=== PATIENT | male | born 1955 | race Caucasian/White ===

== ENCOUNTER → 2023-11-11 07:40 | Outpatient (REF) | payer MEDICARE, OTHER, SELFPAY ==
[2023-11-11 08:19] VITALS: BP 148/101; BP_SYST 79
[2023-11-11] MEDS: ANCEF 10 IV (08:57)
[2023-11-11 10:05] VITALS: BP 147/100; BP_SYST 67
[2023-11-11 10:20] VITALS: BP 138/96; BP_SYST 61
== END ==
LOC: RADI 07:40
PROVIDERS: ATTENDING PHYSICIAN Internal Medicine Hematology & Oncology
DX: C82.95 Follicular lymphoma, unspecified, lymph nodes of inguinal region and lower limb (principal); Z79.899 Other long term (current) drug therapy
CPT/HCPCS: 36561; 76937; 77001; 99152; 99153; C1788

== ENCOUNTER → 2023-11-14 15:37 | Outpatient (REF) | payer MEDICARE, OTHER, SELFPAY ==
[2023-11-14 16:28] LABS: % Basophils 0.4 % (0-2); % Eosinophils 2.8 % (0-6); % Immature Granulocytes 0.4 % (0-0.5); % Lymphocytes 7.6 % (20.5-51.1); % Monocytes 8.3 % (1.7-9.3); % Neutrophils 80.5 % (42.2-75.2); Absolute Eosinophils 0.2 10^3/uL (0-0.7); Absolute Lymphocytes 0.4 10^3/uL (1.2-3.4); Absolute Monocytes 0.5 10^3/uL (0.1-0.6); Absolute Neutrophils 4.6 10^3/uL (1.4-6.5); Hematocrit 31.2 % (39.0-52.0); Hemoglobin 11.3 g/dL (13.0-18.0); Mean Corp Hgb Conc. 36.2 g/dL (33.0-37.0); Mean Platelet Volume 9.3 fL (7.4-10.4); Nucleated Red Blood Cells % 0 % (-); Platelet Count 141 10^3/uL (130-400); Red Blood Cell Count 3.32 10^6/uL (4.70-6.10); Red Cell Dist. Width 14.1 % (11.5-14.5); White Blood Cell Count 5.7 10^3/uL (4.8-10.8)
[2023-11-14 16:38] LABS: INR 1.24; PT 15.6 Sec (11.4-14.6)
[2023-11-14 16:39] LABS: APTT 30.8 Sec (23.4-35.0)
[2023-11-14 16:53] LABS: ALT (SGPT) 10 U/L (0-50); AST (SGOT) 20 U/L (17-59); Albumin 4.5 g/dl (3.5-5.0); Alkaline Phosphatase 61 U/L (38-126); Blood Urea Nitrogen 16 mg/dl (9-20); Calcium 9.8 mg/dl (8.4-10.2); Carbon Dioxide 24 mmol/L (22-30); Chloride 104 mmol/L (98-107); Glucose 90 mg/dl (70-99); Potassium 4.3 mmol/L (3.5-5.1); Sodium 138 mmol/L (135-145); Total Bilirubin 1.3 mg/dl (0.2-1.3); Total Protein 6.6 g/dl (6.3-8.2); eGFR > 60.00
[2023-11-14 16:55] LABS: Uric Acid 3.6 mg/dl (3.5-8.5)
== END ==
LOC: REG 15:37
PROVIDERS: ATTENDING PHYSICIAN Surgery; FAMILY PHYSICIAN Internal Medicine Hematology & Oncology
DX: C82.95 Follicular lymphoma, unspecified, lymph nodes of inguinal region and lower limb (principal); Z01.812 Encounter for preprocedural laboratory examination; R60.9 Edema, unspecified
CPT/HCPCS: 36415; 80053; 84550; 85025; 85610; 85730

== ENCOUNTER 2023-11-19 06:13 | Day surgery (SDC) | payer MEDICARE, OTHER, SELFPAY ==
--- NOTE | 2023-11-15 14:53 | PTCARENOTE ---
Abnormal EKG ok per Dr Mary.
[2023-11-19] VITALS (8 sets, daily range): BP systolic 12–148; BP diastolic 61–96; BMI 31.8
[2023-11-19] MEDS: NORMOSOL-R 1000 IV (12:14)
[2023-11-19] MEDS: HEPARIN 5000 UNITS SC (12:15)
[2023-11-19] MEDS: TYLENOL 1000 MG PO (12:15)
[2023-11-19] MEDS: NEURONTIN 300 MG PO (12:15)
--- NOTE | 2023-11-19 13:38 | OR.RPT ---
Operative Report
Operative Report
Preoperative Diagnosis: Left inguinal lymphadenopathy - R591
Postoperative Diagnosis: Same
Surgeon: Giles Ramirez M.D.
Operation: Left inguinal lymph node biopsy - [id number]
Anesthesia:� Local with IV sedation
Estimated Blood Loss: Minimal
Drains: None
Specimen: Left Inguinal Lymph Node
Complications: �None
Procedure:
The patient was taken to the operating room and placed in the usual supine position. After adequate IV sedation was obtained, the patient's left inguinal region was prepped and draped in the usual sterile fashion. This area was injected with 1%
lidocaine. An incision was made over the area with a #15 blade. The subcutaneous tissue was divided with electrocautery. An enlarged lymph was identified. The lymph node was carefully dissected, resected of the vein, and sent for pathology
evaluation. After obtaining adequate hemostasis, the incision was closed in multiple layers. The fascia was reapproximated with # 3-0 Vicryl, and the skin was reapproximated with #4-0 Monocryl in a running subcuticular fashion. The patient tolerated
the procedure well. The final instrument, needle, and sponge counts were correct. The patient was transferred to the recovery room.
--- NOTE | 2023-11-19 13:38 | W.IMMPOSTOP ---
Surgical Immed Post Op Note
-
Preoperative Diagnosis: Left inguinal lymphadenopathy - R591
Postoperative Diagnosis: Same
Surgeon: Giles Ramirez M.D.
Operation: Left inguinal lymph node biopsy - [id number]
Anesthesia:� Local with IV sedation
Estimated Blood Loss: Minimal
Drains: None
Specimen: Left Inguinal Lymph Node
Complications: �None
--- NOTE | 2023-11-19 14:29 | PTCARENOTE ---
Report given to Linnette CASTILLO, assumed car eof pt,
== END 2023-11-19 15:10 | disposition home or self-care (01) ==
LOC: SDS 06:13
PROVIDERS: ATTENDING PHYSICIAN Surgery; FAMILY PHYSICIAN Internal Medicine Hematology & Oncology
DX: C82.18 Follicular lymphoma grade II, lymph nodes of multiple sites (principal); R59.0 Localized enlarged lymph nodes; R59.1 Generalized enlarged lymph nodes
CPT/HCPCS: 38531; 88305; 88341; 88342

== ENCOUNTER → 2023-12-06 15:19 | Outpatient (REF) | payer MEDICARE, OTHER, SELFPAY ==
[2023-12-06 16:22] LABS: % Basophils 0.4 % (0-2); % Eosinophils 3.2 % (0-6); % Immature Granulocytes 0.4 % (0-0.5); % Lymphocytes 7.6 % (20.5-51.1); % Monocytes 8.7 % (1.7-9.3); % Neutrophils 79.7 % (42.2-75.2); Absolute Eosinophils 0.2 10^3/uL (0-0.7); Absolute Lymphocytes 0.4 10^3/uL (1.2-3.4); Absolute Monocytes 0.5 10^3/uL (0.1-0.6); Absolute Neutrophils 4.5 10^3/uL (1.4-6.5); Hematocrit 29.7 % (39.0-52.0); Hemoglobin 10.9 g/dL (13.0-18.0); Mean Corp Hgb Conc. 36.7 g/dL (33.0-37.0); Mean Corpuscular Hgb 34.3 pg (27.0-31.0); Mean Corpuscular Volume 93.4 fL (80.0-94.0); Mean Platelet Volume 9.5 fL (7.4-10.4); Nucleated Red Blood Cells % 0 % (-); Platelet Count 166 10^3/uL (130-400); Red Blood Cell Count 3.18 10^6/uL (4.70-6.10); Red Cell Dist. Width 13.6 % (11.5-14.5); White Blood Cell Count 5.7 10^3/uL (4.8-10.8)
[2023-12-06 16:34] LABS: ALT (SGPT) < 10 U/L (0-50); AST (SGOT) 19 U/L (17-59); Albumin 4.2 g/dl (3.5-5.0); Alkaline Phosphatase 66 U/L (38-126); Blood Urea Nitrogen 17 mg/dl (9-20); Calcium 9.9 mg/dl (8.4-10.2); Carbon Dioxide 23 mmol/L (22-30); Chloride 107 mmol/L (98-107); Glucose 85 mg/dl (70-99); Potassium 4.2 mmol/L (3.5-5.1); Sodium 139 mmol/L (135-145); Total Bilirubin 1.1 mg/dl (0.2-1.3); Total Protein 6.3 g/dl (6.3-8.2); eGFR > 60.00
== END ==
LOC: OIDL 15:19
PROVIDERS: ATTENDING PHYSICIAN Internal Medicine Hematology & Oncology
DX: C82.95 Follicular lymphoma, unspecified, lymph nodes of inguinal region and lower limb (principal)
CPT/HCPCS: 80053; 85025

== ENCOUNTER → 2023-12-16 11:51 | Outpatient (REF) | payer MEDICARE, OTHER, SELFPAY ==
[2023-12-16 09:41] LABS: % Basophils 0.4 % (0-2); % Eosinophils 2.2 % (0-6); % Immature Granulocytes 0.4 % (0-0.5); % Monocytes 14.2 % (1.7-9.3); % Neutrophils 66.8 % (42.2-75.2); Absolute Eosinophils 0.1 10^3/uL (0-0.7); Absolute Lymphocytes 0.4 10^3/uL (1.2-3.4); Absolute Monocytes 0.3 10^3/uL (0.1-0.6); Absolute Neutrophils 1.5 10^3/uL (1.4-6.5); Hematocrit 27.9 % (39.0-52.0); Hemoglobin 10.1 g/dL (13.0-18.0); Mean Corp Hgb Conc. 36.2 g/dL (33.0-37.0); Mean Corpuscular Volume 93.9 fL (80.0-94.0); Mean Platelet Volume 9.4 fL (7.4-10.4); Nucleated Red Blood Cells % 0 % (-); Platelet Count 104 10^3/uL (130-400); Red Blood Cell Count 2.97 10^6/uL (4.70-6.10)
[2023-12-16 10:03] LABS: White Blood Cell Count 2.3 10^3/uL (4.8-10.8)
[2023-12-16 10:24] LABS: ALT (SGPT) 14 U/L (0-50); AST (SGOT) 30 U/L (17-59); Albumin 3.9 g/dl (3.5-5.0); Blood Urea Nitrogen 15 mg/dl (9-20); Carbon Dioxide 22 mmol/L (22-30); Glucose 115 mg/dl (70-99); Potassium 3.9 mmol/L (3.5-5.1); Total Bilirubin 1.8 mg/dl (0.2-1.3); Total Protein 6.1 g/dl (6.3-8.2); eGFR > 60.00
[2023-12-16 10:29] LABS: Uric Acid 4.2 mg/dl (3.5-8.5)
[2023-12-16 10:36] LABS: Alkaline Phosphatase 60 U/L (38-126); Calcium 8.9 mg/dl (8.4-10.2); Chloride 106 mmol/L (98-107); Sodium 139 mmol/L (135-145)
== END ==
LOC: OIDL 11:51
PROVIDERS: ATTENDING PHYSICIAN Internal Medicine Hematology & Oncology
DX: C82.95 Follicular lymphoma, unspecified, lymph nodes of inguinal region and lower limb (principal)
CPT/HCPCS: 80053; 84550; 85025

== ENCOUNTER → 2024-02-11 13:11 | Outpatient (REF) | payer MEDICARE, OTHER, SELFPAY | LOC: RCS 13:11 | PROVIDERS: ATTENDING PHYSICIAN Nurse Practitioner Adult Health; REFERRING PHYSICIAN Internal Medicine Hematology & Oncology | DX: C82.95 Follicular lymphoma, unspecified, lymph nodes of inguinal region and lower limb (principal); G89.3 Neoplasm related pain (acute) (chronic) | CPT/HCPCS: 93005 ==

== ENCOUNTER 2024-02-16 16:25 | Inpatient (IN) | payer MEDICARE, OTHER, SELFPAY ==
[2024-02-16] VITALS (11 sets, daily range): BP systolic 90–121; BP diastolic 50–93; BMI 32.9
[2024-02-16 08:48] LABS: % Basophils 2.5 % (0-2); % Eosinophils 1.7 % (0-6); % Immature Granulocytes 0.4 % (0-0.5); % Monocytes 11.3 % (1.7-9.3); % Neutrophils 71.1 % (42.2-75.2); Absolute Basophils 0.1 10^3/uL (0-0.2); Absolute Eosinophils 0.1 10^3/uL (0-0.7); Absolute Lymphocytes 0.7 10^3/uL (1.2-3.4); Absolute Monocytes 0.6 10^3/uL (0.1-0.6); Absolute Neutrophils 3.7 10^3/uL (1.4-6.5); Hematocrit 26.2 % (39.0-52.0); Mean Corp Hgb Conc. 34.4 g/dL (33.0-37.0); Mean Corpuscular Hgb 33.5 pg (27.0-31.0); Mean Corpuscular Volume 97.4 fL (80.0-94.0); Mean Platelet Volume 8.9 fL (7.4-10.4); Nucleated Red Blood Cells % 0 % (-); Platelet Count 163 10^3/uL (130-400); Red Blood Cell Count 2.69 10^6/uL (4.70-6.10); Red Cell Dist. Width 14.9 % (11.5-14.5); White Blood Cell Count 5.2 10^3/uL (4.8-10.8)
[2024-02-16 09:07] LABS: ALT (SGPT) 25 U/L (0-50); AST (SGOT) 132 U/L (17-59); Albumin 3.7 g/dl (3.5-5.0); Alkaline Phosphatase 67 U/L (38-126); Blood Urea Nitrogen 13 mg/dl (9-20); Calcium 9.3 mg/dl (8.4-10.2); Carbon Dioxide 20 mmol/L (22-30); Chloride 107 mmol/L (98-107); Estimated Creatinine Clearance 63 ml/min; Glucose 113 mg/dl (70-99); Potassium 3.9 mmol/L (3.5-5.1); Sodium 137 mmol/L (135-145); Total Bilirubin 1.5 mg/dl (0.2-1.3); Total Protein 5.7 g/dl (6.3-8.2); eGFR > 60.00
--- NOTE | 2024-02-16 09:09 | ED.GENMED ---
History of Present Illness
General
Chief Complaint: Musculo-Skeletal Complaint
Source: patient
Time Seen by Provider: 02/16/24 08:49
History of Present Illness
History of Present Illness:
68yoM with a history of follicular lymphoma undergoing chemotherapy and hypertension presenting with his for evaluation of bone pain. Patient reports pain in his bilateral shoulders, knees, and elbows. The pain is worst in the left
shoulder/elbow region. The symptoms started a few weeks ago when he started a new chemotherapy regimen. His pain has become increased over the past 1.5 weeks. He was told by his oncologist that his symptoms were a side effect of his chemotherapy. He
denies any injuries. He has oxycodone 10mg at home which he has been taking every 6-8 hours with temporary relief. He also reports swelling in his scrotal region and ankles over the past few weeks which he was also told was a side effect of his
chemotherapy. He denies any shortness of breath. He recently finished a 21 day course of PO Revlimid last week which is being discontinued by his oncologist due to side effects.
Phy Exam
Physical Exam
Physical Exam:
Chronically ill appearing male, appears fatigued, non toxic
General Physical Exam
General Presentation: no apparent distress
General Skin: warm and dry
General Habitus: elderly
General Mental: alert
Cardiovascular Exam
Cardiovascular Exam: regular rate/rhythm and systolic murmur
Pulmonary Exam
Pulmonary Exam: lungs clear, no respiratory distress, no crackles and no wheezing
Gastrointestinal Exam
Gastrointestinal Exam: non tender, soft and non distended
Genitourinary Exam Male
Exam Male: other (Scrotal and penile edema noted. )
Musculoskeletal Exam
Musculoskeletal Exam: edema (Edema to bilateral lower extremities, R>L)
Skin Exam
Skin Exam: normal color and warm/dry
Course
Orders/Labs/Results
Orders:
Orders
02/16/24 08:35
BNP [NT-proBNP] Urgent
Complete Blood Count/With Diff Urgent
Comprehensive Metabolic Panel Urgent
Troponin I Urgent
Comment: ADD ON
02/16/24 09:05
Electrocardiogram (*1) Urgent
Reason for Study: Other
Other Reason for Exam: leg swelling
EKG- Treatment ONCE
HYDROmorphone [Dilaudid] 1 mg IV NOW STA
Ondansetron Injectable [Zofran] 4 mg IV NOW STA
CR Chest - 2 Views Urgent
Comment:
Reason For Exam: Leg swelling
CR Shoulder - Left Min 2 View* Urgent
Comment:
Reason For Exam: Pain
02/16/24 09:30
Add On- LAB Urgent
Tests Added?: troponin
02/16/24 09:54
Furosemide [Lasix] 40 mg IV NOW STA
02/16/24 10:01
HYDROmorphone [Dilaudid] 1 mg IV NOW STA
02/16/24 11:07
Electrocardiogram (*1) Urgent
Reason for Study: Other
Other Reason for Exam: Shoulder pain
EKG- Treatment ONCE
02/16/24 12:14
Ondansetron Injectable [Zofran] 4 mg .ROUTE .STK-MED ONE
02/16/24 12:15
Ondansetron Injectable [Zofran] 4 mg IV NOW STA
02/16/24 13:17
HYDROmorphone [Dilaudid] 1 mg .ROUTE .STK-MED ONE
HYDROmorphone [Dilaudid] 1 mg IV NOW STA
02/16/24 13:58
Add On- LAB Urgent
Tests Added?: Direct and indirect bilirubin
02/16/24 14:13
Urinalysis Reflex To Culture Routine
Date Specimen was Collected: 02/16/24
Time Specimen was Collected: 14:44
MRSA Screen Routine
KAVON Source: Nose
Specimen Description:
02/16/24 14:17
Bilirubin Direct [Direct Bilirubin] Routine
Ferritin Routine
Iron Routine
TIBC [Total Iron Binding] Routine
Transferrin [S] Routine
Troponin I Q6H
Comment: cancel next Troponin if previous troponin level is normal
02/16/24 14:21
Babesia Smear [Blood Parasites] Routine
KAVON Source: Blood/Venous
Specimen Description:
Comment: Peripheral blood smear
02/16/24 15:00
Aspirin Low Dose EC [Aspir Low (Enteric Coated)] 81 mg PO DAILY
Metoprolol Xl [Toprol Xl] 25 mg PO DAILY
02/16/24 20:00
Troponin I Q6H
Comment: cancel next Troponin if previous troponin level is normal
02/17/24 02:00
Troponin I Q6H
Comment: cancel next Troponin if previous troponin level is normal
02/17/24 06:00
Echo 2D MMode Color/Doppler [Echo 2D MMode Color/Doppler] IN AM
Reason for Study: KS, chf
Lipid Profile [Cardiovascular Evaluation] IN AM
02/17/24 08:00
Troponin I Q6H
Comment: cancel next Troponin if previous troponin level is normal
Abnormal Lab Results
02/16/24 02/16/24
08:35 14:17
RBC 2.69 L 10^6/uL
(4.70-6.10)
Hgb 9.0 L g/dL
(13.0-18.0)
Hct 26.2 L %
(39.0-52.0)
MCV 97.4 H fL
(80.0-94.0)
MCH 33.5 H pg
(27.0-31.0)
RDW 14.9 H %
(11.5-14.5)
Absolute Lymphs (auto) 0.7 L 10^3/uL
(1.2-3.4)
Lymphocytes % 13.0 L %
(20.5-51.1)
Monocytes % 11.3 H %
(1.7-9.3)
Basophils % 2.5 H %
(0-2)
Carbon Dioxide 20 L mmol/L
(22-30)
Glucose 113 H mg/dl
(70-99)
Iron 41 L ug/dl
(49-181)
% Saturation 15 L %
(20-50)
Total Bilirubin 1.5 H mg/dl
(0.2-1.3)
AST 132 H U/L
(17-59)
Troponin I 15.800 H* ng/ml 17.300 H* ng/ml
Total Protein 5.7 L g/dl
(6.3-8.2)
02/16/24 08:35
02/16/24 08:35
Vital Signs
Initial and Last Documented VS:
Initial Vital Signs
Temp Pulse Resp BP Pulse Ox
98.5 F 105 18 120/86 98
02/16/24 08:11 02/16/24 08:11 02/16/24 08:11 02/16/24 08:11 02/16/24 08:11
Last Documented Vital Signs
Temp Pulse Resp BP Pulse Ox
98.5 F 99 22 110/50 99
02/16/24 08:11 02/16/24 15:01 02/16/24 15:01 02/16/24 14:00 02/16/24 15:01
MDM/Problems Addressed
Differential Diagnosis Includes:
68yoM here with bone pain. Recently finished a new round of chemotherapy. Also having scrotal/ankle edema. No CP/SOB. He is afebrile and hemodynamically stable. He appears fatigued but is non-toxic. Differential diagnosis includes but is not limited
to: chemotherapy side effect, cancer related pain, pathologic fracture, CHF
Initial ED plan: Check cardiac labs, EKG, left shoulder x-rays, and CXR. IV Dilaudid and Zofran for symptoms.
*EKG
Interpreted by ED Provider?: Yes
EKG Intrepretation Date: 02/16/24
EKG Intrepretation Time: 09:20
Interpretation: abnormal
Heart Rate: 100
Rate: normal
Rhythm: sinus
Modena: normal axis
Interval: normal interval
Ischemia: ST depression (ST depressions in I, aVL, V3-V6)
*Critical Care Note
Total Time (30-74mins, 75-104mins- exclusive of procedures): Not Applicable
Update Note
Update Note:
BNP elevated around 5200. EKG shows NSR with ST and T wave changes. Troponin came back elevated at 15. CXR shows evidence of pulmonary edema. IV Lasix given and EKG sent to cardiology for review. He was admitted for further management.
ED Attending Note
-
Portions of this chart may have been created with voice recognition software.� Occasional wrong word or��sound alike� substitutions may have occurred due to the inherent limitations of voice recognition software.
Discharge Plan
Departure
Patient Disposition: Admit
Date of Disposition: 02/16/24
Time of Disposition: 11:56
Presentation/result/management discussed w/ accepting MD/DO: Hospitalist
Discharge Problem:
Elevated troponin, Pulmonary edema, Arthralgia
Prescriptions:
No Action
atorvastatin 10 mg tablet
10 mg PO QPM
terazosin 2 mg capsule
4 mg PO QPM
benazepril 40 mg tablet
40 mg PO QPM
acyclovir 400 mg Tablet
400 mg PO BID
allopurinol 300 mg Tablet
300 mg PO QPM
Medical Marijuana
2 gummy PO DAILYPRN PRN (Reason: mild pains/anxiety)
ondansetron HCl [Zofran] 8 mg Tablet
8 mg PO [id number] PRN (Reason: nausea)
acetaminophen [Tylenol 8 Hour] 650 mg Tablet Extended Release
1,300 mg PO [id number] PRN (Reason: mildpain)
docusate sodium [Colace] 100 mg Capsule
100 mg PO BID
loratadine [Claritin] 10 mg Tablet
10 mg PO DAILY
oxycodone 10 mg Tablet
10 mg PO Q6HPRN PRN (Reason: severe pains)
Referrals:
UNKNOWN - PT DOES,NOT KNOW [Family Provider] -
Interventions
Interventions:
*Risk Screen - Suicide Last Done: 02/16/24 08:32
*General Assessment Last Done: 02/16/24 08:32
*Neglect/Abuse Screening Last Done: 02/16/24 08:33
ED- Fall Risk Assessment Last Done: 02/16/24 10:00
*ED COVID-19 Vaccine History Last Done: 02/16/24 08:32
ED-Musculoskeletal Assessment Last Done: 02/16/24 10:00
Discharge Date and Time
Print Language: [place] CITIZEN
[2024-02-16 09:10] LABS: NT-proBNP 5250 pg/ml
[2024-02-16] MEDS: ZOFRAN 4 MG IV ×2 (09:12→12:15)
[2024-02-16] MEDS: DILAUDID 1 MG IV ×3 (09:12→13:18)
[2024-02-16] MEDS: LASIX 40 MG IV (10:10)
--- NOTE | 2024-02-16 13:39 | HPS.HSE ---
Addendum entered and electronically signed by Maricruz cMrae MD 02/16/24 16:56:
68-year-old male presented with bilateral shoulder pain, elbow pain, ankle pain. Patient denies any chest pain or shortness of breath. He does not have any abdominal pain. He has follicular lymphoma and was treated with Revlimid only had 1 cycle.
Finished 1 and half weeks ago. This was stopped by his oncologist because of his pain and side effects. Patient is to start Rituxan tomorrow. He was also noted some mild increased edema the lower extremities.
I personally performed a history and physical exam of the patient and discussed management with the resident. I reviewed the resident's note and agree with the documented findings and plan of care HPI/CC except change in documentation.
On examination patient is awake and alert not in any distress
Cardiovascular system S1-S2 appreciated
Chest few rales at bases
Abdomen soft
Bilateral lower extremity edema right more than left
No redness or edema of the joints
No skin rashes
# Arthralgias-unclear cause. No evidence of redness or edema
Check sed rate and CRP
# Shoulder pain
If D-dimer is positive consider CT PE study
# Elevated troponin
Unclear of side effects of Revlimid or secondary to myocarditis or any other reasons
EKG with no acute ischemic changes
Check routine echo
Trend troponin
Patient with no chest pain or shortness of breath
Hold off on heparin
Discussed with Dr. Garvey-
# Follicular lymphoma
Consult hematology oncology
Continue allopurinol and acyclovir
# Hypertension by history-hold benazepril, terazosin
# Hyperlipidemia-continue atorvastatin
# History of nephrolithiasis
# DVT flexes-Lovenox
# Full code
Discussed with ER attending
Discussed with patient's at bedside
Original Note:
Family Physician
-
Family Physician: NOT KNOW UNKNOWN - PT DOES
Chief Complaint
-
Pain in multiple joints especially shoulders and knees bilaterally
History of Present Illness
68-year-old male with history of follicular lymphoma undergoing chemotherapy presented with his for evaluation of pain in multiple joints. Patient reports intensity and location of the pain is variable and changes every day. Pain is worse in
the left shoulder. Patient reports that he started a new chemotherapy regimen few weeks ago and upon consultation with his oncology he was informed that his joint pain is a potential side effect of chemotherapy. He denies any other recent changes
in medication. He has been using oxycodone 10 mg 3 to 4 tablets every day for pain. Patient also reports swelling in the scrotum and lower extremities, which again he was informed to be a potential side effect of chemotherapy. Patient admits that
the swelling in the right leg though is more than the left leg but has been present for many years even before he was diagnosed with lymphoma. He denies any chest pain, shortness of breath, dizziness or change in vision. He recently finished
3-week course of Revlimid and discontinued due to side effects. He is scheduled to see the oncologist 02/17/24 to discuss alternative treatment options.
Medical History
Past Medical History
Past Medical History: Reports HTN
Additional Past Medical History:
Follicular lymphoma, hyperlipidemia
Past Surgical History: Reports Other (Lymph node biopsy x2)
Social History
Tobacco: Non-smoker
Alcohol: None
Drug: Marijuana (Medical marijuana)
Personal:
Family History
Family History: Not pertinent
Allergies / Home Medications
Allergy/Medication List:
Allergies
Allergy/AdvReac Type Severity Reaction Status Date / Time
yellow fever vaccine live Allergy Anaphylaxis Verified 02/16/24 08:14
Home Medications
atorvastatin 10 mg tablet 10 mg PO QPM Hypercholesterolemia 11/08/22
benazepril 40 mg tablet 40 mg PO QPM Blood pressure 11/08/22
terazosin 2 mg capsule 4 mg PO QPM Blood pressure 11/08/22
Medical Marijuana 2 gummy PO DAILYPRN PRN mild pains/anxiety 11/18/23
acyclovir 400 mg tablet 400 mg PO BID 11/18/23
allopurinol 300 mg tablet 300 mg PO QPM 11/18/23
acetaminophen 650 mg tablet,extended release (Tylenol 8 Hour) 1,300 mg PO [id number] PRN mildpain 02/16/24
docusate sodium 100 mg capsule (Colace) 100 mg PO BID 02/16/24
loratadine 10 mg tablet (Claritin) 10 mg PO DAILY chemo treatment side efec 02/16/24
ondansetron HCl 8 mg tablet 8 mg PO [id number] PRN nausea 02/16/24
oxycodone 10 mg tablet 10 mg PO Q6HPRN PRN severe pains 02/16/24
Review of Systems
-
History Source: Patient and Other ()
Constitutional: Denies Fever
EENT: Denies Sore Throat
Respiratory: Denies Cough
Cardiac: Denies Chest Pain
Abdomen/GI: Denies Abdominal Pain
: Denies Dysuria or Frequency
Musculoskeletal: Reports Joint Pain
Skin: Denies Itching
Neurological: Denies Dizzy or Headache
Endocrine: Denies Polyuria
Hematologic/Lymphatic: Denies Bleeding
Psych: Reports Calm
Physical Exam
Vital Signs
Vital Signs
Temp Pulse Resp BP Pulse Ox
98.5 F 99 16 103/67 99
02/16/24 08:11 02/16/24 12:00 02/16/24 12:00 02/16/24 12:00 02/16/24 12:00
Physical Exam
General: Well Developed, Well Nourished and No Apparent Distress
HEENT: NormoCephalic and Anicteric
Respiratory: Clear
Cardiac: Regular Rhythm
GI: Soft, Non Tender and Other (Enlargement of scrotum)
Musculoskeletal: Edema, Left Lower Extremity and Edema, Right Lower Extremity
Skin: Warm and Dry
Neuro: Awake, Alert, Oriented and Nonfocal/grossly intact
Psych: Calm
Laboratory Results
-
02/16/24 08:35
02/16/24 08:35
Laboratory Results
Total Bilirubin 1.5 mg/dl (0.2-1.3) H 02/16/24 08:35
AST 132 U/L (17-59) H 02/16/24 08:35
ALT 25 U/L (0-50) 02/16/24 08:35
Alkaline Phosphatase 67 U/L (38-126) 02/16/24 08:35
Troponin I Cancelled 02/16/24 09:36
Data Reviewed
-
Diagnostic Radiology: Report Reviewed by me, Discussed with Physician and Discussed with Patient
Lab Data: Labs Reviewed by me, Discussed with Physician and Discussed with Patient
Impression/Plan
-
# Acute CHF with ST and T wave changes
- myocarditis from chemotherapeutic agent vs acute OK
- trops 15, 17
- B/l LE edema 4+
- Chest x-ray with CHF with elevated proBNP of 5250
- Ekg: lateral ST-T wave changes
- echo ordered- might need cath
- cardio rec addition of toprol and asa
- check esr, crp
- check D dimer and B/L LE doppler
#Arthralgia
- IV dilaudid prn for sever pain
- continue oxy 10mg Q4 prn
- shoulder XR unremarkable
# Hypertension- hold benzapril and terazosin for now given low bp
# Hyperlipidemia- continue statin
# Follicular lymphoma- onco consult pending
# Anemia- recheck in the am
Code status: Full code
DVT prophylaxis: Lovenox
--- NOTE | 2024-02-16 14:15 | CON.CAR ---
Consultation
Consultation Request
Date/Time Consultation Requested: 02/16/2024 11: 30
Date/Time Consultation Performed: 02/16/2024 13: 30
Requesting Provider: Virgie
Performing Provider: Guru
Reason for Consultation: CHF, non-STEMI
Medical History
-
Chief Complaint: Bone pain
History of Present Illness:
Jaime has a history of follicular lymphoma undergoing chemotherapy, hypertension. He presents for evaluation of bone pain which is felt to be due to chemotherapy. He has had pain in his shoulders knees and elbows. He has had chronic edema for the
last year. He also has had a 6 to 8 pound weight gain over the past several weeks. He has had swelling in his scrotal region as well. Workup revealed acute CHF and a troponin of 15 and cardiology is consulted. He denies any chest pain at the
present time. He has bipolar symptoms are due to Revlimid which he has been discontinued.
Past Medical History
Past Medical History: Other (See HPI)
Past Surgical History: None
Social History
Tobacco: Non-Smoker
Alcohol: None
Drug: None
Personal:
Living: With Family
Employment: Retired
Family History
Family History: Other (No family history of premature coronary artery disease)
Allergies / Home Medications
Allergy/AdvReac Type Severity Reaction Status Date / Time
yellow fever vaccine live Allergy Anaphylaxis Verified 02/16/24 08:14
�Medication �Instructions �Recorded �Confirmed �Type
atorvastatin 10 mg tablet 10 mg PO QPM Hypercholesterolemia 11/08/22 02/16/24 History
benazepril 40 mg tablet 40 mg PO QPM Blood pressure 11/08/22 02/16/24 History
terazosin 2 mg capsule 4 mg PO QPM Blood pressure 11/08/22 02/16/24 History
Medical Marijuana 2 gummy PO DAILYPRN PRN mild 11/18/23 02/16/24 History
pains/anxiety
acyclovir 400 mg tablet 400 mg PO BID 11/18/23 02/16/24 History
allopurinol 300 mg tablet 300 mg PO QPM 11/18/23 02/16/24 History
acetaminophen 650 mg 1,300 mg PO [id number] PRN mildpain 02/16/24 02/16/24 History
tablet,extended release (Tylenol 8
Hour)
docusate sodium 100 mg capsule 100 mg PO BID 02/16/24 02/16/24 History
(Colace)
loratadine 10 mg tablet (Claritin) 10 mg PO DAILY chemo treatment 02/16/24 02/16/24 History
side efec
ondansetron HCl 8 mg tablet 8 mg PO [id number] PRN nausea 02/16/24 02/16/24 History
oxycodone 10 mg tablet 10 mg PO Q6HPRN PRN severe pains 02/16/24 02/16/24 History
Review of Systems
-
History Source: Patient
All other systems: Negative unless noted
Constitutional: No Symptoms
EENT: No Symptoms
Respiratory: Trouble Breathing
Cardiac: No Symptoms
Abdomen/GI: No Symptoms
: No Symptoms
Musculoskeletal: Edema and Other (Bone pain and pain in shoulder, knees, elbows)
Skin: No Symptoms
Neurological: No Symptoms
Endocrine: No Symptoms
Hematologic/Lymphatic: No Symptoms
Physical Exam
Vital Signs
Temp Pulse Resp BP Pulse Ox
98.5 F 101 21 110/50 98
02/16/24 08:11 02/16/24 14:00 02/16/24 14:00 02/16/24 14:00 02/16/24 14:00
General: Well developed, well nourished in NAD.
Neck: Supple, no JVD, HJR, carotids +2 B/L, no bruits bilaterally.
Heart: Non displaced PMI, RRR, no murmurs, No S3, S4, no rubs.
Lungs: Scattered rhonchi
Abdomen: Normal bowel sounds, soft, non-tender, non-distended.
Extremities: moderate edema bilaterally.
Neuro: Grossly nonfocal, awake, alert and oriented x3.
Lab Results
02/16/24 08:35
02/16/24 08:35
Troponin I Cancelled 02/16/24 09:36
Iig-U-Lslyxpykcug Pept 5250 pg/ml 02/16/24 08:35
Impression / Plan
-
Impression
Acute CHF
Non-STEMI with troponin of [address] and T wave changes on ECG
History of follicular lymphoma followed by Dr. Ackerman
History of hypertension
Anemia
Plan:
He presents with complaints of bone pain which she felt was due to chemotherapy
He is found to have significant edema in lower extremities and in scrotum
Chest x-ray with CHF with elevated proBNP of 5250
Also evidence of a non-ST ovation ID with troponin of [address]-T wave changes
He will be admitted and will get IV Lasix. Will check echocardiogram
Will add Toprol and aspirin
May need to consider cardiac catheterization but will await results of echocardiogram of note patient denies chest pain
He was being referred as an outpatient to cardio oncology. Perhaps there may be an element of myocarditis from chemotherapeutic agent?
Discussed with ER staff and at bedside
Data Reviewed
-
EKG: Tracing Personally Visualized and interpreted
Radiology: Report Reviewed by me
Medical Tests (Nuc Med, Echo etc): Report Reviewed by me
Labs: Labs Reviewed by me
Old Records: Reviewed
[2024-02-16 14:45] LABS: Direct Bilirubin 0.1 mg/dl (0.0-0.4); Iron 41 ug/dl (49-181)
[2024-02-16 14:54] LABS: Percent Saturation 15 % (20-50); Total Iron Binding Capacity 262 ug/dl (261-462)
[2024-02-16 15:21] LABS: Ferritin 49.8 ng/ml (17.9-464.0)
[2024-02-16] MEDS: TOPROL XL 25 MG PO (15:26)
[2024-02-16] MEDS: ASPIR LOW (ENTERIC COATED) 81 MG PO (15:26)
[2024-02-16 15:41] LABS: Urine Albumin Negative (Neg - Trace); Urine Bilirubin Negative (Negative); Urine Character Clear (Clear); Urine Color Straw; Urine Glucose Negative (Negative); Urine Ketone 1+ (Negative); Urine Leukocyte Negative (Negative); Urine Nitrite Negative (Negative); Urine Occult Blood Negative (Negative); Urine Urobilinogen Negative (Neg - 1+)
[2024-02-16 16:45] LABS: Vitamin B12 918 pg/ml (239-931)
--- NOTE | 2024-02-16 18:21 | W.PN.UPDATE ---
Addendum entered and electronically signed by Maricruz Mcrae MD 02/17/24 09:20:
patient left ama Understood all ramifications including .
Blood pressure soft in ER, no new meds were ordered at discharge
Original Note:
Update Note
Progress Note Update
Patient insisted on leaving AMA without further workup. He states ' I thought I would just come get Dilaudid and go'. Despite long discussion of potential risk factors including acute [place], pulmonary embolism, myocarditis, DVT, heart failure, he
remained adamant on leaving AMA. He understands all ramifications of leaving AMA including . ER nurse and patient's was also present during discussion.
--- NOTE | 2024-02-16 18:28 | W.DCSUMMARY ---
Documented by User: Avtar Bass MD, Resident 02/16/24 18:36
Discharge Summary
Discharge Data
Date of Admission: 02/16/24
Date of Discharge: 02/16/24
-
Pending Results: Yes
Hospital Course
Discharging Physician : Avtar Bass MD ; Maricruz Mcrae MD
Disposition : Home
Primary care physician : Unknown
Principal Discharge diagnosis : Arthralgia with elevated troponin
Chronic Discharge diagnosis : Follicular lymphoma, hypertension, hyperlipidemia, history of nephrolithiasis
Hospital Course : 68-year-old male presented with bilateral shoulder pain elbow pain and ankle pain left-sided after starting a new chemotherapy regimen for follicular lymphoma he completed 1 cycle of Revlimid was discontinued due to side effects.
He presented to the ED for further evaluation and upon blood work it was found that his troponin was high and trending upwards. EKG was also found to be abnormal cardiology was consulted and he would close decided to get an echo for more
information. Given the swelling on both legs D-dimer and ultrasound of bilateral lower extremity was ordered. Patient was given IV Dilaudid for pain control in the ER. While patient was awaiting transfer from ED to the floor patient decided to
leave AMA, even upon prolonged discussion including risks of leaving without getting evaluation he remained adamant of leaving AMA and verified understanding of all the ramifications including of leaving AMA. He he states he thought he will
just come to the ED and get Dilaudid and go.
Important imaging findings : Shoulder x-ray was unremarkable
Procedure findings : EKG: NORMAL SINUS RHYTHM
SEPTAL INFARCT (CITED ON OR BEFORE 16-FEB-2024)
ST and T WAVE ABNORMALITY, CONSIDER LATERAL ISCHEMIA
ABNORMAL ECG
Discharge Plan
-
Patient Disposition: Against Medical Advice
Discharge Diagnosis/Procedures: Arthralgia with elevated troponin, Follicular lymphoma, hypertension, hyperlipidemia, history of nephrolithiasis
Condition: Fair
Diet: Low Sodium
Activity: As tolerated
Driving Restrictions: As prior to admission
Bathing Restrictions: None
Referrals:
UNKNOWN - PT DOES,NOT KNOW [Family Provider] -
Prescriptions:
No Action
atorvastatin 10 mg tablet
10 mg PO QPM
terazosin 2 mg capsule
4 mg PO QPM
benazepril 40 mg tablet
40 mg PO QPM
acyclovir 400 mg Tablet
400 mg PO BID
allopurinol 300 mg Tablet
300 mg PO QPM
Medical Marijuana
2 gummy PO DAILYPRN PRN (Reason: mild pains/anxiety)
ondansetron HCl [Zofran] 8 mg Tablet
8 mg PO [id number] PRN (Reason: nausea)
acetaminophen [Tylenol 8 Hour] 650 mg Tablet Extended Release
1,300 mg PO [id number] PRN (Reason: mildpain)
docusate sodium [Colace] 100 mg Capsule
100 mg PO BID
loratadine [Claritin] 10 mg Tablet
10 mg PO DAILY
oxycodone 10 mg Tablet
10 mg PO Q6HPRN PRN (Reason: severe pains)
Discharge Orders:
Discharge Patient (As Directed); Ordered 02/16/24
Ordered By: Avtar Bass
Discharge Date and Time
Discharge Date/Time: 02/16/24 18:41
Print Language: HONG KONGER

Documented by User: Maricruz Mcrae MD 02/17/24 09:21
Discharge Summary
Discharge Data
Date of Admission: 02/16/24
Date of Discharge: 02/17/24
Discharge Plan
-
Patient Disposition: Against Medical Advice
Discharge Diagnosis/Procedures: Arthralgia with elevated troponin, Follicular lymphoma, hypertension, hyperlipidemia, history of nephrolithiasis
Condition: Fair
Diet: Low Sodium
Activity: As tolerated
Driving Restrictions: As prior to admission
Bathing Restrictions: None
Referrals:
UNKNOWN - PT DOES,NOT KNOW [Family Provider] -
Prescriptions:
No Action
atorvastatin 10 mg tablet
10 mg PO QPM
terazosin 2 mg capsule
4 mg PO QPM
benazepril 40 mg tablet
40 mg PO QPM
acyclovir 400 mg Tablet
400 mg PO BID
allopurinol 300 mg Tablet
300 mg PO QPM
Medical Marijuana
2 gummy PO DAILYPRN PRN (Reason: mild pains/anxiety)
ondansetron HCl [Zofran] 8 mg Tablet
8 mg PO [id number] PRN (Reason: nausea)
acetaminophen [Tylenol 8 Hour] 650 mg Tablet Extended Release
1,300 mg PO [id number] PRN (Reason: mildpain)
docusate sodium [Colace] 100 mg Capsule
100 mg PO BID
loratadine [Claritin] 10 mg Tablet
10 mg PO DAILY
oxycodone 10 mg Tablet
10 mg PO Q6HPRN PRN (Reason: severe pains)
Discharge Orders:
Discharge Patient (As Directed); Ordered 02/16/24
Ordered By: Avtar Bass
Discharge Date and Time
Discharge Date/Time: 02/16/24 18:41
Print Language: HONG KONGER
[2024-02-18 20:06] LABS: Transferrin 195 mg/dL (200-360)
== END 2024-02-16 18:41 | disposition left against medical advice (07) | DRG 281 ==
LOC: ED 16:25
PROVIDERS: Emergency Medicine; Student in an Organized Health Care Education/Training Program; ADMITTING PHYSICIAN Hospitalist; ATTENDING PHYSICIAN Internal Medicine; CONSULT PHYSICIAN Internal Medicine Cardiovascular Disease; EMERGENCY PHYSICIAN Emergency Medicine
DX: I11.0 Hypertensive heart disease with heart failure (principal); C82.90 Follicular lymphoma, unspecified, unspecified site; I21.4 Non-ST elevation (NSTEMI) myocardial infarction; Z53.29 Procedure and treatment not carried out because of patient's decision for other reasons; I50.9 Heart failure, unspecified; D63.0 Anemia in neoplastic disease; E78.00 Pure hypercholesterolemia, unspecified; F41.9 Anxiety disorder, unspecified; M25.512 Pain in left shoulder; M25.511 Pain in right shoulder; M25.572 Pain in left ankle and joints of left foot; M25.522 Pain in left elbow; M25.562 Pain in left knee; M25.561 Pain in right knee; M25.521 Pain in right elbow; T45.1X5A Adverse effect of antineoplastic and immunosuppressive drugs, initial encounter; Z79.899 Other long term (current) drug therapy; Z79.891 Long term (current) use of opiate analgesic
CPT/HCPCS: 71046; 73030; 80053; 81003; 82248; 82607; 82728; 83540; 83550; 83880; 84466; 84484; 85025; 93005; 96374; 96375; 96376; 99285

== ENCOUNTER 2024-02-17 12:29 | Inpatient (IN) | payer MEDICARE, OTHER, SELFPAY ==
[2024-02-17] VITALS (12 sets, daily range): BP systolic 101–123; BP diastolic 56–88; BMI 31.2
--- NOTE | 2024-02-17 10:19 | ED.GENMED ---
History of Present Illness
General
Chief Complaint: Chest Pain
Source: patient, records and spouse
Time Seen by Provider: 02/17/24 09:55
History of Present Illness
History of Present Illness:
This patient is a 68-year-old male with a history of follicular lymphoma who presented to the emergency department yesterday with worsening bone pain. The pain first really started the day after his new chemotherapeutic agent on January 14 and has
gotten progressively worse and not managed with oral meds at home. When he came to the emergency department he was noted to have an elevated troponin and BNP, ST changes laterally on his ECG, and thought to be in heart failure. He was admitted,
seen by cardiology, but then left AGAINST MEDICAL ADVICE. He returns today because he is 'scared'. He denies chest pain, dyspnea, fever, chills. He has persistent lower extremity edema, right greater than left, and states that it looks a little
better today after getting Lasix. He denies orthopnea or PND. He has persistent nausea and dry heaves. He feels that his bone pain is now a 2 out of 10 and manageable, took his most recent dose of oxycodone this morning.
Past History
Past History
ED Past Medical History: Other (Follicular lymphoma, hypertension, hyperlipidemia, kidney stone)
Social History
Tobacco: Non-smoker
Drug: None
Personal:
Living: with family
Phy Exam
Physical Exam
Physical Exam:
GENERAL: Alert , in no apparent distress
EYE: pupils equal and reactive
NECK: Supple, no significant adenopathy.
ENT: o/p clr, mmm.
CARDIAC: Regular rate and rhythm .
LUNGS: Clear breath sounds bilaterally, no acute respiratory distress, no wheezes/rales/rhonchi
ABDOMEN: Soft, without focal tenderness, no r/g, no cvat
NEUROLOGICAL: Alert and oriented, no focal neuro deficits
SKIN: Warm and dry, skin intact.
MUSCULOSKELETAL: 2-3 + R LE edema, 2+ L le edema, well perfused. Edema extends to groin area.
PSYCH: Normal and appropriate interaction.
Scores
Heart Score for Chest Pain Patients
STEMI patient?: Not applicable
Course
Orders/Labs/Results
Orders:
Orders
02/17/24 09:52
ECG [Electrocardiogram (*1)] Urgent
Reason for Study: Chest Pain
EKG- Treatment ONCE
02/17/24 10:18
Aspirin 325 mg PO NOW STA
Furosemide [Lasix] 40 mg IV ONCE ONE
Pulse Ox/cont/shift [RESP] Stat
Quantity: 1
02/17/24 10:19
Cardiac Monitoring- Treatment ONCE
02/17/24 10:21
US Periph Venous LOWER Ext RT Urgent
Comment:
Reason For Exam: swelling, hx lymphoma
02/17/24 10:33
Echo 2D MMode Color/Doppler Urgent
Reason for Study: trop abnl, hf
02/17/24 10:37
Complete Blood Count/No Diff Urgent
Comprehensive Metabolic Panel Urgent
NT-proBNP Urgent
Troponin I Urgent
02/17/24 11:39
PTT Urgent
Comment: Obtain baseline before beginning heparin infusion if not already collected
02/17/24 11:45
Heparin 80549 Units/250 ml 25,000 units in 250 ml IV PER PROTOCOL
Weight to be used for heparin protocol in kilograms (kg):: 92.8
Protocol:: Cardiac Tx/Acute Coronary
PTT Goal Range to be used:: PTT 73 to 111 seconds
Order type:: Initial
INITIAL Infusion Dose (UNITS/KG/hr) & then follow protocol:: 12 units/kg/hr
Infusion Dose in UNITS/hr & then follow protocol (UNITS/hr):: 1,000
INFUSION RATE in mL/hr & then follow protocol (mL/hr):: 10
PTT less than or equal to 64 seconds:: Increase rate by 200 units/hr (+ 2 mL/hr)
PTT 64.1 to 72.9 seconds:: Increase rate by 100 units/hr (+ 1 mL/hr)
PTT 73 to 111 seconds:: Target Range. No change in rate.
PTT 111.1 to 130.9 seconds:: Decrease rate by 100 units/hr (- 1 mL/hr)
PTT 131 to 199.9 seconds:: HOLD for 1 hr. Then decrease rate by 200 units/hr (- 2 mL/hr)
PTT greater than or equal to 200 seconds:: HOLD for 2 hrs & Notify Provider. Then decrease by 200 units/hr (-
2 mL/hr)
Lab follow-up:: Each change, PTT q6h until 2 consecutive are therapeutic. Then PTT
daily.
02/17/24 12:09
Admit/Transfer Patient As Directed
Co-Sign Provider:
Level of Care: Inpatient admission
Assign to:: IVU
Physician / Group: Pancho Bryan
Diagnosis: NSTEMI/ACS
Reason for Hospitalization: NSTEMI/ACS
Expected length of stay greater than two midnights?: Yes
ELOS- Estimated Length of Stay in days: 3
I certify the patient meets the requirements for IP care: Yes
02/17/24 12:11
Code Status As Directed
Resuscitation Status: Full Code
02/17/24 13:48
Oxycodone [Roxicodone] 10 mg PO Q6HPRN PRN
02/17/24 13:48
CARDIOLOGY CONSULT Routine
Consulting Provider: Terry Garvey
Was physician already notified: Yes
Reason for consult: ACS/NSTEMI
Activity As Directed
Activity Level: As Tolerated
INT (Intravenous Needle Therapy) As Directed
Comment: maintain peripheral IV access
Weight As Directed
Frequency: Daily
02/17/24 13:55
Acetaminophen [Tylenol] 650 mg PO Q4HPRN PRN
02/17/24 15:00
Loratadine [Claritin] 10 mg PO DAILY@1500
02/17/24 18:00
Allopurinol [Zyloprim] 300 mg PO QPM
Atorvastatin [Lipitor] 10 mg PO QPM
02/17/24 20:00
Acyclovir [Zovirax] 400 mg PO BID
Docusate Sodium [Colace] 100 mg PO BID
02/18/24 03:14
Complete Blood Count/No Diff IN AM
Comprehensive Metabolic Panel IN AM
Glycohemoglobin (HgbA1c) IN AM
02/18/24 08:00
Furosemide [Lasix] 40 mg IV DAILY
02/19/24 05:46
Complete Blood Count/No Diff IN AM
Comprehensive Metabolic Panel IN AM
02/20/24 04:13
Complete Blood Count/No Diff IN AM
Comprehensive Metabolic Panel IN AM
Abnormal Lab Results
02/17/24 02/17/24
10:37 11:39
WBC 4.7 L 10^3/uL
(4.8-10.8)
RBC 2.58 L 10^6/uL
(4.70-6.10)
Hgb 8.9 L g/dL
(13.0-18.0)
Hct 25.6 L %
(39.0-52.0)
MCV 99.2 H fL
(80.0-94.0)
MCH 34.5 H pg
(27.0-31.0)
RDW 15.0 H %
(11.5-14.5)
APTT 71.1 H Sec
(23.4-35.0)
Glucose 128 H mg/dl
(70-99)
Total Bilirubin 1.6 H mg/dl
(0.2-1.3)
AST 91 H U/L
(17-59)
Troponin I 19.000 H* ng/ml
Total Protein 5.5 L g/dl
(6.3-8.2)
Albumin 3.4 L g/dl
(3.5-5.0)
02/17/24 11:36
02/17/24 10:37
Vital Signs
Initial and Last Documented VS:
Initial Vital Signs
Temp Pulse Resp BP Pulse Ox
98.2 F 102 22 111/79 99
02/17/24 09:48 02/17/24 09:48 02/17/24 09:48 02/17/24 09:48 02/17/24 09:48
Last Documented Vital Signs
Temp Pulse Resp BP Pulse Ox
98.8 F 85 16 106/69 94
02/22/24 17:00 02/22/24 18:00 02/22/24 17:00 02/22/24 18:00 02/22/24 17:00
*Critical Care Note
Total Time (30-74mins, 75-104mins- exclusive of procedures): Not Applicable
Update Note
Update Note:
Patient presents to the Emergency Department with __bone pain in the context of chemotherapy treatment for follicular lymphoma
Number and Complexity of Problems Addressed at the Encounter
� Chronic conditions affecting care:
� Acute Exacerbation and/or Progression of Chronic Illness:
� Differential Diagnosis includes: But not limited to chemotherapy effect creating myocarditis, non-STEMI, PE, etc. etc.
Amount and/or Complexity of Data to be Reviewed and Analyzed
� I performed an independent evaluation of and my interpretation is:
EKG: Read by me, normal sinus rhythm, normal rate, slight ST depressions noted laterally
CT:
Xrays:
Laboratory Studies:
Other:
� Review of other/old records reveals: Admission from yesterday reviewed by me including his labs and cardiology
� Clinical information was obtained by an independent historian:
� Prescriptions/Medications Considered but not given:
� Further testing considered but not performed:
Risk of Complications and/or Morbidity or Mortality of Patient Management
� Social determinants of health affecting care:
� Discussion with other providers (PCP, Hospitalists, Consultants, etc):
� Escalation of care including admission/observation vs risk of discharge considered:case d/w dr Garvey, aware pt here, agrees with order echo in ED. Case d/w dr Griffiths for admission. Pt stable, pain free, ecg unchanged from
yesterday. Labs/echo pending.
ED Attending Note
-
Portions of this chart may have been created with voice recognition software.� Occasional wrong word or��sound alike� substitutions may have occurred due to the inherent limitations of voice recognition software.
Discharge Plan
Departure
Patient Disposition: Admit
Date of Disposition: 02/17/24
Time of Disposition: 10:39
Presentation/result/management discussed w/ accepting MD/DO: Hospitalist
Condition: Fair
Discharge Problem:
Heart failure
Interventions
Interventions:
*Risk Screen - Suicide Last Done: 02/17/24 09:48
*General Assessment Last Done: 02/17/24 09:48
*Neglect/Abuse Screening Last Done: 02/17/24 09:48
*ED COVID-19 Vaccine History Last Done: 02/17/24 13:00
*Nursing Disposition Last Done: 02/17/24 13:19
ED- Cardiac Assessment Last Done: 02/17/24 10:25
Discharge Date and Time
Discharge Date/Time: 02/17/24 13:20
[2024-02-17] MEDS: ASPIRIN 325 MG PO (10:40)
--- NOTE | 2024-02-17 10:44 | W.PN.CARDCBS ---
Addendum entered and electronically signed by Terry Garvey MD 02/17/24 15:41:
I saw and examined the patient.
The SENIOR BENEFITS SPECIALIST or PA's note was reviewed and I agree with the note.
Comment: General: Well developed, well nourished in NAD.
Neck: Supple, no JVD, HJR, carotids +2 B/L, no bruits bilaterally.
Heart: Non displaced PMI, RRR, no murmurs, No S3, S4, no rubs.
Lungs: scattered rhonchi
Extremities: b/l lower extremity edema - right > left
Neuro: Grossly nonfocal, awake, alert and oriented x3.
Presented with chf and nstemi on 02/15 and signed out AMA. Called Oncology who encouraged pt to back to ED. Will diurese with iv lasix. Start Iv Heparin. Plan on cath possibly 02/17 am. d/w pt and
Original Note:
Today's Communication / Plan
-
Urgent echocardiogram
Start IV heparin drip
Continue IV diuresis with Lasix
Keep n.p.o. for now pending results of echocardiogram
Impression / Plan
-
PCP:
Occupational Medicine Officer: none prior to admission, Initial consult Dr. Garvey
Impression
Presented 02/16/2024 with all over bone pain
Acute CHF, proBNP 8800
Non-STEMI with initial troponin of 15->17.3->19
Abnormal ECG w/ lateral ST and T wave changes on ECG 02/16/2024
acute on chronic anemia
History of follicular lymphoma of right groin, followed by Dr. Ackerman previously on Revlimid 01/15/24 through 02/04/24
History of hypertension
Anemia
Chronic lymphedema of RLE
Echo 02/17/2024: ordered
Plan:
-He presented 02/16/24 with complaints of bone pain which he felt was due to chemotherapy, previously on Revlimid 01/15/24 through 02/04/24 and opted not to continue next round. However he was noted to have significant lower extremity edema, scrotal
edema and was found to have evidence of acute heart failure on chest x-ray with elevated proBNP of 5250. He was also noted to have abnormal EKG with lateral ST-T wave changes, elevated troponin of 15.8 and repeat 17.3 concerning for non-ST elevation
AR. He was provided 1 dose of IV Lasix in emergency department. Patient was admitted however later decided to sign out AMA from emergency department. He now presents back 02/17/2024 for further evaluation and work-up. Patient provided additional
dose of 40 mg IV Lasix and ASA 325 mg in ED on 02/17/2024. EKG shows sinus rhythm with nonspecific ST-T wave abnormality. ProBNP now 8800 and troponin 19.
-Acute heart failure with proBNP 8800. Agree with IV diuresis with Lasix
-Will check echocardiogram
-Abnormal troponin, initial 15->17.3->19. Trend to peak. Denies chest pain. ECG with non-specific ST-T wave abnormality
-Add Toprol and aspirin
-Start Heparin gtt
-Check lipids in am. Patient on atorvastatin 10 mg daily as outpatient
-Likely will need to consider cardiac catheterization but will await results of echocardiogram. Would keep NPO for now
-Venous Doppler ordered to rule out LE DVT
-He was being referred as an outpatient to cardio oncology. Perhaps there may be an element of myocarditis from chemotherapeutic agent?
Progress Note - Occupational Medicine Officer
Subjective
Date of Service: February 17, 2024
Patient seen and examined. Patient lying comfortably in bed. He denies shortness of breath or chest pain at this time.
Objective
Vital Signs and I&O:
Vital Signs
Temp Pulse Resp BP Pulse Ox
98.2 F 80 18 111/77 98
02/17/24 09:48 02/17/24 10:30 02/17/24 10:30 02/17/24 10:16 02/17/24 10:30
Vital Signs
Temp Pulse Resp BP Pulse Ox
98.2 F 80 18 111/77 98
02/17/24 09:48 02/17/24 10:30 02/17/24 10:30 02/17/24 10:16 02/17/24 10:30
Physical Exam
Physical Exam
GEN: No distress, awake, Ox3
HEENT: supple, anicteric, mmm; poor dentition
LUNGS:decreased BS at right base otherwise CTA, no wheezes/rales
CV: Reg, S1/S2, no murmur, rubs or gallop
ABD: soft, BS+, NT/ND
EXT: +3 edema of entire RLe, +2 edema on left
NEURO: Gross non-focal
SKIN: No rash, warm, dry, pink
[2024-02-17 10:52] LABS: Hematocrit 25.6 % (39.0-52.0); Hemoglobin 8.9 g/dL (13.0-18.0); Mean Corp Hgb Conc. 34.8 g/dL (33.0-37.0); Mean Corpuscular Hgb 34.5 pg (27.0-31.0); Mean Corpuscular Volume 99.2 fL (80.0-94.0); Mean Platelet Volume 9.3 fL (7.4-10.4); Platelet Count 169 10^3/uL (130-400); Red Blood Cell Count 2.58 10^6/uL (4.70-6.10); White Blood Cell Count 4.7 10^3/uL (4.8-10.8)
[2024-02-17 11:08] LABS: ALT (SGPT) 27 U/L (0-50); AST (SGOT) 91 U/L (17-59); Albumin 3.4 g/dl (3.5-5.0); Alkaline Phosphatase 57 U/L (38-126); Blood Urea Nitrogen 16 mg/dl (9-20); Calcium 9.1 mg/dl (8.4-10.2); Carbon Dioxide 24 mmol/L (22-30); Chloride 105 mmol/L (98-107); Estimated Creatinine Clearance 62 ml/min; Glucose 128 mg/dl (70-99); Sodium 137 mmol/L (135-145); Total Bilirubin 1.6 mg/dl (0.2-1.3); Total Protein 5.5 g/dl (6.3-8.2); eGFR > 60.00
[2024-02-17 11:12] LABS: NT-proBNP 8800 pg/ml
[2024-02-17] MEDS: LASIX 40 MG IV (11:14)
[2024-02-17 12:11] LABS: APTT 71.1 Sec (23.4-35.0)
[2024-02-17] MEDS: HEPARIN 25000 UNITS/250 ML IV (12:26)
--- NOTE | 2024-02-17 14:02 | HPS.HSE ---
Family Physician
-
Family Physician: * NONE
Chief Complaint
-
body ache, troponin elevation
History of Present Illness
Patient is a 68-year-old male with past medical history of follicular lymphoma s/p bendamustine/Rituxan followed by lenalidomide recently, essential hypertension, hyperlipidemia, gout came to ER for abnormality and cardiac enzymes. Patient
initially presented to ER yesterday for having diffuse body ache was incidentally was found to having high troponin level 15. EKG was showing anterolateral lead ST segment nonspecific depression. Cardiology evaluated patient and patient was
planned to have further cardiac workup although patient left AMA in the evening. Patient came back to ER again today to finish evaluation. In ER patient denies of having any episode of sternal/left-sided chest pain with any radiation. No reported
nausea/shortness of breath/diaphoresis. Denies of having any previous cardiac history.
Patient have right lower extremity swelling which has happened in the past secondary to inguinal lymphadenopathy/lymphoma involvement. Patient denies of having any blood clot. PET scan on october this year have shown a new extensive lymphoma
in right retroperitoneal and anteromedial aspect of right thigh. Patient have new malignant left inguinal mediastinal and left supraclavicular lymph node visualized on PET scan as well. Patient was started on lenalidomide therapy and had finished
on 02/04/2024. Due to diffuse bone ache patient is not planning to continue this moving forward. Patient f/us with Dr Ackerman from [facility].
Medical History
Past Medical History
Past Medical History: Reports Other
Additional Past Medical History:
follicular lymphoma s/p bendamustine/Rituxan followed by lenalidomide recently, essential hypertension, hyperlipidemia, gout
Past Surgical History: Reports Other
Social History
Tobacco: Non-smoker
Alcohol: None
Drug: None
Family History
Family History: Not pertinent
Allergies / Home Medications
Allergies reflects when Allergies were last updated in [employer].
Home Medications with original date entered in [employer]
Allergy/Medication List:
Allergies
Allergy/AdvReac Type Severity Reaction Status Date / Time
yellow fever vaccine live Allergy Anaphylaxis Verified 02/17/24 09:48
Home Medications
atorvastatin 10 mg tablet 10 mg PO QPM Hypercholesterolemia 11/08/22
benazepril 40 mg tablet 40 mg PO QPM Blood pressure 11/08/22
terazosin 2 mg capsule 4 mg PO QPM Blood pressure 11/08/22
Medical Marijuana 2 gummy PO DAILYPRN PRN mild pains/anxiety 11/18/23
acyclovir 400 mg tablet 400 mg PO BID Infection 11/18/23
allopurinol 300 mg tablet 300 mg PO QPM Gout 11/18/23
acetaminophen 650 mg tablet,extended release (Tylenol 8 Hour) 1,300 mg PO [id number] PRN mild pain 02/16/24
docusate sodium 100 mg capsule (Colace) 100 mg PO BID Constipation 02/16/24
loratadine 10 mg tablet (Claritin) 10 mg PO DAILY@1500 chemo treatment side efec 02/16/24
ondansetron HCl 8 mg tablet 8 mg PO [id number] PRN nausea 02/16/24
oxycodone 10 mg tablet 10 mg PO Q6HPRN PRN severe pain 02/16/24
Review of Systems
-
A 12 point ROS was completed and negative except as noted: Yes
Physical Exam
Vital Signs
Vital Signs
Temp Pulse Resp BP Pulse Ox
98.1 F 79 16 101/70 99
02/17/24 13:31 02/17/24 13:15 02/17/24 13:31 02/17/24 13:00 02/17/24 13:31
Physical Exam
General: No Apparent Distress
HEENT: Moist mucous membranes and Atraumatic
Respiratory: Clear
Cardiac: S1/S2 and Regular Rhythm; No Murmur or Rub
GI: Soft, Non Tender, Non Distended and Normal Bowel Sounds; No Organomegaly
Rectal: Deferred by Provider
Musculoskeletal: No Clubbing, No Cyanosis and Edema, Right Lower Extremity (hard, indurated soft tissue mas on right anterior thigh)
Skin: No Rash
Neuro: Nonfocal/grossly intact
Laboratory Results
-
02/17/24 11:36
02/17/24 10:37
Laboratory Results
APTT 71.1 Sec (23.4-35.0) H 02/17/24 11:39
Total Bilirubin 1.6 mg/dl (0.2-1.3) H 02/17/24 10:37
AST 91 U/L (17-59) H 02/17/24 10:37
ALT 27 U/L (0-50) 02/17/24 10:37
Alkaline Phosphatase 57 U/L (38-126) 02/17/24 10:37
Troponin I 19.000 ng/ml H* 02/17/24 10:37
Data Reviewed
-
Lab Data: Labs Reviewed by me, Discussed with Patient and Discussed with Family
Impression/Plan
-
1. ACS/NSTEMI
-Patient denies of having any typical chest pain/nausea/diaphoresis episode
-No previous h/o of CAD
-EKG reviewed from 02/[address] seg depression in V3-4-5 leads
-Trop 15.8>17.3>left hospital>19 in ER today
-cardiology evaluated and started on heparin drip
-got asa 325mg in ER, continue 81mg/d moving forward
-getting TTE in ER
-cardio planning LHC today vs tomorrow
2. Grade II follicular lymphoma
-have undergone bendamustine/Rituxan therapy in past with remission achieved
-In apr this year PET scan showing recurrence with main involvement for right thigh/retroperitoneal organ
-patient finished course of lenalidomide on 02/03
3. bilateral Lower ext swelling
-right leg swelling possibly explained by lymphoma of inguinal lymph node
-LE venous Doppler ordered
-Left inguinal LN lymphoma also noted on PET scan - not palpable on exam
-Started on IV lasix 40mg/d
4. Elevated AST
-minimal, trending down
-will need statin therapy and will need to be held if LFT uptrends
-monitor
5. Chronic normocytic anemia
-close to baseline, continue monitoring
Essential HTN
HLD
Medical marijuana use
Gout
DVTPPX - Heparin drip
Full code
--- NOTE | 2024-02-17 15:26 | PTCARENOTE ---
second troponin 20.5, Maday PRODUCTION ENGINEER aware. No CP. patient remains NPO, Echo still needs to be read.
[2024-02-17] MEDS: CLARITIN 10 MG PO (15:38)
--- NOTE | 2024-02-17 16:48 | PTCARENOTE ---
Rec'd pt this afternoon from ED. Pt explained hx of chemo medications and 'bone pain' complications that resulted. Pt had significant swelling to the lower extremities and pedal pulses were found with doppler
--- NOTE | 2024-02-17 16:51 | PTCARENOTE ---
Rec'd pt this afternoon from ED. Pt explained hx of chemo meds and complications of 'bone pain' that resulted from meds. Most of the pain originated in pt knee and lower extremities. Pt also had significant swelling to the lower extremities and
pedal pulses were found with doppler, and pt denied any calf pain or tenderness. Pt was oriented to unit and call villafuerte. Pt denies chest pain, palpitations, and SOB. Call villafuerte in reach and pt on cardiac surgeon in normal sinus rhythm with stable
vital signs (see flowchart).
[2024-02-17] MEDS: LIPITOR 10 MG PO (17:50)
[2024-02-17] MEDS: ZYLOPRIM 300 MG PO (17:50)
[2024-02-17] MEDS: ROXICODONE 10 MG PO (18:00)
--- NOTE | 2024-02-17 18:05 | PTCARENOTE ---
Pt reported 'bone pain' in lower back and right knee, reporting pain at a 7 on a scale of ten. 10 mg po Roxicodone given as ordered. Call villafuerte within reach and pt sitting in bed eating dinner.
[2024-02-17 19:37] LABS: APTT 61.3 Sec (23.4-35.0)
[2024-02-17] MEDS: COLACE 100 MG PO (19:50)
[2024-02-17] MEDS: ZOVIRAX 400 MG PO (19:50)
[2024-02-18] VITALS (7 sets, daily range): BP systolic 106–123; BP diastolic 66–88; BMI 31.2
[2024-02-18] MEDS: ROXICODONE 10 MG PO ×3 (00:15→17:52)
[2024-02-18 03:40] LABS: Hematocrit 24.4 % (39.0-52.0); Hemoglobin 8.4 g/dL (13.0-18.0); Mean Corp Hgb Conc. 34.4 g/dL (33.0-37.0); Mean Corpuscular Hgb 34.1 pg (27.0-31.0); Mean Corpuscular Volume 99.2 fL (80.0-94.0); Mean Platelet Volume 9.6 fL (7.4-10.4); Platelet Count 158 10^3/uL (130-400); Red Blood Cell Count 2.46 10^6/uL (4.70-6.10); Red Cell Dist. Width 14.6 % (11.5-14.5); White Blood Cell Count 3.6 10^3/uL (4.8-10.8)
[2024-02-18 03:58] LABS: APTT 78.1 Sec (23.4-35.0)
[2024-02-18 04:03] LABS: ALT (SGPT) 21 U/L (0-50); AST (SGOT) 61 U/L (17-59); Albumin 3.1 g/dl (3.5-5.0); Alkaline Phosphatase 55 U/L (38-126); Blood Urea Nitrogen 18 mg/dl (9-20); Calcium 8.8 mg/dl (8.4-10.2); Carbon Dioxide 26 mmol/L (22-30); Chloride 104 mmol/L (98-107); Estimated Creatinine Clearance 57 ml/min; Glucose 94 mg/dl (70-99); HDL Cholesterol 31 mg/dl; LDL Cholesterol, Calculated 59 mg/dl; Potassium 3.8 mmol/L (3.5-5.1); Sodium 137 mmol/L (135-145); Total Bilirubin 1.1 mg/dl (0.2-1.3); Total Cholesterol 106 mg/dl (50-199); Total Protein 5.1 g/dl (6.3-8.2); Triglyceride 82 mg/dl (10-149); Very Low Density Lipoprotein 16 mg/dl (0-30)
[2024-02-18] MEDS: ZOVIRAX 400 MG PO ×2 (08:01→19:53)
[2024-02-18] MEDS: COLACE PO ×2 (08:01→19:53)
[2024-02-18] MEDS: LASIX 40 MG IV (08:01)
[2024-02-18] MEDS: FLUSH (NSS) 2 FLUSH IV (08:02)
--- NOTE | 2024-02-18 08:28 | PTCARENOTE ---
received patient this am lying in bed, remains NPO for cath today. Dr. Garvey at bedside aware of am labs, cardiac cath is canceled today and hematology is consulted. IV heparin @ 1200units/hr via right sq port. will obtain PTT at 0930. monitor
remains NSR, VSS, +3 on right leg, +2 on left left, distal pulses by doppler.
[2024-02-18 08:57] LABS: Glycohemoglobin (HgbA1c) 4.6 % (4.0-5.6)
[2024-02-18 10:09] LABS: APTT 50.4 Sec (23.4-35.0)
--- NOTE | 2024-02-18 10:20 | W.PN.HOSP.TC ---
Today's Communication/Plan
-
hematology evaluation
maintain on heparin drip
Assessment / Plan
Assessment / Plan
1. ACS/NSTEMI
-Patient denies of having any typical chest pain/nausea/diaphoresis episode
-No previous h/o of CAD
-EKG reviewed from 02/[address] depression in V3-4-5 leads
-Trop 15.8>17.3>left hospital>19> 20.4 peaked
-cardiology evaluated and started on heparin drip
-got asa 325mg in ER, continue 81mg/d moving forward
-TTE showing EF 47%, stage II diastolic dysfunction, mod MR.
-LHC postponed for today with new anemia.
2. Grade II follicular lymphoma
-have undergone bendamustine/Rituxan therapy in past with remission achieved in
-In apr this year PET scan showing recurrence with main involvement for right thigh/retroperitoneal LN
-patient finished course of lenalidomide on 02/03 , does not want repeat course due to diffuse body pain.
3. bilateral Lower ext swelling
-right leg swelling possibly explained by lymphoma of inguinal lymph node
-RLE venous Doppler for clot.
-Left inguinal LN lymphoma also noted on PET scan - not palpable on exam
-Started on IV lasix 40mg/d
4. Elevated AST
-minimal, trending down
-will need statin therapy and will need to be held if LFT up-trends
-monitor
5. Chronic normocytic anemia
-trended down today
-check stool for occult blood
-Hematology evaluation requested with patient will require DAPT therapy.
Essential HTN
HLD
Medical marijuana use
Gout
DVTPPX - Heparin drip
Full code
Anticipated Discharge: 24 - 48 hours
Subjective/Interval History
-
Date of Service: February 18, 2024
no chest pain
no other reported issues
Objective Data
-
Labs:
Laboratory Results
02/18/24 02/18/24 02/18/24
03:14 09:42 16:15
WBC 3.6 L
Hgb 8.4 L
Hct 24.4 L
Plt Count 158
APTT 78.1 H 50.4 H Pending
Sodium 137
Potassium 3.8
Chloride 104
Carbon Dioxide 26
BUN 18
Creatinine 1.3
Glucose 94
Calcium 8.8
Total Bilirubin 1.1
AST 61 H
ALT 21
Alkaline Phosphatase 55
Vital Signs:
Vital Signs
Temp Pulse Resp BP Pulse Ox
98.4 F 81 18 115/77 95
02/18/24 07:00 02/18/24 09:45 02/18/24 07:00 02/18/24 08:01 02/18/24 08:30
I&O
02/17/24 02/18/24 02/19/24
06:59 06:59 06:59
Intake Total 360 / 360
Output Total 275 / 275
Balance 85 / 85
Review of Systems
-
Respiratory: Reports No Symptoms
Cardiac: Reports No Symptoms
Abdomen/GI: Reports No Symptoms
Physical Exam
-
General: No Apparent Distress and Comfortable
HEENT: Negative Oxygen
Respiratory: Clear to Auscultation
Cardiac: Regular Rhythm and S1/S2; Negative Murmur or Rub
GI: Soft, Nontender and Nondistended
Musculoskeletal: No Edema
Neuro: Awake, Alert, Oriented, No Motor Deficits and Nonfocal/Grossly Intact
Psych: Calm
--- NOTE | 2024-02-18 12:22 | CON.ONC ---
Impression
Impression
Elevated troponins, concern for acute coronary syndrome
Rapidly recurrent grade 2 follicular lymphoma
Progressive anemia
Ill-defined joint and bone pains
Plan
Plan
His anemia most likely is due to the Revlimid that he was taking. His iron stores are a little borderline, however. I do note that his MCV is increasing as well, hemolysis workup ordered.
Regarding anticipated cardiac catheterization, I have no objections. I do not see an absolute contraindication to dual antiplatelet therapy if necessary.
Patient History
History of Present Illness
Consult from Dr. Rivas regarding lymphoma
This 68-year-old man was admitted with elevated troponins. He has been experiencing ill-defined pains in his joints, predominantly knees, ankles, and shoulders, which he has described to Revlimid. He stopped taking the Revlimid about a week ago
and felt better. However, he had another more severe episode and came to the emergency room. Troponins were drawn, and they have been persistently in the 15-20 range. He specifically denies any chest symptoms. Chest x-ray suggested possible mild
heart failure. Echocardiogram revealed no dramatic abnormalities. As mentioned, he is no longer taking the Revlimid. He did recently start on a repeat set of infusions of Rituxan. In late 2022 he was treated with Bendamustine and Rituxan, with a
complete response, but recurred shortly thereafter. Repeat biopsy confirmed that he was still stage II follicular lymphoma.
Past-Medical/Surgical History
He has a history of hypertension and gout, but has been in relatively good health.
Social history: He does not smoke.
Family history is noncontributory.
Patient Medication
�Medication �Instructions �Recorded �Confirmed �Last Taken �Type
atorvastatin 10 mg tablet 10 mg PO QPM Hypercholesterolemia 11/08/22 02/17/24 02/16/24 History
benazepril 40 mg tablet 40 mg PO QPM Blood pressure 11/08/22 02/17/24 02/16/24 History
terazosin 2 mg capsule 4 mg PO QPM Blood pressure 11/08/22 02/17/24 02/16/24 History
Medical Marijuana 2 gummy PO DAILYPRN PRN mild 11/18/23 02/17/24 11/18/23 16:30 History
pains/anxiety 2 gummies per
patien
acyclovir 400 mg tablet 400 mg PO BID Infection 11/18/23 02/17/24 02/16/24 History
allopurinol 300 mg tablet 300 mg PO QPM Gout 11/18/23 02/17/24 02/16/24 History
acetaminophen 650 mg 1,300 mg PO [id number] PRN mild pain 02/16/24 02/17/24 Unknown History
tablet,extended release (Tylenol 8
Hour)
docusate sodium 100 mg capsule 100 mg PO BID Constipation 02/16/24 02/17/24 02/16/24 History
(Colace)
loratadine 10 mg tablet (Claritin) 10 mg PO DAILY@1500 chemo 02/16/24 02/17/24 02/16/24 History
treatment side efec
ondansetron HCl 8 mg tablet 8 mg PO [id number] PRN nausea 02/16/24 02/17/24 Unknown History
oxycodone 10 mg tablet 10 mg PO Q6HPRN PRN severe pain 02/16/24 02/17/24 02/17/24 History
Active Medications
Generic Name Dose Route Start Last Admin
Trade Name Freq PRN Reason Stop Dose Admin
Acetaminophen 650 mg 02/17/24 13:55
Acetaminophen 325 Mg Tablet PO 03/16/24 13:54
Q4HPRN PRN
mild pain
Acyclovir Sodium 400 mg 02/17/24 20:00 02/18/24 08:01
Acyclovir Sodium 200 Mg Capsule PO 02/27/24 19:59 400 mg
BID PILY Administration
Allopurinol 300 mg 02/17/24 18:00 02/17/24 17:50
Allopurinol 300 Mg Tablet PO 03/16/24 17:59 300 mg
QPM PILY Administration
Aspirin 81 mg 02/18/24 12:00
Aspirin 81 Mg Chewable Tablet PO 03/17/24 11:59
DAILY PILY
Atorvastatin Calcium 10 mg 02/17/24 18:00 02/17/24 17:50
Atorvastatin (Lipitor) 10 Mg Tablet PO 03/16/24 17:59 10 mg
QPM PILY Administration
Docusate Sodium 100 mg 02/17/24 20:00 02/18/24 08:01
Docusate Sodium 100 Mg Capsule PO 03/16/24 19:59 Not Given
BID PILY
Furosemide 40 mg 02/18/24 08:00 02/18/24 08:01
Furosemide 40 Mg (10 Mg/Ml) 4 Ml Vial IV 03/17/24 07:59 40 mg
DAILY PILY Administration
Heparin Sodium 25,000 units in 250 mls @ 0 mls/hr 02/17/24 11:45 02/17/24 12:26
Heparin 89867 Units/250 Ml IV 250 mls
PER PROTOCOL PILY Administration
Protocol
Per Protocol
Loratadine 10 mg 02/17/24 15:00 02/17/24 15:38
Loratadine 10 Mg Tablet PO 03/16/24 14:59 10 mg
DAILY@1500 PILY Administration
Oxycodone HCl 10 mg 02/17/24 13:48 02/18/24 05:50
Oxycodone 10 Mg Regular Release Tablet PO 03/02/24 13:47 10 mg
Q6HPRN PRN Administration
severe pain
Sodium Chloride 0 flush 02/17/24 14:00 02/18/24 08:02
Sodium Chloride 0.9% (Flush) Syringe IV 03/16/24 13:59 2 flush
PER PROTOCOL PILY Administration
Review of Systems
-
All Other Systems: Reviewed and Negative
Physical Exam
-
Physical examination shows the patient to be in no acute distress.
HEENT exam is unremarkable.
There are no palpable nodes.
Chest is clear.
The heart is regular with no murmur or gallop.
The abdomen is soft and nontender with no organomegaly or masses.
Extremities reveal that the right lower extremity is markedly swollen, with abnormalities in the skin near the groin suggestive of cutaneous involvement by lymphoma.
Neurologic is grossly intact.
Labs
Lab Results
WBC 3.6 10^3/uL (4.8-10.8) L 02/18/24 03:14
RBC 2.46 10^6/uL (4.70-6.10) L 02/18/24 03:14
Hgb 8.4 g/dL (13.0-18.0) L 02/18/24 03:14
Hct 24.4 % (39.0-52.0) L 02/18/24 03:14
MCV 99.2 fL (80.0-94.0) H 02/18/24 03:14
MCH 34.1 pg (27.0-31.0) H 02/18/24 03:14
MCHC 34.4 g/dL (33.0-37.0) 02/18/24 03:14
RDW 14.6 % (11.5-14.5) H 02/18/24 03:14
Plt Count 158 10^3/uL (130-400) 02/18/24 03:14
MPV 9.6 fL (7.4-10.4) 02/18/24 03:14
Creatinine 1.3 mg/dL (0.7-1.3) 02/18/24 03:14
Vital Signs
Vital Signs
Temp Pulse Resp BP Pulse Ox
98.4 F 81 18 115/77 95
02/18/24 07:00 02/18/24 09:45 02/18/24 07:00 02/18/24 08:01 02/18/24 08:30
[2024-02-18] MEDS: LOW STRENGTH ASPIRIN 81 MG PO (12:29)
[2024-02-18] MEDS: HEPARIN 25000 UNITS/250 ML IV (12:49)
--- NOTE | 2024-02-18 13:36 | W.PN.CARDCBS ---
Addendum entered and electronically signed by Terry Garvey MD 02/18/24 14:10:
I saw and examined the patient.
The HAND HEEL SEAT FITTER or PA's note was reviewed and I agree with the note.
Comment: General: Well developed, well nourished in NAD.
Neck: Supple, no JVD, HJR, carotids +2 B/L, no bruits bilaterally.
Heart: Non displaced PMI, RRR, no murmurs, No S3, S4, no rubs.
Lungs: Scattered rhonchi
Extremities: Mild edema bilaterally.
Neuro: Grossly nonfocal, awake, alert and oriented x3.
Discussed with primary service who consulted hematology. Hematology says okay for catheterization. Will continue to heme check stools and follow hemoglobin on heparin. Will add Toprol. Plan on cardiac catheterization on 02/18 if hemoglobin
remains stable. Will continue diuresis.
Original Note:
Today's Communication / Plan
-
Right and left heart cath in a.m.
Continue aspirin, IV heparin
Add low-dose Toprol and increase statin
Further recommendations based on results of cardiac catheterization
Impression / Plan
-
PCP:
Copy Machine Operator: none prior to admission, Initial consult Dr. Garvey
Impression
Presented 02/16/2024 with all over bone pain
Acute CHF, proBNP 8800
NSTEMI with peak trop 20.5
Abnormal ECG w/ lateral ST and T wave changes on ECG 02/16/2024
acute on chronic anemia
History of follicular lymphoma of right groin, followed by Dr. Ackerman previously on Revlimid 01/15/24 through 02/04/24
History of hypertension
Anemia
Chronic lymphedema of RLE
Echo 02/17/2024: EF 47%, mild septal hypertrophy, mid and distal septal, mid anteroseptal, anterior hypokinesis, stage II diastolic dysfunction, mild to moderate MR, mild TR, PAP 38 mmHg, top normal aortic root size
Plan:
-Patient presented with significant bone pain after recent start Revlimid. He was noted to have significant edema and evidence of heart failure as well as abnormal EKG. Troponin peaked at 20.5 with concern for NSTEMI.
-He was planned for cath today however hemoglobin dropped further to 8.4. Heme/onc consulted. [place] to be secondary to Revlimid. Okay to proceed with cath per oncology. heme test stools for completeness, however patient denies dark urine or stools
-Echocardiogram with EF 47% and anteroseptal hypokinesis, results discussed with patient and at bedside today
-Continue diuresis with IV Lasix. Creatinine stable at 1.3
-Remains with significant right lower extremity edema. Peripheral ultrasound negative for right-sided DVT
-N.p.o. after midnight for left and right heart catheterization in a.m.
-Without chest pain. Continue IV heparin. Add aspirin
-Will add Toprol 12.5 mg daily with hold parameters in place. Consider addition of RUBINA/ARB/Aldactone/SGLT2 inhibitor pending blood pressure/creatinine trends
-LDL 59. Will increase Lipitor to 40 mg QPM for now pending cath results
-He was being referred as an outpatient to cardio oncology. Perhaps there may be an element of myocarditis from chemotherapeutic agent? Defer need for adjustment in chemo regimen to heme-onc
-Discussed with nursing
PREADMIT DATA:
-He presented 02/16/24 with complaints of bone pain which he felt was due to chemotherapy, previously on Revlimid 01/15/24 through 02/04/24 and opted not to continue next round. However he was noted to have significant lower extremity edema, scrotal
edema and was found to have evidence of acute heart failure on chest x-ray with elevated proBNP of 5250. He was also noted to have abnormal EKG with lateral ST-T wave changes, elevated troponin of 15.8 and repeat 17.3 concerning for non-ST elevation
CA. He was provided 1 dose of IV Lasix in emergency department. Patient was admitted however later decided to sign out AMA from emergency department. He now presents back 02/17/2024 for further evaluation and work-up. Patient provided additional
dose of 40 mg IV Lasix and ASA 325 mg in ED on 02/17/2024. EKG shows sinus rhythm with nonspecific ST-T wave abnormality. ProBNP now 8800 and troponin 19.
Progress Note - Copy Machine Operator
Subjective
Date of Service: February 18, 2024
Denies chest pain, shortness of breath, palpitations
Objective
Labs:
02/18/24 03:14
02/18/24 03:14
Labs
Hgb 8.4 g/dL (13.0-18.0) L 02/18/24 03:14
Hct 24.4 % (39.0-52.0) L 02/18/24 03:14
Plt Count 158 10^3/uL (130-400) 02/18/24 03:14
APTT 50.4 Sec (23.4-35.0) H 02/18/24 09:42
Sodium 137 mmol/L (135-145) 02/18/24 03:14
Potassium 3.8 mmol/L (3.5-5.1) 02/18/24 03:14
BUN 18 mg/dl (9-20) 02/18/24 03:14
Creatinine 1.3 mg/dL (0.7-1.3) 02/18/24 03:14
Glucose 94 mg/dl (70-99) 02/18/24 03:14
Troponins
02/17/24 02/17/24 02/17/24
10:37 14:00 14:25
Troponin I 19.000 H* Cancelled Cancelled
02/17/24 02/17/24 02/17/24
14:36 18:00 18:49
Troponin I 20.500 H* Cancelled 19.600 H*
02/17/24 02/18/24
22:00 03:14
Troponin I Cancelled 17.600 H*
Vital Signs and I&O:
Vital Signs
Temp Pulse Resp BP Pulse Ox
97.8 F 73 18 123/81 100
02/18/24 12:28 02/18/24 13:00 02/18/24 12:28 02/18/24 12:26 02/18/24 12:28
Vital Signs
Temp Pulse Resp BP Pulse Ox
97.8 F 73 18 123/81 100
02/18/24 12:28 02/18/24 13:00 02/18/24 12:28 02/18/24 12:26 02/18/24 12:28
Intake & Output
02/16/24 02/17/24 02/18/24 02/19/24
07:59 07:59 07:59 07:59
Intake Total 360 / 360
Output Total 275 / 275
Balance 85 / 85
Physical Exam
Physical Exam
GEN: No distress, awake, alert, oriented x3. Ill-appearing
HEENT: supple, anicteric, mmm, EOMI
LUNGS: CTA bilaterally, no wheezes/rales
CV: Reg, S1/S2, no murmur
EXT: No cyanosis, clubbing. 3+ edema of right lower extremity
NEURO: Gross non-focal
SKIN: Warm, pink, dry. No rash
[2024-02-18] MEDS: CLARITIN 10 MG PO (13:59)
[2024-02-18] MEDS: TOPROL XL 12.5 MG PO (13:59)
--- NOTE | 2024-02-18 14:15 | CM ---
Chart reviewed. Patient is independent of ADLS, lives with his significant other in a 2 STH, 6 ASAD, 0 DME. Patient currently with no discharge needs. CM to follow
[2024-02-18 17:27] LABS: APTT 31.7 Sec (23.4-35.0)
[2024-02-18] MEDS: LIPITOR 40 MG PO (17:47)
[2024-02-18] MEDS: ZYLOPRIM 300 MG PO (17:47)
--- NOTE | 2024-02-18 17:53 | PTCARENOTE ---
patient c/o Lower back pain, right knee pain, Roxicodone po given as ordered.
[2024-02-19] VITALS (7 sets, daily range): BP systolic 99–122; BP diastolic 70–94; BMI 30.7
[2024-02-19] MEDS: ROXICODONE 10 MG PO ×4 (01:26→23:31)
[2024-02-19] MEDS: HEPARIN 25000 UNITS/250 ML IV (01:27)
[2024-02-19 01:40] LABS: APTT 115.9 Sec (23.4-35.0)
--- NOTE | 2024-02-19 02:45 | PTCARENOTE ---
Pt. has no complaints of CP/discomfort this shift, VSS, NSR on the monitor. Pt. NPO for CC in AM; plan of care discussed, understanding verbalized. Heparin infusing as per order. Pt. currently sleeping.
[2024-02-19 06:05] LABS: Hematocrit 25.3 % (39.0-52.0); Hemoglobin 8.8 g/dL (13.0-18.0); Mean Corp Hgb Conc. 34.8 g/dL (33.0-37.0); Mean Corpuscular Hgb 34.2 pg (27.0-31.0); Mean Corpuscular Volume 98.4 fL (80.0-94.0); Mean Platelet Volume 9.5 fL (7.4-10.4); Platelet Count 170 10^3/uL (130-400); Red Blood Cell Count 2.57 10^6/uL (4.70-6.10); Red Cell Dist. Width 14.6 % (11.5-14.5); White Blood Cell Count 3.4 10^3/uL (4.8-10.8)
[2024-02-19 06:19] LABS: ALT (SGPT) 17 U/L (0-50); AST (SGOT) 38 U/L (17-59); Albumin 3.3 g/dl (3.5-5.0); Alkaline Phosphatase 58 U/L (38-126); Blood Urea Nitrogen 20 mg/dl (9-20); Calcium 8.8 mg/dl (8.4-10.2); Carbon Dioxide 27 mmol/L (22-30); Chloride 103 mmol/L (98-107); Estimated Creatinine Clearance 57 ml/min; Glucose 101 mg/dl (70-99); LDH 390 U/L (120-246); Potassium 3.7 mmol/L (3.5-5.1); Sodium 137 mmol/L (135-145); Total Bilirubin 1.2 mg/dl (0.2-1.3); Total Protein 5.2 g/dl (6.3-8.2)
[2024-02-19 06:20] LABS: Reticulocyte Count 3.1 % (0.4-2.8)
--- NOTE | 2024-02-19 08:00 | PTCARENOTE ---
resumed care of patient. in bed at time of assessment but independent in transfers and walking in room and to and from bathroom. VSS. SR on monitor. no chest pain reported. lungs diminshed but clear. +3 edema on R leg and +2 on left. pulses by
doppler,. NPO for cath today. heparin @ 1500units/hr via right sq port. will continue to monitor.
[2024-02-19] MEDS: COLACE 100 MG PO ×2 (08:39→19:57)
[2024-02-19] MEDS: TOPROL XL 12.5 MG PO (08:39)
[2024-02-19] MEDS: LASIX 40 MG IV (08:40)
[2024-02-19] MEDS: ZOVIRAX 400 MG PO ×2 (08:46→19:57)
[2024-02-19] MEDS: LOW STRENGTH ASPIRIN 81 MG PO (08:46)
[2024-02-19 11:38] LABS: APTT 100.2 Sec (23.4-35.0)
--- NOTE | 2024-02-19 14:47 | W.PN.HOSP.TC ---
Today's Communication/Plan
-
for [facility] today
Assessment / Plan
Assessment / Plan
1. ACS/NSTEMI
-Patient denies of having any typical chest pain/nausea/diaphoresis episode
-No previous h/o of CAD
-EKG reviewed from 02/[address] depression in V3-4-5 leads
-Trop 15.8>17.3>left hospital>19> 20.4 peaked
-cardiology evaluated and started on heparin drip
-got asa 325mg in ER, continue 81mg/d moving forward
-TTE showing EF 47%, stage II diastolic dysfunction, mod MR.
-Pending [facility] today
2. Grade II follicular lymphoma
-have undergone bendamustine/Rituxan therapy in past with remission achieved in
-In apr this year PET scan showing recurrence with main involvement for right thigh/retroperitoneal LN
-patient finished course of lenalidomide on 02/03 , does not want repeat course due to diffuse body pain.
3. bilateral Lower ext swelling
-right leg swelling possibly explained by lymphoma of inguinal lymph node
-RLE venous Doppler for clot.
-Left inguinal LN lymphoma also noted on PET scan - not palpable on exam
-Started on IV lasix 40mg/d
4. Elevated AST
-minimal, trending down
-will need statin therapy and will need to be held if LFT up-trends
-monitor
5. Chronic normocytic anemia
-trended down today
-check stool for occult blood
-Hematology evaluated and ok with LHC/DAPT need
Essential HTN
HLD
Medical marijuana use
Gout
DVTPPX - Heparin drip
Full code
Anticipated Discharge: 24 - 48 hours
Subjective/Interval History
-
Date of Service: February 19, 2024
no chest pain overnight
Objective Data
-
Labs:
Laboratory Results
02/19/24 02/19/24
05:46 11:16
WBC 3.4 L
Hgb 8.8 L
Hct 25.3 L
Plt Count 170
APTT 100.2 H
Sodium 137
Potassium 3.7
Chloride 103
Carbon Dioxide 27
BUN 20
Creatinine 1.3
Glucose 101 H
Calcium 8.8
Total Bilirubin 1.2
AST 38
ALT 17
Alkaline Phosphatase 58
Vital Signs:
Vital Signs
Temp Pulse Resp BP Pulse Ox
98.4 F 78 16 112/78 100
02/19/24 11:19 02/19/24 08:39 02/19/24 11:19 02/19/24 08:39 02/19/24 11:19
I&O
02/18/24 02/19/24 02/20/24
06:59 06:59 06:59
Intake Total 360 / 360 240 / 240
Output Total 275 / 275
Balance 85 / 85 240 / 240
Review of Systems
-
Respiratory: Reports No Symptoms
Cardiac: Reports No Symptoms
Abdomen/GI: Reports No Symptoms
Physical Exam
-
General: No Apparent Distress and Comfortable
HEENT: Negative Oxygen
Respiratory: Clear to Auscultation
Cardiac: Regular Rhythm and S1/S2; Negative Murmur or Rub
GI: Soft, Nontender and Nondistended
Musculoskeletal: No Edema
Neuro: Awake, Alert, Oriented, No Motor Deficits and Nonfocal/Grossly Intact
Psych: Calm
[2024-02-19] MEDS: CLARITIN PO (16:23)
--- NOTE | 2024-02-19 16:45 | PTCARENOTE ---
sent in bed with cath labs RNS for cardiac cath.
[2024-02-19] MEDS: LIPITOR 40 MG PO (17:44)
[2024-02-19] MEDS: ZYLOPRIM 300 MG PO (17:44)
--- NOTE | 2024-02-19 19:20 | ITS.CL.CATH ---
[facility] - Catheterization
Cardiac Catheterization
Procedure Report:
LEFT HEART CATHETERIZATION
Date of Procedure: February 19, 2024
Referring: Terry Garvey
PROCEDURES:
1. Left heart catheterization, coronary angiogram.
2. Ultrasound-guided access
INDICATION: NSTEMI
ACCESS: Right radial artery, 6 Bulgarian sheath, under ultrasound guidance
HEMODYNAMICS : (mmHg)
AO (s/d) : 109/61
LV (s/d) : 122/8
LVEDP : 33
CORONARY FINDINGS
DOMINANCE: Right
LEFT MAIN: The left main artery is a large-caliber vessel which gives rise to the left anterior descending artery and the left circumflex artery. There is a heavily calcified eccentric 85% stenosis in the mid to distal left main extending into the
ostial LAD and ostial left circumflex artery ([place] 1, 1, 1)
LEFT ANTERIOR DESCENDING: The left into descending artery is a medium caliber vessel which gives rise to multiple small caliber diagonal branches as it courses to the anterior interventricular groove towards the apex. Ostial LAD has 50 to 60%
stenosis. Proximal to mid LAD has calcified diffuse up to 80% stenosis. Distal LAD has a tubular 85% stenosis. There is a branching diagonal vessel which has moderate to severe diffuse atherosclerotic plaque.
CIRCUMFLEX: The left circumflex artery is a medium caliber, nondominant vessel which gives rise to 1 major large caliber branching obtuse marginal branch. There is 30 to 40% proximal left circumflex stenosis. OM1 has 60 to 70% focal stenosis in
the upper branch.
RIGHT CORONARY ARTERY: The right coronary artery is a medium to large caliber, dominant vessel which gives rise to the right posterior descending artery and the right posterolateral system. There is mild diffuse atherosclerotic plaque in the RCA
and moderate to severe diffuse atherosclerotic plaque in the RPDA which is very small in caliber.
SEDATION: 30 minutes of procedural sedation was utilized. An independent medical record clerk was present to assist with and help manage the patient's level of consciousness and physiologic status.
RADIATION SUMMARY: Fluoro Time (min): 4.6, Dose (mGy): 387.61, DAP (Gy.cm2) : 24.96
Closure Device: Vascular band over right radial artery, 10 cc of air
CONCLUSIONS
1. Significant multivessel coronary artery disease involving mid to distal left main.
2. Significantly elevated LVEDP at 33 mmHg[address]
RECOMM[address]. [address] surgery consult for consideration for coronary artery bypass grafting along with multidisciplinary discussion with oncology in regards to overall prognosis due to underlying lymphoma.
3. Continue medical therapy for acute coronary syndrome.
4. Aggressive management of cardiovascular risk factors.
5. Eventual outpatient referral for cardiac rehab
Copy to: Terry Garvey
Gisell Gordon MD, FACC, [facility]
--- NOTE | 2024-02-19 20:14 | PTCARENOTE ---
Pt. received at change of shift. Pt. seen and assessed with at bedside. TR band checked, site c/d/i. Pt. AOx3. Pt. complaining of b/l leg pain 5/10, but can wait until midnight dose of pain medication. No other complaints at this time.
Continuing to monitor the pt.
[2024-02-20] VITALS (8 sets, daily range): BP systolic 103–132; BP diastolic 73–84; BMI 30.7
[2024-02-20 04:58] LABS: Hematocrit 27.2 % (39.0-52.0); Hemoglobin 9.3 g/dL (13.0-18.0); Mean Corp Hgb Conc. 34.2 g/dL (33.0-37.0); Mean Corpuscular Hgb 32.6 pg (27.0-31.0); Mean Corpuscular Volume 95.4 fL (80.0-94.0); Mean Platelet Volume 9.4 fL (7.4-10.4); Platelet Count 195 10^3/uL (130-400); Red Blood Cell Count 2.85 10^6/uL (4.70-6.10); Red Cell Dist. Width 14.6 % (11.5-14.5); White Blood Cell Count 3.6 10^3/uL (4.8-10.8)
[2024-02-20 05:27] LABS: ALT (SGPT) 16 U/L (0-50); AST (SGOT) 30 U/L (17-59); Albumin 3.6 g/dl (3.5-5.0); Alkaline Phosphatase 59 U/L (38-126); Blood Urea Nitrogen 20 mg/dl (9-20); Calcium 9.1 mg/dl (8.4-10.2); Carbon Dioxide 27 mmol/L (22-30); Chloride 103 mmol/L (98-107); Estimated Creatinine Clearance 61 ml/min; Glucose 94 mg/dl (70-99); Potassium 3.9 mmol/L (3.5-5.1); Sodium 138 mmol/L (135-145); Total Bilirubin 1.3 mg/dl (0.2-1.3); Total Protein 5.6 g/dl (6.3-8.2); eGFR > 60.00
--- NOTE | 2024-02-20 07:49 | W.PN.CARDCBS ---
Addendum entered and electronically signed by Antonio Chase MD 02/20/24 10:48:
Patient offers no complaints at this time. Per patient, Dr. Ackerman feels that patient is a candidate for CABG. CT surgery currently evaluating.
PMH/PSH/SH/FH: Reviewed
Allergies: None to oral medication
Outpatient meds: Allopurinol, acyclovir, atorvastatin 10 mg a day, benazepril 40 mg a day, Zofran, Terazosin.
Current meds: Acyclovir, Claritin, Colace, allopurinol, furosemide 40 IV daily, aspirin 81 mg a day, metoprolol ER 12.5 mg daily atorvastatin 40 mg daily and IV heparin
ROS: Negative except as above
124/84 pulse 96, respiratory 20, afebrile weight is 88.7 kg, weight was 95.2 kg on admission
Head neck exam unremarkable, lungs are clear, regular rate and rhythm without obvious murmurs, abdomen benign extremities without clubbing cyanosis edema distal pulses are intact, neuro nonfocal
White count 3.6, hemoglobin 9.3, platelets 195, potassium 3.9, BUN/creatinine 21.2,
ECG sinus rhythm nonspecific ST and T changes, lateral ST segment changes
Impression:
Acute HFmrEF, proBNP 8800
NSTEMI with peak trop 20.5
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
acute on chronic anemia
History of follicular lymphoma of right groin, followed by Dr. Ackerman previously on Revlimid 01/15/24 through 02/04/24
History of hypertension
Anemia
Chronic lymphedema of RLE
Plan:
Despite left main disease with mild LV dysfunction, Mr. Soto seems metastable at this time.
It seems that consensus is building to proceed to CABG shortly.
Continue heparin, continue IV Lasix for now.
Original Note:
Today's Communication / Plan
-
resume IV heparin
await CT surgical evaluation
Impression / Plan
-
PCP:
[employer]: none prior to admission, Initial consult Dr. Garvey
Impression
Presented 02/16/2024 with all over bone pain
Acute CHF, proBNP 8800
NSTEMI with peak trop 20.5
Abnormal ECG w/ lateral ST and T wave changes on ECG 02/16/2024
acute on chronic anemia
History of follicular lymphoma of right groin, followed by Dr. Akcerman previously on Revlimid 01/15/24 through 02/04/24
History of hypertension
Anemia
Chronic lymphedema of RLE
Echo 02/17/2024: EF 47%, mild septal hypertrophy, mid and distal septal, mid anteroseptal, anterior hypokinesis, stage II diastolic dysfunction, mild to moderate MR, mild TR, PAP 38 mmHg, top normal aortic root size
Plan:
-Patient presented with significant bone pain after recent start Revlimid for lymphoma. He was noted to have significant edema and evidence of heart failure as well as abnormal EKG. Troponin peaked at 20.5 with concern for NSTEMI.
-Echocardiogram with EF 47% and anteroseptal hypokinesis
-underwent cath 02/18 with MV CAD including L main disease.
-CT surgery consulted for evaluation
-hgb 9.3. heme/onc following. currently off IV heparin post cath, will resume
-continue IV lasix diuresis with 40mg daily. Cr stable at 1.2
-continue asa, toprol
-LDL 59. lipitor increased to 40mg QPM
-Consider eventual addition of RUBINA/ARB/Aldactone/SGLT2 inhibitor but await surgical eval
-Remains with significant right lower extremity edema. Peripheral ultrasound negative for right-sided DVT
-He was being referred as an outpatient to cardio oncology. Perhaps there may be an element of myocarditis from chemotherapeutic agent? Defer need for adjustment in chemo regimen to heme-onc
PREADMIT DATA:
-He presented 02/16/24 with complaints of bone pain which he felt was due to chemotherapy, previously on Revlimid 01/15/24 through 02/04/24 and opted not to continue next round. However he was noted to have significant lower extremity edema, scrotal
edema and was found to have evidence of acute heart failure on chest x-ray with elevated proBNP of 5250. He was also noted to have abnormal EKG with lateral ST-T wave changes, elevated troponin of 15.8 and repeat 17.3 concerning for non-ST elevation
[place]. He was provided 1 dose of IV Lasix in emergency department. Patient was admitted however later decided to sign out AMA from emergency department. He now presents back 02/17/2024 for further evaluation and work-up. Patient provided additional
dose of 40 mg IV Lasix and ASA 325 mg in ED on 02/17/2024. EKG shows sinus rhythm with nonspecific ST-T wave abnormality. ProBNP now 8800 and troponin 19.
Progress Note - [employer]
Subjective
Date of Service: February 20, 2024
No chest discomfort or shortness of breath overnight
Objective
Labs:
02/20/24 04:13
02/20/24 04:13
Labs
Hgb 9.3 g/dL (13.0-18.0) L 02/20/24 04:13
Hct 27.2 % (39.0-52.0) L 02/20/24 04:13
Plt Count 195 10^3/uL (130-400) 02/20/24 04:13
APTT 100.2 Sec (23.4-35.0) H 02/19/24 11:16
Sodium 138 mmol/L (135-145) 02/20/24 04:13
Potassium 3.9 mmol/L (3.5-5.1) 02/20/24 04:13
BUN 20 mg/dl (9-20) 02/20/24 04:13
Creatinine 1.2 mg/dL (0.7-1.3) 02/20/24 04:13
Glucose 94 mg/dl (70-99) 02/20/24 04:13
Troponins
02/17/24 02/17/24 02/17/24
10:37 14:00 14:25
Troponin I 19.000 H* Cancelled Cancelled
02/17/24 02/17/24 02/17/24
14:36 18:00 18:49
Troponin I 20.500 H* Cancelled 19.600 H*
02/17/24 02/18/24
22:00 03:14
Troponin I Cancelled 17.600 H*
Vital Signs and I&O:
Vital Signs
Temp Pulse Resp BP Pulse Ox
98.6 F 70 20 103/77 98
02/20/24 07:06 02/20/24 03:38 02/20/24 07:06 02/20/24 03:38 02/20/24 07:06
Vital Signs
Temp Pulse Resp BP Pulse Ox
98.6 F 70 20 103/77 98
02/20/24 07:06 02/20/24 03:38 02/20/24 07:06 02/20/24 03:38 02/20/24 07:06
Intake & Output
02/17/24 02/18/24 02/19/24 02/20/24
07:59 07:59 07:59 07:59
Intake Total 360 / 360 240 / 300 210 / 210
Output Total 275 / 275
Balance 85 / 85 240 / 300 210 / 210
Physical Exam
Physical Exam
GEN: No distress, awake, alert, oriented x3
HEENT: supple, anicteric, mmm, eomi
LUNGS: CTA B/L, no wheezes/rales
CV: Reg, S1/S2, no murmur
ABD: soft, BS+, NT/ND
EXT: No cyanosis, clubbing, edema
NEURO: Gross non-focal
SKIN: warm, pink, dry. No rash. R radial site c/d/i.
[2024-02-20] MEDS: COLACE 100 MG PO ×2 (08:17→19:19)
[2024-02-20] MEDS: ZOVIRAX 400 MG PO ×2 (08:17→19:19)
[2024-02-20] MEDS: LOW STRENGTH ASPIRIN 81 MG PO (08:17)
[2024-02-20] MEDS: TOPROL XL 12.5 MG PO (08:18)
[2024-02-20] MEDS: LASIX 40 MG IV ×2 (08:21→17:28)
[2024-02-20] MEDS: ROXICODONE 10 MG PO ×2 (09:08→17:55)
[2024-02-20] MEDS: HEPARIN 25000 UNITS/250 ML IV (10:16)
--- NOTE | 2024-02-20 10:30 | W.PN.ONC2 ---
Today's Communication / Plan
-
prognosis appropriate to proceed with planned cardiac procedures
IV iron
antineoplastic resume upon hospital recovery in outpt follow up with Dr. Ackerman
Impression
Impression
NSTEMI, underwent cath 02/18 with MV CAD including L main disease
Acute CHF, LVEF 47%
Rapidly recurrent grade 2 follicular lymphoma, on Revlimid 01/15/24 through 02/04/24
Progressive anemia
Ill-defined joint and bone pains
RLE edema, US negative for DVT
Plan
Plan
Anemia 2/2 Revlimid, iron deficiency with ferritin 50, IS 15%, Macrocytosis 95 secondary to reticulocytosis 3.1%, hemolysis unlikely with normal LFTs, haptoglobin pending. IV iron ordered. check heme stool
NSTEMI on heparin gtt, management per cardiology
Subjective/Objective
Chief Complaint
denies overt bleeding
using oxy IR prn pain
Subjective
Vital Signs:
Vital Signs
Temp Pulse Resp BP Pulse Ox
98.6 F 96 20 124/84 98
02/20/24 07:06 02/20/24 08:21 02/20/24 07:06 02/20/24 08:21 02/20/24 07:06
Lab Results:
Laboratory Data
WBC 3.6 10^3/uL (4.8-10.8) L 02/20/24 04:13
Hgb 9.3 g/dL (13.0-18.0) L 02/20/24 04:13
Plt Count 195 10^3/uL (130-400) 02/20/24 04:13
APTT 100.2 Sec (23.4-35.0) H 02/19/24 11:16
eGFR > 60.00 02/20/24 04:13
Physical Exam
no acute distress.
HEENT anicteric, no oral lesions
Chest is clear.
CV RRR
The abdomen is soft and nontender
Extremities reveal that the right lower extremity is markedly swollen, with abnormalities in the skin near the groin suggestive of cutaneous involvement by lymphoma.
Neurologic is grossly intact, speech clear
Review of Systems
Review of Systems
Review of systems notable for subjective otherwise negative
--- NOTE | 2024-02-20 11:22 | CONSULT.CT ---
Consultation
-
Date/Time Consultation Requested: 02/20/24
Date/Time Consultation Performed: 02/20/24 11:30
Requesting Provider: Dr. Gisell Gordon MD
Performing Provider: Genia Morton PA-C
Reason for Consultation: Evaluation for coronary artery revascularization
Patient History
Physicians
Family Physician: Uses Dr. Rakan Ackerman, DO also hematology oncology
Outpatient City Dispatcher: None
Inpatient City Dispatcher: LES, Dr. Terry Garvey MD.
History of Present Illness
Patient is an extremely pleasant 68-year-old male with history of follicular lymphoma of the right groin diagnosed 10/2022 and treated with radiation (10/2022), and chemotherapy via Revlimid 01/15/24-02/04/[address] Rakan Ackerman.
Patient also carries a h/o HTN, HLD, gout, chronic lymphedema of the right lower extremity, and acute on chronic anemia.
Patient presented to [facility]'s emergency department on 02/16/2024 with chief complaints of severe, and diffuse bone pain secondary to the patient's follicular lymphoma and chemotherapy. Upon further workup in the emergency department he
was found to have abnormal EKG with lateral ST and T wave changes. Further lab workup revealed elevated troponins with a peak of 20.5 ruling the patient in for a NSTEMI.
After some disagreement in the emergency department patient decided to leave [facility]. He had an appointment with his oncologist Dr. Ackerman the following day on 02/17/24. After discussion with Dr. Ackerman who reviewed his recent hospital stay, Dr. Ackerman
directed the patient back to the emergency department for further admission and workup. He represented on 02/17/24 for continuation of his cardiac workup. Subsequent cardiac catheterization on 02/19/[address] Gordon revealed LM MV CAD. Please see
summary below for full details.
Cardiac catheterization: 02/19/24 Evan
LM: 85% mid-distal stenosis extending into ostial LAD
LAD: 50-60% ostial, 80% prox-mid, 85% distal
LCx: 30-40% prox
OM1: 60-70%
RCA: moderate to severe plaque in rPDA which is very small in caliber
TTEchocardiogram: 02/17/24 Guru
EF: 47%
Mitral: mild-moderate MR
Aortic: trace AI
Tricuspid: mild TR
Pulmonic: trace TX
LVSD: 38
LVDD: 51
PAP: 38
Past Medical History
Past Medical History: Other
Follicular lymphoma of the right groin
-Diagnosed 10/2022 and treated with radiation (10/2022), and chemotherapy via Revlimid 01/15/24-02/04/[address] Rakan Ackerman
HTN, HLD
Gout
Chronic lymphedema of the right lower extremity
Acute on chronic anemia
Past Surgical History
Past Surgical History: Other
Right IR groin biopsy 10/2022
Surgical right groin biopsy 11/[address] Giles Amin MD.
Dental History
Noncontributory
Family History
Family Medical History: Unable to Obtain (Patient not in close contact with family. Father is in his late 70s secondary to CVA. Mother's history is unknown.)
Social History
Alcohol: Occasional
Drug: Marijuana (Medical)
Tobacco: Non-Smoker
Personal:
Living: With Spouse
Employment: Retired (Formally worked in [employer])
Allergies
Allergy/AdvReac Type Severity Reaction Status Date / Time
yellow fever vaccine live Allergy Anaphylaxis Verified 02/17/24 09:48
Home Medications
�Medication �Instructions �Recorded �Confirmed �Type
atorvastatin 10 mg tablet 10 mg PO QPM Hypercholesterolemia 11/08/22 02/17/24 History
benazepril 40 mg tablet 40 mg PO QPM Blood pressure 11/08/22 02/17/24 History
terazosin 2 mg capsule 4 mg PO QPM Blood pressure 11/08/22 02/17/24 History
Medical Marijuana 2 gummy PO DAILYPRN PRN mild 11/18/23 02/17/24 History
pains/anxiety
acyclovir 400 mg tablet 400 mg PO BID Infection 11/18/23 02/17/24 History
allopurinol 300 mg tablet 300 mg PO QPM Gout 11/18/23 02/17/24 History
acetaminophen 650 mg 1,300 mg PO [id number] PRN mild pain 02/16/24 02/17/24 History
tablet,extended release (Tylenol 8
Hour)
docusate sodium 100 mg capsule 100 mg PO BID Constipation 02/16/24 02/17/24 History
(Colace)
loratadine 10 mg tablet (Claritin) 10 mg PO DAILY@1500 chemo 02/16/24 02/17/24 History
treatment side efec
ondansetron HCl 8 mg tablet 8 mg PO [id number] PRN nausea 02/16/24 02/17/24 History
oxycodone 10 mg tablet 10 mg PO Q6HPRN PRN severe pain 02/16/24 02/17/24 History
Review of Systems
-
History Source: Patient
General: Reports Fatigue; Denies Fever, Weight Gain or Weight Loss
HEENT: Denies Visual Changes, Dysphagia or Hoarseness
Respiratory: Denies SOB, ROLLINS, Cough, Asthma or PND
Cardiac: Reports Edema (Right lower extremity secondary to right follicular lymphoma); Denies Chest Pain, Known Vascular Disease, Palpitations or Diaphoresis
Abdomen/GI: Denies Abdominal Pain, Reflux, Indigestion, Nausea, Vomiting, BRBPR or Ulcers
: Denies Dysuria, Frequency, Incontinence, Urgency or Hematuria
Musculoskeletal: Reports Myalgias, Arthralgias, Joint Pain and Edema (Right lower extremity secondary to right follicular lymphoma)
Skin: Denies Itching or Rash
Neurological: Reports Weakness; Denies CVA, TIA, Headaches, Syncope or Seizures
Vascular: Reports No Symptoms
Physical Exam
Vital Signs
Temp 97.8 F 02/20/24 11:13
Temp route: Oral 02/20/24 11:13
Pulse 96 02/20/24 08:21
Rhythm: Normal sinus rhythm 02/19/24 08:00
Resp Rate 20 02/20/24 11:13
Blood pressure 124/84 02/20/24 08:21
Blood pressure extremity used: Left upper arm 02/20/24 11:13
Position: Lying 02/20/24 11:13
MAP (cuff-Finesse Monitor) 86 02/20/24 03:38
SaO2 100 02/20/24 11:13
Oxygen Mode of Delivery Room air 02/20/24 11:13
Can the patient verbally communicate their pain? Yes 02/20/24 10:08
Pain scale ratin 02/20/24 10:08
Actual Weight 195 lb 8.8 oz 02/20/24 03:42
Body Mass Index (BMI) 30.7 02/20/24 03:42
Labs
02/20/24 04:13
02/20/24 04:13
APTT 100.2 Sec (23.4-35.0) H 02/19/24 11:16
Hemoglobin A1c 4.6 % (4.0-5.6) 02/18/24 03:14
Troponin I 17.600 ng/ml H* 02/18/24 03:14
Vpe-U-Atrjxxyidqs Pept 8800 pg/ml 02/17/24 10:37
Diagnostic Studies
Cardiac catheterization: 02/19/24 Gordon
LM: 85% mid-distal stenosis extending into ostial LAD
LAD: 50-60% ostial, 80% prox-mid, 85% distal
LCx: 30-40% prox
OM1: 60-70%
RCA: moderate to severe plaque in rPDA which is very small in caliber
TTEchocardiogram: 02/17/24 Guru
EF: 47%
Mitral: mild-moderate MR
Aortic: trace AI
Tricuspid: mild TR
Pulmonic: trace TX
LVSD: 38
LVDD: 51
PAP: 38
Exam
General: Well Developed, Well Nourished and No Apparent Distress
HEENT: Normocephalic, Moist Mucous Membranes, Atraumatic, PERRLA and EOMI
Neck: Trachea Midline; Negative Carotid Bruit
Respiratory: Clear; Negative Wheezes, Crackles, Rhonchi or Accessory Muscle Use
Cardiac: S1/S2 and Regular Rhythm; Negative Murmur, Rub or Gallop
GI: Soft, Non Tender, Non Distended and Normal Bowel Sounds
Rectal: Deferred by Provider
Skin: Warm and Dry; Negative Rash
Neuro: AO x 3, No Motor Deficits and CN X-XII Intact
Extremities: Lower Level Edema (R +3 > L +2); Negative Upper Level Edema, Upper Level Cyanosis, Lower Level Cyanosis, Upper Level Clubbing or Lower Level Clubbing
Psych: Calm
Assessment / Plan
-
Assessment:
68-year-old male with PMH of:
Follicular lymphoma of the right groin
-Diagnosed 10/2022 and treated with radiation (10/2022), and chemotherapy via Revlimid 01/15/24-02/04/[address] Rakan Ackerman
HTN, HLD
Gout
Chronic lymphedema of the right lower extremity
Acute on chronic anemia
Now found to have newly diagnosed:
Acute systolic CHF with BNP of 8800
NSTEMI with peak troponin of 20.5
Abnormal EKG with lateral and ST and T wave changes
Acute on chronic anemia H & H 9.3/27.2
Plan:
Patient's case will be discussed with attending physician Dr. Ella MD.
Cardiothoracic preop workup will be initiated.
We will also obtain a CT of the chest with IV contrast to evaluate the patient's mediastinal lymph nodes.
STS risk stratification will be calculated once all preoperative data is collected.
Tentatively the patient will be planned for surgical intervention Saturday02/20/2024 assuming preoperative workup is normal and not prohibitive.
2 units of packed red blood cells were asked to be put on hold by attending physician.
Patient will also be given an additional dose of diuresis via Lasix 40 mg IV x 1 this evening at 170.0
--- NOTE | 2024-02-20 12:25 | W.PN.UPDATE ---
Update Note
Progress Note Update
Pt seen and examined, present
Very pleasant 68 y/o active male, with complicated comorbidity
Presented with total body bone aches secondary to his lymphoma diagnosis and treatment.
+tops, edema
No cp
Cath with left main cad, complex multivessel left sided disease, nl rca
Echo with ef 47%, mod MR, mild TR
2022 diagnosis of Non Hodgkins lymphoma after finding groin lymph nodes and leg swelling.
Following treatment has had Radiologic findings of progressive/recurrent disease
Further treatment done, and more planned
I agree best therapy for finding of high grade asymptomatic left main cad is cabg sooner than later.
Very long disucssion with pt and his regarding findings, issues, as well as risks, complications, benefits and alternatives to cabg.
Discussed in detail with Dr Ackerman
Routine pre surgical tests today with hopes to schedule surgery for tomorrow.
Pt and his appear to understand and wish to proceed.
--- NOTE | 2024-02-20 13:42 | CM ---
Reviewed chart. Met with Mr. Soto to review discharge plans. He states prior to admission he resides with his significant other in a two story home with six steps to enter. He states he has a full flight of steps to get to bedroom/full bathroom.
He states he does have a bedroom and full bathroom on the first floor. He states prior to admission he was independent with ambulation and adls. He states he does not have any DME in the home. He states he has a prescription plan. He states his
significant other will be home to assist in his care if needed. Medical work-up in progress. The discharge plan is to return home with his significant other and a home visit by the Cardiothoracic Transitional Care Nurse when medically stable.
We reviewed pre-op and post-op routines. We briefly reviewed the shower instructions.Gave him the Cardiothoracic Surgery Educational Booklet. We reviewed restrictions including sternal precautions and driving restrictions. We also discussed a
home visit by the Cardiothoracic Transitional Care Nurse. He is agreeable to a home visit. The plan is for CABG on 02/21/24.
--- NOTE | 2024-02-20 13:50 | PTCARENOTE ---
Rec'd pt this AM after L heart cath yesterday. Contacted provider to start heparin after findings of multi vessel disease and no stents placed yesterday. Heparin started at 1000 units per hour per provider order. Provider talked to pt this AM
about CABG procedure and pt was receptive to information about procedure. 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 Explained importance of heparin therapy and patient was receptive to teaching. Pt had complaints of R lower extremity
pain and Roxicodone was given per provider order. Pt eating lunch at bedside with and call villafuerte in reach. Plan of care ongoing.
--- NOTE | 2024-02-20 14:35 | W.PN.UPDATE ---
Update Note
Progress Note Update
Procedure Type:�Isolated CABG
PERIOPERATIVE OUTCOME ESTIMATE %
Operative Mortality 2.27%
Morbidity & Mortality 11.2%
Stroke 0.893%
Renal Failure 3.44%
Reoperation 3.01%
Prolonged Ventilation 5.42%
Deep Sternal Wound Infection 0.226%
Long Hospital Stay (>14 days) 7.76%
Short Hospital Stay (<6 days)* 31%
Clinical Summary
Planned Surgery: Isolated CABG, Urgent, First cardiovascular surgery
Demographics: 68 year old, White, male, 88.7kg, 170cm, BMI: 30.7 kg/m�
Lab Values: Creatinine: 1.2 mg/dL, Hematocrit: 27.2%, WBC Count: 3.6 10�/�L, Platelet Count: 144550 cells/�L
Substance Abuse: Never smoker, Alcohol use: <=1 drink/week
Risk Factors / Comorbidities: Cancer <=5 yrs, Hypertension, Immunocompromised
Cardiac Status: Acute and chronic heart failure, NYHA Class II, Ejection Fraction = 47%
Coronary Artery Disease: 3 vessels diseased, Left Main Stenosis >=50%, Proximal LAD Stenosis >=70%, Non-ST Elevation ND, ND: 1 to 7 Days
Valve Disease: Trivial/Trace AR, Moderate MR, Mild TR
--- NOTE | 2024-02-20 15:19 | W.PN.HOSP.TC ---
Today's Communication/Plan
-
CTS evaluation
continue heparin drip
continue other care
Assessment / Plan
Assessment / Plan
1. ACS/NSTEMI
-Patient denies of having any typical chest pain/nausea/diaphoresis episode
-No previous h/o of CAD
-EKG reviewed from 02/[address] depression in V3-4-5 leads
-Trop 15.8>17.3>left hospital>19> 20.4 peaked
-cardiology evaluated and started on heparin drip
-got asa 325mg in ER, continue 81mg/d moving forward
-TTE showing EF 47%, stage II diastolic dysfunction, mod MR.
-LHC showing multivessel CAD and CTS involved for bypass evaluation.
2. Grade II follicular lymphoma
-have undergone bendamustine/Rituxan therapy in past with remission achieved in
-In apr this year PET scan showing recurrence with main involvement for right thigh/retroperitoneal LN
-patient finished course of lenalidomide on 02/03 , does not want repeat course due to diffuse body pain.
3. bilateral Lower ext swelling
-right leg swelling possibly explained by lymphoma of inguinal lymph node
-RLE venous Doppler for clot.
-Left inguinal LN lymphoma also noted on PET scan - not palpable on exam
-Started on IV lasix 40mg/d
4. Elevated AST
-minimal, trending down
-will need statin therapy and will need to be held if LFT up-trends
-monitor
5. Chronic normocytic anemia
-hematology input reviewed
-Hbg remains stable. monitor.
Essential HTN
HLD
Medical marijuana use
Gout
DVTPPX - Heparin drip
Full code
Anticipated Discharge: > 48 hours
Subjective/Interval History
-
Date of Service: February 20, 2024
no complains overnight
Objective Data
-
Labs:
Laboratory Results
02/20/24 02/20/24 02/20/24
04:13 11:14 16:30
WBC 3.6 L
Hgb 9.3 L
Hct 27.2 L
Plt Count 195
PT Pending
INR Pending
APTT Pending
Sodium 138
Potassium 3.9
Chloride 103
Carbon Dioxide 27
BUN 20
Creatinine 1.2
Glucose 94
Calcium 9.1
Total Bilirubin 1.3
AST 30
ALT 16
Alkaline Phosphatase 59
Vital Signs:
Vital Signs
Temp Pulse Resp BP Pulse Ox
98.7 F 96 20 124/84 100
02/20/24 15:16 02/20/24 08:21 02/20/24 15:16 02/20/24 08:21 02/20/24 15:16
I&O
02/19/24 02/20/24 02/21/24
06:59 06:59 06:59
Intake Total 240 / 240 210 / 210 240 / 240
Balance 240 / 240 210 / 210 240 / 240
Review of Systems
-
Respiratory: Reports No Symptoms
Cardiac: Reports No Symptoms
Abdomen/GI: Reports No Symptoms
Physical Exam
-
General: No Apparent Distress and Comfortable
HEENT: Negative Oxygen
Respiratory: Clear to Auscultation
Cardiac: Regular Rhythm and S1/S2; Negative Murmur or Rub
GI: Soft, Nontender and Nondistended
Musculoskeletal: No Edema
Neuro: Awake, Alert, Oriented, No Motor Deficits and Nonfocal/Grossly Intact
Psych: Calm
[2024-02-20 16:56] LABS: INR 1.32; PT 16.4 Sec (11.4-14.6)
[2024-02-20 16:57] LABS: APTT 64.8 Sec (23.4-35.0)
[2024-02-20] MEDS: CLARITIN 10 MG PO (17:27)
[2024-02-20] MEDS: KCL 20 MEQ PO (17:27)
[2024-02-20] MEDS: ZYLOPRIM 300 MG PO (17:27)
[2024-02-20] MEDS: LIPITOR 40 MG PO (17:28)
[2024-02-20] MEDS: FERRLECIT 110 MG IV (17:42)
--- NOTE | 2024-02-20 21:21 | PTCARENOTE ---
Addendum entered by Regina Ahumada RN 02/20/24 21:25:
Pt. aware of CABG to be done 02/21/24. Pt. verbalizes understanding of procedure and prep to be done tonight (02/19).
Original Note:
Pt. received at change of shift. Pt. seen and assessed at bedside. Pt. AOx3. RN verified heparin gtt. VS WNL. Pt. has no complaints at this time. Awaiting PTT at 2300. Continuing to monitor pt at this time.
[2024-02-20 23:45] LABS: APTT 66.7 Sec (23.4-35.0)
[2024-02-21] VITALS (8 sets, daily range): BP systolic 93–113; BP diastolic 59–75; BMI 29.7
[2024-02-21] MEDS: ROXICODONE 10 MG PO ×2 (00:29→17:35)
[2024-02-21] MEDS: PROTONIX 40 MG PO (05:53)
[2024-02-21] MEDS: MAGNESIUM OXIDE 500 MG PO (05:53)
[2024-02-21] MEDS: BACTROBAN 2% OINTMENT 1 APPLIC NASAL ×2 (05:53→20:52)
[2024-02-21] MEDS: LOPRESSOR 12.5 MG PO (05:53)
--- NOTE | 2024-02-21 07:28 | W.CVOR.SURPR ---
CVOR Surgeon Immed Pre Op
-
I have examined this patient prior to performance of the scheduled procedure.
The patient's condition is unchanged from the time of the dictated/written History and
Physical and the patient is able to undergo the scheduled procedure.
[2024-02-21 08:18] LABS: ACT+ - POC 109 Seconds (82-134)
[2024-02-21 08:26] LABS: Urine Albumin Negative (Neg - Trace); Urine Bilirubin Negative (Negative); Urine Character Clear (Clear); Urine Color Yellow; Urine Glucose Negative (Negative); Urine Ketone Trace (Negative); Urine Leukocyte Negative (Negative); Urine Nitrite Negative (Negative); Urine Occult Blood Negative (Negative); Urine Specific Gravity 1.015 (<1.030); Urine Urobilinogen Negative (Neg - 1+)
--- NOTE | 2024-02-21 08:51 | CM ---
Reviewed chart. Mr. Soto is in the operating room today. Prior to admission he resides with his significant other in a two story home with six steps to enter. He has a bedroom/full bathroom are each level. He normally goes up a full flight of
steps to get to bedroom/full bathroom. Prior to admission he was independent with ambulation and adls. He does not have any DME. He has a prescription plan. His significant other will be home to assist in his care if needed. Medical work-up in
progress. The discharge plan is to return home with his significant other and a home visit by the Cardiothoracic Transitional Care Nurse when medically stable.
[2024-02-21 09:53] LABS: ACT+ - POC 455 Seconds (82-134)
[2024-02-21 10:02] LABS: B.E. - POC 0.7 mmol/L; Glucose - POC 113 mg/dl (65-99); HCO3 - POC 25 mmol/L (21-29); Hematocrit - POC 23 % PCV (42-52); Hemodilution- POC No; Hemoglobin Calculated - POC 7.7; Ionized Calcium - POC 1.16 mmol/L (1.12-1.27); O2 Saturation %Calculated-POC 99.9 5 (92-96); PCO2 - POC 35 mmHg (35-45); PO2 - POC 243 mmHg (80-100); Potassium - POC 3.3 mmol/L (3.6-5.0); Sodium - POC 137 mmol/L (135-145); pH - POC 7.46 (7.35-7.45)
[2024-02-21 10:05] LABS: ACT+ - POC 471 Seconds (82-134)
--- NOTE | 2024-02-21 10:07 | CON.INTV ---
Consultation
Consultation Request
Date/Time Consultation Requested: 02/21/2024-11:30 AM
Date/Time Consultation Performed: 02/21/2024-12 noon
Requesting Provider: Cardiovascular surgery
Performing Provider: Dr. Wayne
Reason for Consultation: Postop critical care management
Medical History
-
Chief Complaint: CAD
History of Present Illness:
68-year-old male with history of hypertension, hyperlipidemia, chronic anemia and follicular lymphoma of the right groin presented with severe diffuse bone pain from follicular lymphoma and chemotherapy and noted to have abnormal EKG subsequently
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 Patient seen postoperatively on the ventilator sedated and review of systems
was unobtainable. Operative records, pressors, hemodynamics, chest tubes reviewed.
Past Medical History
Past Medical History: None (Hypertension. Hyperlipidemia. Chronic anemia. Follicular lymphoma right groin followed by Dr. Ackerman-Bendamustine/Rituxan/lenalidomide. Gout.)
Social History
Tobacco: Non-smoker
Alcohol: None
Drug: None
Personal:
Living: With Family
Occupational Exposures: No known asbestos exposure
Environmental Exposures: No known tuberculosis exposure
Family History
Family History: Reviewed & Not Pertinent
Allergies / Home Medications
Allergies
Allergy/AdvReac Type Severity Reaction Status Date / Time
yellow fever vaccine live Allergy Anaphylaxis Verified 02/17/24 09:48
Home Medications
�Medication �Instructions �Recorded �Confirmed �Last Taken �Type
atorvastatin 10 mg tablet 10 mg PO QPM Hypercholesterolemia 11/08/22 02/17/24 02/16/24 History
benazepril 40 mg tablet 40 mg PO QPM Blood pressure 11/08/22 02/17/24 02/16/24 History
terazosin 2 mg capsule 4 mg PO QPM Blood pressure 11/08/22 02/17/24 02/16/24 History
Medical Marijuana 2 gummy PO DAILYPRN PRN mild 11/18/23 02/17/24 11/18/23 16:30 History
pains/anxiety 2 gummies per
patien
acyclovir 400 mg tablet 400 mg PO BID Infection 11/18/23 02/17/24 02/16/24 History
allopurinol 300 mg tablet 300 mg PO QPM Gout 11/18/23 02/17/24 02/16/24 History
acetaminophen 650 mg 1,300 mg PO [id number] PRN mild pain 02/16/24 02/17/24 Unknown History
tablet,extended release (Tylenol 8
Hour)
docusate sodium 100 mg capsule 100 mg PO BID Constipation 02/16/24 02/17/24 02/16/24 History
(Colace)
loratadine 10 mg tablet (Claritin) 10 mg PO DAILY@1500 chemo 02/16/24 02/17/24 02/16/24 History
treatment side efec
ondansetron HCl 8 mg tablet 8 mg PO [id number] PRN nausea 02/16/24 02/17/24 Unknown History
oxycodone 10 mg tablet 10 mg PO Q6HPRN PRN severe pain 02/16/24 02/17/24 02/17/24 History
Review of Systems
-
Unable to Obtain full review of systems at this time due to: Other (Per HPI)
Vitals / Labs / Diagnostic Testing
Vital Signs
Temp Pulse Resp BP Pulse Ox
98.3 F 64 18 113/70 99
02/21/24 03:20 02/21/24 05:53 02/21/24 03:20 02/21/24 05:53 02/21/24 03:20
Lab Data
02/20/24 04:13
02/20/24 04:13
Laboratory Results
02/20/24 02/20/24 02/20/24
16:08 16:08 16:08
PT 16.4 H Cancelled
INR 1.32 Cancelled
APTT 64.8 H
02/20/24 02/21/24
23:24 05:44
PT
INR
APTT 66.7 H 83.0 H
Diagnostic Testing:
Physical Exam
-
Exam:
Well-nourished and well-developed in no apparent distress
HEENT-atraumatic, normocephalic, oral tracheal intubation
Heart-regular rate and rhythm-no murmurs, rubs or gallops
Chest-clear to auscultation, no wheezes, crackles, median sternotomy bandage is not removed
Abdomen soft nondistended
Extremities-no cyanosis, clubbing, edema and good peripheral pulses
Integument-intact, no rashes, lesions or ecchymosis
Neurologically not alert, not oriented, not moving any of his extremities sedated on a ventilator
Assessment
-
68-year-old male with history of hypertension, hyperlipidemia, chronic anemia and follicular lymphoma of the right groin presented with severe diffuse bone pain from follicular lymphoma and chemotherapy and noted to have abnormal EKG subsequently
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
ACS/NSTEMI
Status post cardiac cath-multivessel CAD
Status post CABG x4 ESCALERA to distal LAD, NELLY�diagonal/OM/OM, on pump-Dr. Jaramillo 02/21/2024
Nifrnd-kobujduhyo-frakisytog 9.8
Leukopenia
Elevated LFTs
Conditions present prior to admission:
Hypertension.
Hyperlipidemia.
Chronic anemia.
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 Ackerman-Bendamustine/Rituxan/lenalidomide.
Mild focal bronchiectasis noted on CT-right basilar and left upper lobe
Gout.
Plan
Ventilator settings reviewed
FiO2 will be weaned
Minute ventilation will be adjusted
Arterial blood gases will be monitored
Spontaneous breathing trial will be attempted with hopeful extubation after anesthesia/sedation wear off
Pulmonary artery catheter parameters will be followed
Pressors/antihypertensive/inotropes/diuretics will be provided as needed
Monitor chest tube output
Monitor hemoglobin
Monitor platelet count and coags
Transfuse blood product if needed
CT surgery following chest tubes
Monitor blood sugar
Insulin drip per protocol
Follow LFTs
Oncology following-correspondence reviewed-felt anemia was due to Revlimid patient was taking-no objections to dual antiplatelet therapy if necessary
Aspiration precautions
VAP prevention protocol
DVT prophylaxis
Early nutrition
Early mobilization
Critical care statement: A total of 50 minutes of critical care time was provided for this patient today. This includes management of ventilator, spontaneous breathing trial, arterial blood gases, pressors, of unstable vital signs, evaluation of the
patient at bedside, reviewing the patient's pertinent medical records including radiographs, microbiology, laboratory evaluations, and discussion with primary team and critical care nursing.
Diagnostic data:
Chest x-ray 02/16/2024-CHF
PET scan 12/05/2022-severe malignant lymphadenopathy involving right inguinal, right-sided pelvic and right retroperitoneal lymph nodes
PET scan 06/12/2023-diffuse chemotherapeutic response, no suspicious FDG avid lesions with residual small amount of minimally FDG avid soft tissue right internal iliac/obturator with SUV max 1.7 previously 8.9
PET scan/10/19-new extensive lymphoma right retroperitoneal and anteromedial proximal right thigh, new malignant left inguinal mediastinal and left supraclavicular lymph nodes
CT chest 02/20/2024-extensive coronary artery calcifications, enlarged periaortic lymph node measuring 2.2 cm, numerous hepatic and pancreatic cysts, minimal right basilar bronchiectasis, nodular scarring within left upper lobe associated with focal
bronchiectasis, no new suspicious pulmonary nodules
Lower extremity ultrasound 02/17/2024-no evidence for right lower extremity DVT
Echocardiogram 02/17/2024-EF 47%, stage II diastolic dysfunction, mid and distal septal, mid anteroseptal and anterior hypokinesis
Cardiac catheterization 02/15/2024-significant multivessel CAD involving mid to distal left main and significantly elevated LVEDP at 33
Data Reviewed
-
EKG: Report reviewed by me
Radiology: Report reviewed by me
CT Scan: Report reviewed by me
Medical Tests (Nuc Med, Echo etc): Report reviewed by me
Labs: Labs reviewed by me
Old Records: Reviewed
Critical Care Time (in minutes): 50
[2024-02-21 10:30] LABS: B.E. - POC -2.3 mmol/L; Glucose - POC 134 mg/dl (65-99); HCO3 - POC 22 mmol/L (21-29); Hematocrit - POC 19 % PCV (42-52); Hemodilution- POC No; Hemoglobin Calculated - POC 6.5; Ionized Calcium - POC 1.15 mmol/L (1.12-1.27); O2 Saturation %Calculated-POC 99.8 5 (92-96); PCO2 - POC 34 mmHg (35-45); PO2 - POC 222 mmHg (80-100); POC Comment PRE; Potassium - POC 3.5 mmol/L (3.6-5.0); Sodium - POC 135 mmol/L (135-145); pH - POC 7.42 (7.35-7.45)
[2024-02-21 10:41] LABS: ACT+ - POC 517 Seconds (82-134)
--- NOTE | 2024-02-21 10:56 | PTCARENOTE ---
Vital signs captured for previous shift via Paddle[employer] monitor.
[2024-02-21 11:03] LABS: B.E. - POC 2.2 mmol/L; Glucose - POC 151 mg/dl (65-99); HCO3 - POC 26 mmol/L (21-29); Hematocrit - POC 21 % PCV (42-52); Hemodilution- POC Yes; Hemoglobin Calculated - POC 7.3; Ionized Calcium - POC 1.07 mmol/L (1.12-1.27); PCO2 - POC 34 mmHg (35-45); PO2 - POC 394 mmHg (80-100); POC Comment CPB; Sodium - POC 138 mmol/L (135-145); pH - POC 7.48 (7.35-7.45)
[2024-02-21 11:04] LABS: ACT+ - POC 539 Seconds (82-134)
[2024-02-21 11:50] LABS: B.E. - POC 1.3 mmol/L; Glucose - POC 142 mg/dl (65-99); HCO3 - POC 26 mmol/L (21-29); Hematocrit - POC 25 % PCV (42-52); Hemodilution- POC Yes; Hemoglobin Calculated - POC 8.6; Ionized Calcium - POC 1.12 mmol/L (1.12-1.27); O2 Saturation %Calculated-POC 99.9 5 (92-96); PCO2 - POC 39 mmHg (35-45); PO2 - POC 253 mmHg (80-100); POC Comment CPB; Potassium - POC 3.4 mmol/L (3.6-5.0); Sodium - POC 139 mmol/L (135-145); pH - POC 7.43 (7.35-7.45)
[2024-02-21 11:53] LABS: ACT+ - POC 112 Seconds (82-134)
[2024-02-21] MEDS: ZOVIRAX PO (12:08)
[2024-02-21] MEDS: LASIX IV (12:09)
[2024-02-21] MEDS: LOW STRENGTH ASPIRIN PO (12:09)
[2024-02-21] MEDS: TOPROL XL PO (12:09)
[2024-02-21] MEDS: COLACE PO (12:09)
--- NOTE | 2024-02-21 12:16 | W.PN.CT.SURG ---
CT Surgery Operative Note
-
Pre-op Diagnosis: left main cad
nstemi
lymphoma
Post-op Diagnosis: Same
Procedure: Cabg x 4
Chavira- distal lad
tico - diag/om/om
On pump
RSF
Primary Surgeon: Ella
Assisting Surgeons: Rosendo
Specimen: None
Cultures: None
Complications / Blood Loss: None
Findings: No DILLON secondary to poor dentition with multiple loose teeth
good conduits
diffuse cad
improved ecg post bypass
no obvious anterior medistinal lymphadenopathy to biopsy
[2024-02-21 12:17] LABS: B.E. - POC -0.6 mmol/L; Glucose - POC 123 mg/dl (65-99); HCO3 - POC 24 mmol/L (21-29); Hematocrit - POC 31 % PCV (42-52); Hemodilution- POC Yes; Hemoglobin Calculated - POC 10.4; Ionized Calcium - POC 1.37 mmol/L (1.12-1.27); O2 Saturation %Calculated-POC 96.3 5 (92-96); PCO2 - POC 37 mmHg (35-45); PO2 - POC 83 mmHg (80-100); POC Comment POST; Potassium - POC 3.6 mmol/L (3.6-5.0); Sodium - POC 139 mmol/L (135-145); pH - POC 7.41 (7.35-7.45)
[2024-02-21] MEDS: NEURONTIN PO (12:23)
[2024-02-21 12:51] LABS: Glucose - Point of Care 123 mg/dl (70-99)
[2024-02-21 12:52] LABS: B.E. 0.4 mmol/L; HCO3 24.5 mmol/L (21-28); Ionized Calcium 1.22 mMOL/L (1.15-1.33); PCO2 36 mmHg (35-48); PO2 181 mmHg (83-108); Potassium 3.6 mMOL/L (3.5-5.1); Sodium 138 mMOL/L (136-145); pH 7.44 (7.35-7.45)
[2024-02-21] MEDS: NSS 500 IV (12:56)
[2024-02-21] MEDS: ANCEF 10 IV ×2 (12:56)
[2024-02-21 13:00] LABS: Glucose - Point of Care 114 mg/dl (70-99)
[2024-02-21 13:02] LABS: INR 1.85; PT 21.2 Sec (11.4-14.6)
[2024-02-21 13:03] LABS: APTT 37.6 Sec (23.4-35.0)
[2024-02-21 13:08] LABS: Hematocrit 22.6 % (39.0-52.0); Hemoglobin 8.1 g/dL (13.0-18.0); Platelet Count 157 10^3/uL (130-400)
[2024-02-21 13:09] LABS: Blood Urea Nitrogen 18 mg/dl (9-20); Estimated Creatinine Clearance 58 ml/min; Glucose 109 mg/dl (70-99); Magnesium 2.2 mg/dl (1.6-2.3)
[2024-02-21] MEDS: DILAUDID 0.5 MG IV ×2 (13:10→19:02)
[2024-02-21] MEDS: KCL 50 IV ×2 (13:11→14:11)
[2024-02-21] MEDS: TYLENOL PO (13:18)
--- NOTE | 2024-02-21 13:40 | W.PN.CARDCBS ---
Addendum entered and electronically signed by Emile Mercedes DO 02/21/24 14:08:
I saw and examined the patient.
The [employer] Resource [employer]'s note was reviewed and I agree with the note.
Comment:
Patient seen and examined postsurgery. Patient intubated/sedated on mechanical ventilation. Remains on levophed. Chest tubes in place. temp wires capped.
GEN: No distress, intubated, sedated
HEENT: supple, mmm
LUNGS: CTA B/L, no wheezes/rales
CV: Reg, S1/S2, no murmur, + rub
EXT: No cyanosis, clubbing, edema
NEURO: sedated
SKIN: Warm, pink, dry. No rash. Sternotomy dressing c/d/i. CTs in place, epi wires in place.
Tele SB/SR
EKG no significant change from pre-procedure
A/P as below
Routine post-operative care
Monitor tele, EKGs
Resume GDMT when able
Monitor Hbg
Original Note:
Today's Communication / Plan
-
continue post op care
follow EKG
follow hgb
Impression / Plan
-
PCP:
Storage Management Consultant: none prior to admission, Initial consult Dr. Garvey
Impression
Presented 02/16/2024 with all over bone pain
Acute CHF, proBNP 8800
NSTEMI with peak trop 20.5
Abnormal ECG w/ lateral ST and T wave changes on ECG 02/16/2024
MV CAD by cath
s/p CABG x4 ESCALERA to distal LAD, NELLY�diagonal/OM/OM, on pump 02/21/24
acute on chronic anemia
History of follicular lymphoma of right groin, followed by Dr. Ackerman previously on Revlimid 01/15/24 through 02/04/24
History of hypertension
Anemia
Chronic lymphedema of RLE
Echo 02/17/2024: EF 47%, mild septal hypertrophy, mid and distal septal, mid anteroseptal, anterior hypokinesis, stage II diastolic dysfunction, mild to moderate MR, mild TR, PAP 38 mmHg, top normal aortic root size
Plan:
-Patient presented with significant bone pain after recent start Revlimid for lymphoma. He was noted to have significant edema and evidence of heart failure as well as abnormal EKG. Troponin peaked at 20.5 with concern for NSTEMI. Echocardiogram
with EF 47% and anteroseptal hypokinesis. underwent cath 02/18 with MV CAD including L main disease.
-s/p CABG x4 ESCALERA to distal LAD, NELLY�diagonal/OM/OM, on pump 02/21/24
-currently on levo@4, wean as able
-hgb 8.1. receiving 1 U PRBCs
-in SB on review of EKG with stable lateral T wave inversion
-+ rub on exam
-no intraop DILLON completed due to poor dentition
-GDMT of CHF/EF 47% post op as able
-He was being referred as an outpatient to cardio oncology. Concern that recent chemotherapy contributed to current events, defer need for adjustment in chemo regimen to heme-onc
-continue post op care
-d/w nursing
PREADMIT DATA:
-He presented 02/16/24 with complaints of bone pain which he felt was due to chemotherapy, previously on Revlimid 01/15/24 through 02/04/24 and opted not to continue next round. However he was noted to have significant lower extremity edema, scrotal
edema and was found to have evidence of acute heart failure on chest x-ray with elevated proBNP of 5250. He was also noted to have abnormal EKG with lateral ST-T wave changes, elevated troponin of 15.8 and repeat 17.3 concerning for non-ST elevation
[place]. He was provided 1 dose of IV Lasix in emergency department. Patient was admitted however later decided to sign out AMA from emergency department. He now presents back 02/17/2024 for further evaluation and work-up. Patient provided additional
dose of 40 mg IV Lasix and ASA 325 mg in ED on 02/17/2024. EKG shows sinus rhythm with nonspecific ST-T wave abnormality. ProBNP now 8800 and troponin 19.
Progress Note - Storage Management Consultant
Subjective
Date of Service: February 21, 2024
Intubated, sedated
Objective
Labs:
02/21/24 12:38
Labs
Hgb 8.1 g/dL (13.0-18.0) L 02/21/24 12:38
Hct 22.6 % (39.0-52.0) L 02/21/24 12:38
Plt Count 157 10^3/uL (130-400) 02/21/24 12:38
PT 21.2 Sec (11.4-14.6) H 02/21/24 12:38
INR 1.85 02/21/24 12:38
APTT 37.6 Sec (23.4-35.0) H 02/21/24 12:38
Sodium 138 mmol/L (135-145) 02/20/24 04:13
Potassium 3.9 mmol/L (3.5-5.1) 02/20/24 04:13
BUN 18 mg/dl (9-20) 02/21/24 12:38
Creatinine 1.1 mg/dL (0.7-1.3) 02/21/24 12:38
Glucose 109 mg/dl (70-99) H 02/21/24 12:38
Vital Signs and I&O:
Vital Signs
Temp Pulse Resp BP Pulse Ox
97 F 61 14 112/75 100
02/21/24 13:00 02/21/24 13:06 02/21/24 13:00 02/21/24 13:00 02/21/24 13:06
Vital Signs
Temp Pulse Resp BP Pulse Ox
97 F 61 14 112/75 100
02/21/24 13:00 02/21/24 13:06 02/21/24 13:00 02/21/24 13:00 02/21/24 13:06
Intake & Output
02/19/24 02/20/24 02/21/24 02/22/24
07:59 07:59 07:59 07:59
Intake Total 240 / 300 210 / 210 390 / 390 44.4 / 44.4
Output Total 235 / 235
Balance 240 / 300 210 / 210 390 / 390 -190.6 / -190.6
Physical Exam
Physical Exam
GEN: No distress, intubated, sedated
HEENT: supple, mmm
LUNGS: CTA B/L, no wheezes/rales
CV: Reg, S1/S2, no murmur, + rub
EXT: No cyanosis, clubbing, edema
NEURO: sedated
SKIN: Warm, pink, dry. No rash. Sternotomy dressing c/d/i. CTs in place
[2024-02-21] MEDS: OFIRMEV 100 IV (13:47)
[2024-02-21 14:07] LABS: Glucose - Point of Care 102 mg/dl (70-99)
[2024-02-21] MEDS: FERRLECIT IV (14:16)
--- NOTE | 2024-02-21 14:25 | PTCARENOTE ---
Patient received from CVOR s/p CABG x 4. NSR via cm, SaO2 @ 100% on ventilator, titrating FiO2 as able. LIJ Cordis/Slic w/kvo infusing. Epicardial V-wire to pulse generator, off. Mediastinal and R and L pleural chest tubes (Y-connected to separate
pleurevacs), placed to -20cm suction w/no air leaks noted. Sommer catheter to gravity. All procedural sites stable. Labs drawn, EKG performed, pcxr obtained. GUANAKO Norma updated to lab values, 1uprbc ordered. Family to bedside for brief visit.
Dr. Jaramillo to bedside, updated to status. See work list for full assessment, interventions performed, and intravenous infusions and titrations.
[2024-02-21] MEDS: CLARITIN PO (14:31)
--- NOTE | 2024-02-21 14:38 | W.PN.UPDATE ---
Update Note
Progress Note Update
68-year-old male with history of right groin follicular lymphoma diagnosed 10/2022 and treated with radiation (10/2022), and chemotherapy (1 cycle of Revlimid 01/15/24-02/04/24) followed by Dr. Rakan Ackerman. Patient presented to [facility] emergency department on 02/16/2024 with chief complaints of severe, and diffuse bone pain. Patient found to have abnormal EKG with lateral ST and T wave changes with peak troponin 20.5, c/w NSTEMI. Patient decided to leave A. He had an
appointment with his oncologist the following day on 02/17/24. Dr. Ackerman directed the patient back to the emergency department for further admission and workup. Subsequent cardiac catheterization on 02/19/[address] Gordon revealed LM/ Multivessel
CAD.
IV fluids: 1500
U.O.:� 250
UF:� 2100
Blood:� none
Wires:� V-wires
Drips:� Levophed @ 5; Precedex @ 0.5
�
NEURO: sedated on Precedex, pupils +2mm B/L
RESP: #8OT @22cm> 500/60%/14/5. Lungs clear B/L. 1 mediastinal (70cc on arrival) and R/L pleural (45cc on arrival) chest tubes to -20cm suction. Sanguineous drainage
CV: RRR +S1, S2, no S3, +rub, no murmur. Aquacell to median sternotomy. LIJ w/slick; R subclavian port intact
ABD: round, soft, no BS
EXT: no edema, +2/4 DP pulses B/L, no femoral bruit, RLE w/chronic lymphedema and firm to touch; left radial A-line intact
: Sommer with clear yellow urine
�
A/P: POD #0 s/p CABG X 4 (ESCALERA-dLAD; Free NELLY off ESCALERA-diag, OM1 & OM2)
DILLON: not performed d/t loose teeth
- wean and extubate
- wean Levophed
# CAD
- will need ASA/Plavix, high intensity statin and beta marc
�
# acute surgical blood loss on chronic anemia-expected
- preop Hb 9.3
- trend CBC
# Follicular lymphoma right groin
- continue acyclovir and allopurinol
# BPH
- resume Terazosin as BP permits
�
[2024-02-21 14:58] LABS: B.E. -1.6 mmol/L; HCO3 22.9 mmol/L (21-28); O2 Saturation % 99.7 % (94-98); PCO2 37 mmHg (35-48); PO2 172 mmHg (83-108)
[2024-02-21 15:03] LABS: Glucose - Point of Care 103 mg/dl (70-99)
--- NOTE | 2024-02-21 15:26 | PTCARENOTE ---
Patient displayed overbreathing ventilator, CPAP wean initiated. No apnea noted, patient pulling good TV. ABG obtained, wnl, conveyed to GUANAKO. Patient extubated to 6lnc w/out incident, SaO2 100%.
[2024-02-21] MEDS: TORADOL 15 MG IV (15:36)
[2024-02-21] MEDS: NEURONTIN 100 MG PO ×2 (15:59→21:50)
[2024-02-21 16:03] LABS: Glucose - Point of Care 93 mg/dl (70-99)
[2024-02-21] MEDS: ZOFRAN 4 MG IV (16:47)
[2024-02-21 17:01] LABS: Glucose - Point of Care 107 mg/dl (70-99)
[2024-02-21 17:23] LABS: Hematocrit 26.9 % (39.0-52.0); Hemoglobin 9.6 g/dL (13.0-18.0); Platelet Count 157 10^3/uL (130-400)
[2024-02-21] MEDS: LOW STRENGTH ASPIRIN 81 MG PO (17:34)
[2024-02-21] MEDS: LIPITOR 40 MG PO (17:35)
[2024-02-21] MEDS: ANCEF 5 IV (18:59)
[2024-02-21 19:04] LABS: Glucose - Point of Care 94 mg/dl (70-99)
--- NOTE | 2024-02-21 19:35 | PTCARENOTE ---
Report received from Sharmila CASTILLO at bedside. Pt c/o 05/07 sternal pain. Dilaudid 0.5 mg IV given for increased pain. Pt drowsy, yet awake, alert, oriented x 4. Speech clear. Equal strength x 4 extremities. O2 sats 100% on 2L/NC. CDB encouraged. BBS
present. Decreased to B bases. Audible heart tones. + pericardial rub present. Pt in SR with occasional PACs. CTs x 3 to -20 cm suction. See flowsheets. Sternal aquacel dry and intact. V wire attached to temporary PM. PM off. L radial arterial line
with pulsatile waveform. LIJ slick catheter intact and monitoring CVP. All lines levelled and zeroed per protocol. Palpable +2 pulses to B radial arteries. DP and PT pulses found via doppler to BLE. Hx of RLE lymphedema. RLE slightly > than LLE.
Belly soft, nontender. Hypoactive bowel sounds x 4. Sommer to gravity drain, clear, yellow urine. Hourly UO and CT outputs recorded. Glycemic protocol followed. Levophed gtt at 3 mcg/min. Will continue to monitor pt.
[2024-02-21] MEDS: SENOKOT-S 1 TABLET PO (20:22)
[2024-02-21] MEDS: ZOVIRAX 400 MG PO (20:22)
[2024-02-21 21:18] LABS: Glucose - Point of Care 92 mg/dl (70-99)
[2024-02-21] MEDS: TYLENOL 1000 MG PO (21:50)
--- NOTE | 2024-02-21 22:00 | PTCARENOTE ---
Levophed gtt decreased to 2 mcg/min for MAP 81, SBP 125. Blood drawn to check ionized CA. Discussed with PA. Result 1.19.
[2024-02-21] MEDS: LEVOPHED 250 IV (23:07)
[2024-02-21 23:19] LABS: Glucose - Point of Care 104 mg/dl (70-99)
[2024-02-21 23:56] LABS: Glucose - Point of Care 107 mg/dl (70-99)
[2024-02-22] VITALS (29 sets, daily range): BP systolic 89–116; BP diastolic 54–78; PULSE 69; O2SAT 96–97; BMI 29.9
[2024-02-22 00:02] LABS: Ionized Calcium 1.19 mMOL/L (1.15-1.33)
[2024-02-22] MEDS: ROXICODONE 10 MG PO ×4 (00:26→19:42)
[2024-02-22 00:59] LABS: Glucose - Point of Care 98 mg/dl (70-99)
--- NOTE | 2024-02-22 01:46 | PTCARENOTE ---
Levophed gtt increased to 2 mcg/min at 0138 for MAP 63. Audible heart tones. + pericardial rub. Pt sleeping after receiving Oxycodone 10 mg for 9/[address] output and UO monitored q 1 hour.Sats 97% on 2L/NC.
[2024-02-22 02:26] LABS: Glucose - Point of Care 104 mg/dl (70-99)
[2024-02-22 03:38] LABS: Glucose - Point of Care 107 mg/dl (70-99)
[2024-02-22] MEDS: ANCEF 5 IV ×2 (03:39→11:55)
--- NOTE | 2024-02-22 03:53 | W.PN.CT ---
Today's Communication / Plan
-
-pod #1
-no issues overnight
-drips: Insulin,Levo 4
-wean off Levo and deline
-CT output: med 45/180 and 2 pleur 105/270 in 12/24 hrs
-d/c Sommer
-d/c insulin
-current meds (ASA, Plavix, Lipitor, Lopressor, Amio, Protonix, Acyclovir)
-encourage IS, OOB
Assessment / Plan
-
- mv-CAD/NSTEMI- s/p on pump Cabg x4 (Chavira-distal Lad, Elyse 'y-graft off Chavira' to Diag/Om/Om) on 02/21/[address] Jaramillo, pod #1
- no DILLON secondary to poor dentition with multiple loose teeth
- no obvious anterior mediastinal lymphadenopathy to biopsy
- HTN/HLD
- EF 47%
- CKD 3a (Cr 1.2-1.3 preop)
- R groin follicular lymphoma 10/2022, tx with XRT and chemo
- Chronic lymphedema of RLE
- Acute on chronic anemia
- s/p IR biopsy of R groin, surgical biopsy 11/[address] Giles Amin
- gout
- nonsmoker
- chronic pain - on Roxicodone 10 mg q6h preop
- acute on chronic postop blood loss anemia - s/p 1 pRBC
- acute postop atelectasis
- acute postop hypovolemia with subsequent hypervolemia
Discussed patient care with: Nursing and Care Team
Subjective
Procedure
- s/p on pump Cabg x4 (Chavira-distal Lad, Elyse 'y-graft off Chavira' to Diag/Om/Om) on 02/21/[address] Jaramillo
-
Date of Service: February 21, 2024
Objective Data
-
Lab Results
02/21/24 17:01
02/21/24 12:38
PT 21.2 Sec (11.4-14.6) H 02/21/24 12:38
INR 1.85 02/21/24 12:38
APTT 37.6 Sec (23.4-35.0) H 02/21/24 12:38
Vital Signs
Vital Signs
Temp Pulse Resp BP Pulse Ox
100.2 F 75 15 93/59 97
02/21/24 23:00 02/21/24 22:00 02/21/24 23:00 02/21/24 21:29 02/21/24 22:00
CT Intake/Output/Weight
02/21/24 02/21/24 02/22/24
06:59 18:59 06:59
Intake Total 150 / 390 204.7 / 357.1 152.4 / 357.1
Output Total 625 / 919 294 / 919
Balance 150 / 390 -420.3 / -561.9 -141.6 / -561.9
SaO2: 97
Physical Exam
-
General: Awake
Cardiovascular: Regular rate & rhythm, No Murmurs and Rub
Respiratory: Decreased Breath Sounds
Sternum: Stable
Incision: Clean and Dry
Extremities: No Edema (1+ DP b/l. R leg chronic lymphedema)
Data Reviewed
-
Lab Results: Results Reviewed
Medications: Active Meds Reviewed
Chest X-Ray: Report Reviewed and Image Reviewed
ECG: Report Reviewed and Image Reviewed
[2024-02-22 04:09] LABS: Hematocrit 25.3 % (39.0-52.0); Hemoglobin 8.9 g/dL (13.0-18.0); Mean Corp Hgb Conc. 35.2 g/dL (33.0-37.0); Mean Corpuscular Volume 93.7 fL (80.0-94.0); Mean Platelet Volume 9.9 fL (7.4-10.4); Platelet Count 152 10^3/uL (130-400); White Blood Cell Count 9.8 10^3/uL (4.8-10.8)
[2024-02-22 04:29] LABS: Blood Urea Nitrogen 20 mg/dl (9-20); Calcium 8.7 mg/dl (8.4-10.2); Carbon Dioxide 23 mmol/L (22-30); Chloride 108 mmol/L (98-107); Estimated Creatinine Clearance 54 ml/min; Glucose 94 mg/dl (70-99); Potassium 4.1 mmol/L (3.5-5.1); Sodium 138 mmol/L (135-145); eGFR > 60.00
--- NOTE | 2024-02-22 04:30 | PTCARENOTE ---
BP via A line and cuff 80's/60's. Levo gtt increased to 4 mcg/min. Pt asymptomatic of lower BP. No dizziness, lightheadedness, no diphoresis. Mentating well, talking clearly. Remaining oriented x 4. BP up to 100's/60-70's, MAP 70's, on Levo gtt at 4
mcg/min. ARUN Barros at bedside and aware of VS, gtts. O2 sats remain 97-98% on 2L/NC.
Labs drawn and sent. EKG done and shown to PA.
[2024-02-22 05:21] LABS: Glucose - Point of Care 108 mg/dl (70-99)
[2024-02-22] MEDS: TYLENOL 1000 MG PO ×3 (06:21→23:03)
--- NOTE | 2024-02-22 06:32 | PTCARENOTE ---
Levo gtt remains at 4 mcg/min. BP 100/64 via L radial A-line. Cuff BP on RUE: 99/62. Portable CXR completed this am. Pt with 9/10 pain to sternal incision at 0620. Roxicodone 10 mg and Tylenol 1000 mg given for pain. Pt weighed on bed scale this
am: 86.5 kg. Remains neuro intact. Sats 99% on 2L/NC. In SR, rate 60's.
[2024-02-22 06:41] LABS: Glucose - Point of Care 109 mg/dl (70-99)
--- NOTE | 2024-02-22 07:31 | W.PN.INTV ---
Today's Communication / Plan
Recommendations
Tolerated extubation
Wean FiO2
Begin to deline
Wean pressors
Likely transfer to telemetry-call pulmonary if respiratory issues arise
Assessment
-
68-year-old male with history of hypertension, hyperlipidemia, chronic anemia and follicular lymphoma of the right groin presented with severe diffuse bone pain from follicular lymphoma and chemotherapy and noted to have abnormal EKG subsequently
diagnosed with ACS/non-STEMI underwent cardiac catheterization and subsequent CABG-candy spreader consulted for postoperative ventilator/critical care management 02/21/2024.
ACS/NSTEMI
Status post cardiac cath-multivessel CAD
Status post CABG x4 ESCALERA to distal LAD, NELLY�diagonal/OM/OM, on pump-Dr. Jaramillo 02/21/2024
Cpaeea-eqjenvneur-egfpwtclwa 9.8
Leukopenia
Elevated LFTs
Conditions present prior to admission:
Hypertension.
Hyperlipidemia.
Chronic anemia.
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 Ackerman-Bendamustine/Rituxan/lenalidomide.
Mild focal bronchiectasis noted on CT-right basilar and left upper lobe
Gout.
Plan
Tolerated extubation
Wean FiO2
Encourage incentive spirometry
Increase activity
Aspiration precautions
Pulmonary artery catheter and arterial line will be removed
Pressors have been weaned
Continue to monitor chest tube output
Follow hemoglobin
Continue to follow platelet count and coags
Transfuse blood product as needed
CT surgery following chest tubes as well
Follow blood sugar
Insulin supplementation continues as needed
Follow LFTs
Oncology following-correspondence reviewed-felt anemia was due to Revlimid patient was taking-no objections to dual antiplatelet therapy if necessary
Early nutrition
Early mobilization
DVT prophylaxis
Patient will be transferred to telemetry phase-call pulmonary if respiratory issues arise
Reviewed the patient's pertinent medical records including radiographs, microbiology, laboratory evaluations, and discussion with primary team, and critical care nursing.
Diagnostic data:
Chest x-ray 02/16/2024-CHF
PET scan 12/05/2022-severe malignant lymphadenopathy involving right inguinal, right-sided pelvic and right retroperitoneal lymph nodes
PET scan 06/12/2023-diffuse chemotherapeutic response, no suspicious FDG avid lesions with residual small amount of minimally FDG avid soft tissue right internal iliac/obturator with SUV max 1.7 previously 8.9
PET scan/10/19-new extensive lymphoma right retroperitoneal and anteromedial proximal right thigh, new malignant left inguinal mediastinal and left supraclavicular lymph nodes
CT chest 02/20/2024-extensive coronary artery calcifications, enlarged periaortic lymph node measuring 2.2 cm, numerous hepatic and pancreatic cysts, minimal right basilar bronchiectasis, nodular scarring within left upper lobe associated with focal
bronchiectasis, no new suspicious pulmonary nodules
Lower extremity ultrasound 02/17/2024-no evidence for right lower extremity DVT
Echocardiogram 02/17/2024-EF 47%, stage II diastolic dysfunction, mid and distal septal, mid anteroseptal and anterior hypokinesis
Cardiac catheterization 02/15/2024-significant multivessel CAD involving mid to distal left main and significantly elevated LVEDP at 33
Subjective Dataa
Subjective Data
Date of Service:
Date of Service: February 22, 2024
Chief Complaint: Vertical Borer Follow Up, Pulmonary Follow Up and Vent Management Follow Up
Subjective:
Patient tolerated extubation, pain controlled, chest tubes not losing significantly, no complaints of shortness of breath at rest, abdominal pain
Review of Systems
General: Other (Per HPI)
Objective Data
Data Reviewed
Vital Signs / I&O / Oxygen:
Vital Signs
Temp Pulse Resp BP Pulse Ox
99.4 F 63 15 97/61 98
02/22/24 06:00 02/22/24 07:00 02/22/24 06:00 02/22/24 07:00 02/22/24 07:00
Intake and Output
02/21/24 02/22/24 02/23/24
06:59 06:59 06:59
Intake Total 390 / 390 575.9 / 575.9
Output Total 1207 / 1207
Balance 390 / 390 -631.1 / -631.1
SaO2 [CPAP] 100
SaO2 [SIMV] 100
SaO2 98
Nasal Cannula flow liters per 2
minute
Physical Exam
General: Respiratory Distress (n) and Comfortable
HEENT: Normocephalic, Anicteric and Moist Mucous Membranes
Cardiovascular: Regular Rhythm
Respiratory: Wheeze (n), Crackles, Rhonchi (n), Non-Labored Respirations, Accessory Resp Muscle Use (n), Stridor (n) and Chest Tube
GI: Soft, Non Distended and Non Tender
Neurology: Awake, Alert and No Motor Deficits
Skin: Warm, Good Color and Cyanosis (n)
Labs/Micro/Reports
Lab Data
02/22/24 03:48
02/22/24 03:48
Laboratory Results
02/21/24 02/21/24
12:38 14:50
PT 21.2 H
INR 1.85
APTT 37.6 H
pH 7.44 7.40
pCO2 36 37
pO2 181 H 172 H
HCO3 24.5 22.9
O2 Delivery Level
[2024-02-22] MEDS: PLAVIX 75 MG PO (07:56)
[2024-02-22] MEDS: LIDOCAINE 4% PATCH 1 PATCH TOPICAL (07:56)
[2024-02-22] MEDS: NEURONTIN 100 MG PO ×3 (07:57→23:03)
[2024-02-22] MEDS: LOW STRENGTH ASPIRIN 81 MG PO (07:57)
[2024-02-22] MEDS: BACTROBAN 2% OINTMENT 1 APPLIC NASAL ×2 (07:57→19:41)
[2024-02-22] MEDS: SENOKOT-S 1 TABLET PO ×2 (07:57→19:40)
[2024-02-22] MEDS: ZOVIRAX 400 MG PO ×2 (07:57→19:40)
[2024-02-22] MEDS: LOPRESSOR PO (07:57)
[2024-02-22] MEDS: MAGNESIUM OXIDE 500 MG PO ×2 (07:57→19:39)
[2024-02-22] MEDS: PROTONIX 40 MG PO (07:57)
--- NOTE | 2024-02-22 08:08 | PTCARENOTE ---
Assumed care of patient from manager rfid RN. AAO x 3. SR on monitor. Epicardial Wire to box but turned off. Lt radial A line transducing. Leveled, recalibrated and flushed. LT IJ slick also recalibrated. 2 L NC 96%. Using IS to 500. Needs
encouragement. Chest tubes x 3 to - 20 cm suction. No air leak or crepitus noted. Abdomen round, hypoactive bowel sounds noted. Denies nausea. Rt leg grossly edematous and firm, however chronic per pt. Pulses palpable. Insulin and Levophed
infusing on hand off. Plan for am discussed.
--- NOTE | 2024-02-22 09:09 | W.PN.CARDCBS ---
Addendum entered and electronically signed by Emile Mercedes DO 02/22/24 09:25:
I saw and examined the patient.
The Rd Lab Technician's note was reviewed and I agree with the note.
Comment:
Patient seen and examined's morning. No acute events overnight. Patient extubated doing well on nasal cannula. Patient notes mild discomfort of chest tube and median sternotomy site. Denies any other complaints at this time. Telemetry
demonstrates sinus rhythm/sinus bradycardia with brief AIVR. Patient remains on Levophed at 1 manage insulin drip. Chest tubes remain in place.
GEN: No distress, awake, alert, oriented x3. on supp O2
HEENT: supple, anicteric, mmm, eomi
LUNGS: CTA anterolaterally, no wheezes
CV: Reg, S1/S2, no murmur, + rub
EXT: No cyanosis, clubbing, edema
NEURO: Gross non-focal
SKIN: Warm, pink, dry. No rash. Sternotomy dressing c/d/i. CTs in place; epi wires in place
Telemetry sinus rhythm/sinus bradycardia, brief AIVR
EKG sinus rhythm improvement in lateral ST changes
A/P as below
Continue routine postoperative care per CT surgery
Wean Levophed and insulin as tolerated
Patient with improving pericardial friction rub, but still present
Monitor on telemetry, replete electrolytes as needed monitor hemoglobin
GDMT resume as tolerated when able per CT surgery
Original Note:
Today's Communication / Plan
-
continue post op care
follow hgb
GDMT of CM/CHF when able post op
Impression / Plan
-
PCP:
Manager Of Manufacturing: none prior to admission, Initial consult Dr. Garvey
Impression
Presented 02/16/2024 with all over bone pain
Acute CHF, proBNP 8800
NSTEMI with peak trop 20.5
Abnormal ECG w/ lateral ST and T wave changes on ECG 02/16/2024
MV CAD by cath
s/p CABG x4 ESCALERA to distal LAD, NELLY�diagonal/OM/OM, on pump 02/21/24
acute on chronic anemia
History of follicular lymphoma of right groin, followed by Dr. Ackerman previously on Revlimid 01/15/24 through 02/04/24
History of hypertension
Anemia
Chronic lymphedema of RLE
Echo 02/17/2024: EF 47%, mild septal hypertrophy, mid and distal septal, mid anteroseptal, anterior hypokinesis, stage II diastolic dysfunction, mild to moderate MR, mild TR, PAP 38 mmHg, top normal aortic root size
Plan:
-Patient presented with significant bone pain after recent start Revlimid for lymphoma. He was noted to have significant edema and evidence of heart failure as well as abnormal EKG. Troponin peaked at 20.5 with concern for NSTEMI. Echocardiogram
with EF 47% and anteroseptal hypokinesis. underwent cath 02/18 with MV CAD including L main disease.
-s/p CABG x4 ESCALERA to distal LAD, NELLY�diagonal/OM/OM, on pump 02/21/24
-looks well
-levo @2, wean as able
-CT x1 removal today
-hgb 8.9 s/p 1 U PRBCs 02/20. on asa, plavix given NSTEMI presentation
-EKG 02/21 SR with improving lateral T wave abnormality
-no intraop DILLON completed due to poor dentition
-GDMT of CHF/EF 47% post op as able
-He was being referred as an outpatient to cardio oncology. Concern that recent chemotherapy contributed to current events, defer need for adjustment in chemo regimen to heme-onc
-continue post op care
-d/w nursing
PREADMIT DATA:
-He presented 02/16/24 with complaints of bone pain which he felt was due to chemotherapy, previously on Revlimid 01/15/24 through 02/04/24 and opted not to continue next round. However he was noted to have significant lower extremity edema, scrotal
edema and was found to have evidence of acute heart failure on chest x-ray with elevated proBNP of 5250. He was also noted to have abnormal EKG with lateral ST-T wave changes, elevated troponin of 15.8 and repeat 17.3 concerning for non-ST elevation
HI. He was provided 1 dose of IV Lasix in emergency department. Patient was admitted however later decided to sign out AMA from emergency department. He now presents back 02/17/2024 for further evaluation and work-up. Patient provided additional
dose of 40 mg IV Lasix and ASA 325 mg in ED on 02/17/2024. EKG shows sinus rhythm with nonspecific ST-T wave abnormality. ProBNP now 8800 and troponin 19.
Progress Note - Manager Of Manufacturing
Subjective
Date of Service: February 22, 2024
Reports pain adequately controlled.
Objective
Labs:
02/22/24 03:48
02/22/24 03:48
Labs
Hgb 8.9 g/dL (13.0-18.0) L 02/22/24 03:48
Hct 25.3 % (39.0-52.0) L 02/22/24 03:48
Plt Count 152 10^3/uL (130-400) 02/22/24 03:48
PT 21.2 Sec (11.4-14.6) H 02/21/24 12:38
INR 1.85 02/21/24 12:38
APTT 37.6 Sec (23.4-35.0) H 02/21/24 12:38
Sodium 138 mmol/L (135-145) 02/22/24 03:48
Potassium 4.1 mmol/L (3.5-5.1) 02/22/24 03:48
BUN 20 mg/dl (9-20) 02/22/24 03:48
Creatinine 1.2 mg/dL (0.7-1.3) 02/22/24 03:48
Glucose 94 mg/dl (70-99) 02/22/24 03:48
Vital Signs and I&O:
Vital Signs
Temp Pulse Resp BP Pulse Ox
99.2 F 68 20 97/61 2
02/22/24 07:44 02/22/24 07:44 02/22/24 07:44 02/22/24 07:00 02/22/24 08:14
Vital Signs
Temp Pulse Resp BP Pulse Ox
99.2 F 68 20 97/61 2
02/22/24 07:44 02/22/24 07:44 02/22/24 07:44 02/22/24 07:00 02/22/24 08:14
Intake & Output
02/20/24 02/21/24 02/22/24 02/23/24
07:59 07:59 07:59 07:59
Intake Total 210 / 210 390 / 390 731.9 / 731.9
Output Total 1247 / 1247
Balance 210 / 210 390 / 390 -515.1 / -515.1
Physical Exam
Physical Exam
GEN: No distress, awake, alert, oriented x3. on supp O2
HEENT: supple, anicteric, mmm, eomi
LUNGS: CTA anterolaterally, no wheezes
CV: Reg, S1/S2, no murmur, + rub
EXT: No cyanosis, clubbing, edema
NEURO: Gross non-focal
SKIN: Warm, pink, dry. No rash. Sternotomy dressing c/d/i. CTs in place
[2024-02-22 09:18] LABS: Glucose - Point of Care 215 mg/dl (70-99)
--- NOTE | 2024-02-22 09:52 | PTCARENOTE ---
LT IJ slick removed as per order. Mediastinal chest tube removed . Rt and LT pleural chest tubes placed to bulb suction. Sommer catheter removed at this time also. Pt assisted x 2 oob to chair w/o issue. Resting in chair w/o issue at present
Levophed weaned as tolerated.
--- NOTE | 2024-02-22 09:54 | PTCARENOTE ---
Pts tooth found in bed . Pt made aware, and pt instructed RN to throw out the tooth.
[2024-02-22 10:42] LABS: Glucose - Point of Care 156 mg/dl (70-99)
--- NOTE | 2024-02-22 11:11 | W.PN.ONC ---
Today's Communication / Plan
-
Anemia - Revlimid, iron deficiency with ferritin 50, IS 15%, Macrocytosis 95 secondary to reticulocytosis 3.1%, hemolysis unlikely with normal LFTs, haptoglobin pending
IV iron ordered
Check heme stool
NSTEMI on heparin gtt, management per cardiology
Retake count appropriate for postop and recovery from Revlimid haptoglobin pending
Follow CBC
Transfuse hemoglobin less than 8.0 g/dL
Impression
Impression
NSTEMI, underwent cath 02/18 with MV CAD including L main disease
Acute CHF, LVEF 47%
Grade 2 follicular lymphoma with short interval relapse following R-Bendamustine but appears to have responded to 1st cycle of 2nd line therapy with Rituxan and lenalidomide. Unfortunately, he has had a myocardial infarction with LAD stenosis and
multiple vessel disease requiring CT surgery approach. Unresolved coronary disease would preclude aggressive NHL directed therapy as he would be unlikely to tolerate significant anemia. His 5-year overall survival is in the range of 50% With
relapsed follicular lymphoma.
Progressive anemia
Ill-defined joint and bone pains
RLE edema, US negative for DVT
Subjective/Objective
Subjective/Objective
Appears to be doing remarkably well. Sitting in the chair comfortable.
Vital Signs:
Vital Signs
Temp Pulse Resp BP Pulse Ox
99.2 F 73 20 101/73 96
02/22/24 07:44 02/22/24 10:30 02/22/24 07:44 02/22/24 10:20 02/22/24 10:20
No scleral icterus
Heart regular
Lungs slightly decreased in bases
Lab Results:
Laboratory Data
WBC 9.8 10^3/uL (4.8-10.8) 02/22/24 03:48
Hgb 8.9 g/dL (13.0-18.0) L 02/22/24 03:48
Plt Count 152 10^3/uL (130-400) 02/22/24 03:48
PT 21.2 Sec (11.4-14.6) H 02/21/24 12:38
INR 1.85 02/21/24 12:38
APTT 37.6 Sec (23.4-35.0) H 02/21/24 12:38
eGFR > 60.00 02/22/24 03:48
[2024-02-22] MEDS: FLEXERIL 5 MG PO ×2 (11:55→20:11)
[2024-02-22] MEDS: NSS IV (12:08)
--- NOTE | 2024-02-22 12:18 | PTCARENOTE ---
Tolerated sitting in chair x 2 hours. Given trinity and flexeril for bone and sternal pain. Weaned to room air. Levophed weaned off. Insulin drip discontinued. Assessment otherwise unchanged.
[2024-02-22] MEDS: FERRLECIT 110 MG IV (14:40)
[2024-02-22] MEDS: CLARITIN 10 MG PO (14:41)
[2024-02-22] MEDS: ZYLOPRIM 300 MG PO (14:41)
--- NOTE | 2024-02-22 15:17 | PTCARENOTE ---
Pt denies urge to void 6 hr post ly removal. No pain on palpation. Bladder scanned for [address] DRY MOP MAKER notified. Will give more time.
[2024-02-22] MEDS: LIPITOR 40 MG PO (16:09)
--- NOTE | 2024-02-22 18:02 | PTCARENOTE ---
Pt still with no void. Denies urge to void. Re bladder scanned for [address] SIGN ERECTOR AND REPAIRER notified. CT bulbs emptied and reconstituted. Denies significant pain at present.
[2024-02-22] MEDS: LOPRESSOR 12.5 MG PO (19:40)
--- NOTE | 2024-02-22 20:00 | PTCARENOTE ---
Assumed care of patient at 1900. Patient found in bed at time of assessment. Patient is Aox4, follows commands appropriately, moves all extremities. Lung sounds are diminished throughout, patient has saO2 of 93% of RA, there is a R/L pleural CT to
bulb suction with serosanguineous drainage. Heart sounds have a regular rate and rhythm. There is a slight rub present on auscultation. Patient has normal palpable radial and dorsalis pedis pulses. There is +3 RLE edema and trace LLE edema. V wires
are in place but insulated. Patient is NSR on the monitor. Patient has active BS throughout all four quadrants, patient able to successfully void 200mL at 1900. Patient has sternal incision with aquacell dressing that is CDI and ABD dressing over CT
wounds that is CDI. Patient has L IJ cordis receiving KVO, L FA 20G, and R SQ port. VSS. Patient c/o 6/10 diffuse body pain and sternal pain given oxy 10 per orders. Patient is stable.
[2024-02-23] VITALS (14 sets, daily range): BP systolic 96–122; BP diastolic 65–95; BMI 30.4
--- NOTE | 2024-02-23 | PTCARENOTE ---
Patient reassessed. Remains SR on the monitor. Patient slightly desatting while sleeping placed on 1L O2 via NC for night. Patient stable.
[2024-02-23] MEDS: ROXICODONE 10 MG PO ×3 (02:44→20:01)
[2024-02-23 03:29] LABS: Hemoglobin 7.8 g/dL (13.0-18.0); Mean Corp Hgb Conc. 35.5 g/dL (33.0-37.0); Mean Corpuscular Hgb 33.3 pg (27.0-31.0); Mean Platelet Volume 10.3 fL (7.4-10.4); Platelet Count 150 10^3/uL (130-400); Red Blood Cell Count 2.34 10^6/uL (4.70-6.10); Red Cell Dist. Width 15.1 % (11.5-14.5); White Blood Cell Count 9.1 10^3/uL (4.8-10.8)
[2024-02-23 03:56] LABS: Blood Urea Nitrogen 21 mg/dl (9-20); Calcium 8.7 mg/dl (8.4-10.2); Carbon Dioxide 24 mmol/L (22-30); Chloride 104 mmol/L (98-107); Estimated Creatinine Clearance 72 ml/min; Glucose 120 mg/dl (70-99); Magnesium 2.1 mg/dl (1.6-2.3); Potassium 4.2 mmol/L (3.5-5.1); Sodium 134 mmol/L (135-145); eGFR > 60.00
--- NOTE | 2024-02-23 05:26 | W.PN.CT ---
Today's Communication / Plan
-
-pod #2
-no issues overnight
-CT output: 2 pleur 40/110 in 12 hrs
-voided post ly removal with 500 ml out in 12 hrs.
-diuresis
-worsening anemia, asymptomatic, Hgb 7.8 from 8.9 yesterday, follow H&H, ? transfuse RBC's
-d/c insulin
-current meds (ASA, Plavix, Lipitor, Lopressor, Amio, Protonix, Acyclovir)
-encourage IS, OOB
Assessment / Plan
-
- mv-CAD/NSTEMI- s/p on pump Cabg x4 (Chavira-distal Lad, Elyse 'y-graft off Chavira' to Diag/Om/Om) on 02/21/[address] Jaramillo, pod #1
- no DILLON secondary to poor dentition with multiple loose teeth
- no obvious anterior mediastinal lymphadenopathy to biopsy
- HTN/HLD
- EF 47%
- CKD 3a (Cr 1.2-1.3 preop)
- R groin follicular lymphoma 10/2022, tx with XRT and chemo
- Chronic lymphedema of RLE
- Acute on chronic anemia
- s/p IR biopsy of R groin, surgical biopsy 11/[address] Giles Amin
- gout
- nonsmoker
- chronic pain - on Roxicodone 10 mg q6h preop
- acute on chronic postop blood loss anemia - s/p 1 pRBC
- acute postop atelectasis
- acute postop hypovolemia with subsequent hypervolemia
Subjective
Procedure
- s/p on pump Cabg x4 (Chavira-distal Lad, Elyse 'y-graft off Chavira' to Diag/Om/Om) on 02/21/[address] Jaramillo
-
Date of Service: February 23, 2024
Objective Data
-
Lab Results
02/23/24 03:01
02/23/24 03:01
PT 21.2 Sec (11.4-14.6) H 02/21/24 12:38
INR 1.85 02/21/24 12:38
APTT 37.6 Sec (23.4-35.0) H 02/21/24 12:38
Vital Signs
Vital Signs
Temp Pulse Resp BP Pulse Ox
98.9 F 73 16 114/71 90
02/22/24 23:00 02/23/24 03:15 02/22/24 23:00 02/23/24 03:00 02/22/24 23:00
CT Intake/Output/Weight
02/22/24 02/22/24 02/23/24
06:59 18:59 06:59
Intake Total 371.2 / 575.9 831.3 / 831.3
Output Total 582 / 1207 110 / 650 540 / 650
Balance -210.8 / -631.1 721.3 / 181.3 -540 / 181.3
SaO2: 90
Physical Exam
-
General: AOx3
Cardiovascular: Regular rate & rhythm
Respiratory: Decreased Breath Sounds
Sternum: Stable
Incision: Clean, Dry and Intact
Extremities: Edema +1
--- NOTE | 2024-02-23 05:34 | PTCARENOTE ---
Patient reassessed. Remains SR on the monitor. VSS. Successful void. Oxy 10 for pain. Patient is stable.
[2024-02-23] MEDS: TYLENOL 1000 MG PO ×3 (06:20→20:00)
--- NOTE | 2024-02-23 06:44 | W.PN.ANS.POP ---
Anesthesia Post Operative
- Anesthesia Post Op Note
Vital Signs Stable-See Nursing Note: Yes
Airway Patent: Yes
Adequate Pain Control: Yes
Change in Mental Status: No
Current Postoperative Nausea & Vomiting: No
Anesthesia Complications: No
General Anesthetic Recall: No
Unplanned Admission: No
Post Op Hydration Adequate: Yes
- -
patient resting comfortably in bed. VSS. No complaints at this time.
--- NOTE | 2024-02-23 08:03 | PTCARENOTE ---
Pt recevied from outgoing RN, pt POD 2 oob in a chair, NSR, VSS, RA, P CT x2 to bulb, lt IJ cordis, rt cw port, pain management, IV lasix this am, dced P CT this am, ambulate with nursing staff. RN will continue to monitor.
[2024-02-23] MEDS: LASIX 40 MG IV ×2 (08:31→15:13)
[2024-02-23] MEDS: LOPRESSOR 12.5 MG PO ×2 (08:31→20:02)
[2024-02-23] MEDS: BACTROBAN 2% OINTMENT 1 APPLIC NASAL ×2 (08:31→19:59)
[2024-02-23] MEDS: SENOKOT-S 1 TABLET PO ×2 (08:32→20:02)
[2024-02-23] MEDS: PLAVIX 75 MG PO (08:32)
[2024-02-23] MEDS: PROTONIX 40 MG PO (08:32)
[2024-02-23] MEDS: NEURONTIN 100 MG PO ×3 (08:32→20:01)
[2024-02-23] MEDS: MAGNESIUM OXIDE 500 MG PO ×2 (08:32→20:00)
[2024-02-23] MEDS: ZYLOPRIM 300 MG PO (08:32)
[2024-02-23] MEDS: ZOVIRAX 400 MG PO ×2 (08:32→20:02)
[2024-02-23] MEDS: LOW STRENGTH ASPIRIN 81 MG PO (08:33)
[2024-02-23] MEDS: LIDOCAINE 4% PATCH TOPICAL (08:33)
--- NOTE | 2024-02-23 09:30 | PTCARENOTE ---
R& L P CT dced at 0930, bedrest for 1 hr.
[2024-02-23 09:33] LABS: Haptoglobin 125 mg/dL (30-200)
[2024-02-23] MEDS: FLEXERIL 5 MG PO ×2 (10:56→20:00)
[2024-02-23] MEDS: NSS IV (11:53)
--- NOTE | 2024-02-23 11:54 | PTCARENOTE ---
Pt reassessment unchanged from previous, vss, RA, ambulating in the halls with standby assist, PCT x2 dced, IS 750-1000, pain management with oxy and flexirel.
[2024-02-23] MEDS: FERRLECIT 110 MG IV (13:49)
[2024-02-23] MEDS: CLARITIN 10 MG PO (15:13)
[2024-02-23] MEDS: KCL 40 MEQ PO (15:13)
--- NOTE | 2024-02-23 15:18 | PTCARENOTE ---
Pt reassessment unchanged from previous, vss, ra, nsr, pain management, Rt wrist IV leaking, RN dced leaking IV and placed new 20g in left wrist.
[2024-02-23] MEDS: LIPITOR 40 MG PO (18:36)
--- NOTE | 2024-02-23 20:00 | PTCARENOTE ---
PT AAOx4 ambulating in room w/o complaints of pain. VSS and V wire insulated. all surgical wounds and lines CDI and WNL. see worklist for detailed assessment
[2024-02-23] MEDS: HYTRIN 4 MG PO (20:06)
[2024-02-24] VITALS (7 sets, daily range): BP systolic 94–118; BP diastolic 57–75; PULSE 75; O2SAT 94–96; BMI 29.9
--- NOTE | 2024-02-24 | PTCARENOTE ---
no change from previous assessment
--- NOTE | 2024-02-24 04:00 | PTCARENOTE ---
no change from previous assessment
--- NOTE | 2024-02-24 05:35 | W.PN.CT ---
Today's Communication / Plan
-
-pod #3
-no issues overnight
-UO for past 12/24 hours
- anemia, asymptomatic, Hgb 8.5 from 7.8 yesterday, follow H&H
-current meds (ASA, Plavix, Lipitor, Lopressor, Amio, Protonix, Acyclovir)
-encourage IS, OOB
-discharge planning, anticipate within next 24 hrs.
Assessment / Plan
-
- mv-CAD/NSTEMI- s/p on pump Cabg x4 (Chavira-distal Lad, Elyse 'y-graft off Chavira' to Diag/Om/Om) on 02/21/[address] Jaramillo, pod #1
- no DILLON secondary to poor dentition with multiple loose teeth
- no obvious anterior mediastinal lymphadenopathy to biopsy
- HTN/HLD
- EF 47%
- CKD 3a (Cr 1.2-1.3 preop)
- R groin follicular lymphoma 10/2022, tx with XRT and chemo
- Chronic lymphedema of RLE
- Acute on chronic anemia
- s/p IR biopsy of R groin, surgical biopsy 11/[address] Giles Amin
- gout
- nonsmoker
- chronic pain - on Roxicodone 10 mg q6h preop
- acute on chronic postop blood loss anemia - s/p 1 pRBC
- acute postop atelectasis
- acute postop hypovolemia with subsequent hypervolemia
Subjective
Procedure
- s/p on pump Cabg x4 (Chavira-distal Lad, Elyse 'y-graft off Chavira' to Diag/Om/Om) on 02/21/[address] Jaramillo
-
Date of Service: February 24, 2024
Objective Data
-
Lab Results
02/24/24 05:27
02/24/24 05:26
PT 21.2 Sec (11.4-14.6) H 02/21/24 12:38
INR 1.85 02/21/24 12:38
APTT 37.6 Sec (23.4-35.0) H 02/21/24 12:38
Vital Signs
Vital Signs
Temp Pulse Resp BP Pulse Ox
97.9 F 84 20 122/95 99
02/23/24 15:08 02/23/24 21:00 02/23/24 15:08 02/23/24 20:02 02/23/24 20:30
CT Intake/Output/Weight
02/23/24 02/23/24 02/24/24
06:59 18:59 06:59
Intake Total 10 / 10
Output Total 540 / 650 2150 / 2750 600 / 2750
Balance -540 / 181.3 -2140 / -2740 -600 / -2740
SaO2: 99
Physical Exam
-
General: AOx3
Cardiovascular: Regular rate & rhythm
Respiratory: Decreased Breath Sounds
Sternum: Stable
Incision: Dressing Intact
Extremities: Edema +2 (RLE (chronic lymphedema))
[2024-02-24 05:58] LABS: Hematocrit 24.4 % (39.0-52.0); Hemoglobin 8.5 g/dL (13.0-18.0); Mean Corp Hgb Conc. 34.8 g/dL (33.0-37.0); Mean Corpuscular Hgb 33.1 pg (27.0-31.0); Mean Corpuscular Volume 94.9 fL (80.0-94.0); Mean Platelet Volume 10.3 fL (7.4-10.4); Platelet Count 146 10^3/uL (130-400); Red Blood Cell Count 2.57 10^6/uL (4.70-6.10); Red Cell Dist. Width 14.8 % (11.5-14.5); White Blood Cell Count 6.5 10^3/uL (4.8-10.8)
[2024-02-24 06:07] LABS: Blood Urea Nitrogen 25 mg/dl (9-20); Calcium 8.7 mg/dl (8.4-10.2); Carbon Dioxide 26 mmol/L (22-30); Chloride 104 mmol/L (98-107); Estimated Creatinine Clearance 66 ml/min; Glucose 113 mg/dl (70-99); Magnesium 2.1 mg/dl (1.6-2.3); Potassium 3.8 mmol/L (3.5-5.1); Sodium 134 mmol/L (135-145); eGFR > 60.00
[2024-02-24] MEDS: TYLENOL PO (07:10)
--- NOTE | 2024-02-24 07:45 | PTCARENOTE ---
Received pt from scrubber system attendant RN; pt AAOX3 and resting comfortably in chair; NSR on monitor and VSS; Epicardial V wires insulated; RIJ Cordis, Right Sub Q port and PIV x1 all patent; Lungs diminished; IS to 1000; positive bowel sounds and pt voiding
clear yellow urine; palpable pulses throughout; no edema noted; surgical dressing C/D/I; see nursing documentation for further details.
[2024-02-24] MEDS: ROXICODONE 10 MG PO (08:06)
[2024-02-24] MEDS: LOW STRENGTH ASPIRIN 81 MG PO (08:07)
[2024-02-24] MEDS: PROTONIX 40 MG PO (08:07)
[2024-02-24] MEDS: MAGNESIUM OXIDE 500 MG PO (08:07)
[2024-02-24] MEDS: NEURONTIN 100 MG PO (08:07)
[2024-02-24] MEDS: ZYLOPRIM 300 MG PO (08:07)
[2024-02-24] MEDS: KCL 40 MEQ PO (08:07)
[2024-02-24] MEDS: ZOVIRAX 400 MG PO (08:07)
[2024-02-24] MEDS: LOPRESSOR 12.5 MG PO (08:07)
[2024-02-24] MEDS: PLAVIX 75 MG PO (08:07)
[2024-02-24] MEDS: SENOKOT-S 1 TABLET PO (08:07)
[2024-02-24] MEDS: LIDOCAINE 4% PATCH 1 PATCH TOPICAL (08:14)
[2024-02-24] MEDS: BACTROBAN 2% OINTMENT 1 APPLIC NASAL (08:15)
--- NOTE | 2024-02-24 08:18 | PTCARENOTE ---
Epicardial V wires cut with CV MACHINE BINDING FOLDER at bedside; Cordis removed per CV MACHINE BINDING FOLDER order.
--- NOTE | 2024-02-24 08:53 | W.DCSUMMARY ---
Discharge Summary
Discharge Data
Date of Admission: 02/17/24
Date of Discharge: 02/24/24
-
Pending Results: No
Hospital Course
Primary care physician: Rakan Ackerman
Outpatient rust proofer: Terry Garvey
Inpatient consultants: [facility]
Procedures:
1. Coronary artery bypass grafting
Primary Diagnosis:
1. NSTEMI/coronary artery disease
Secondary Diagnoses:
1. Follicular lymphoma treated with radiation and chemo (10/2022)
2. Chronic right lower extremity lymphedema due to lymphoma
3. Hyperlipidemia
4. Hypertension
5. Gout
6. Acute surgical blood loss anemia on chronic anemia
HPI: 68-year-old male with history of right groin follicular lymphoma diagnosed 10/2022 and treated with radiation (10/2022), and chemotherapy (1 cycle of Revlimid 01/15/24-02/04/24) is followed by Dr. Rakan Ackerman. Patient presented to
[facility] emergency department on 02/16/2024 with chief complaints of severe, and diffuse bone pain. Patient found to have abnormal EKG with lateral ST and T wave changes with peak troponin 20.5, c/w NSTEMI. Patient decided to leave AMA.
He had an appointment with his oncologist the following day on 02/17/24. Dr. Ackerman directed the patient back to the emergency department for further admission and workup. Subsequent cardiac catheterization on 02/19/[address] Gordon revealed LM/
Multivessel CAD.
Hospital course: Patient underwent CABG x 4 with ESCALERA to the LAD, NELLY (Y graft off ESCALERA) and sequenced to diagonal, OM1, and OM [address] Jacob Jaramillo on 01/22/2024. Intraoperative DILLON was not performed due to loose teeth and poor dentition.
Patient returned to CVICU on Levophed, Precedex, and insulin. Initial hemoglobin was 8.1 after ultrafiltration of 2 L in the operating room. Patient received 1 PRBC. Patient extubated at 1510 on the day of surgery. On postoperative day #1,
patient had bladder catheter and mediastinal chest tubes removed. Insulin and Levophed were weaned off. Aspirin and Plavix were initiated. Atorvastatin was increased to high intensity dosing status post bypass. Patient found right back molar in
his bed and instructed to follow-up with his dentist as outpatient for dental care.. On postoperative day #2, hemoglobin was 7.8 and patient was asymptomatic. Patient did receive Lasix 40 mg IV x 2 with potassium supplement. Right and left
pleural chest drains were removed postoperative day #3, hemoglobin increased to 8.5. Temporary epicardial ventricular wires were clipped at skin level. Patient will be followed by transitional RN and have CBC drawn in 1 week to monitor anemia.
Results to be given to Drs. Garvey and Tyron. Right chest port was de accessed. Patient ambulated with cardiac rehab and deemed stable for discharge.
Home medication changes:
Atorvastatin increased to 40 mg daily
Benazepril stopped due to low normal range blood pressure during hospitalization
Discharge Plan
-
Patient Disposition: Home (Routine Discharge)
Discharge Diagnosis/Procedures: CAD/CABG
Condition: Good
Diet: Low Cholesterol and Low Sodium
Activity: No strenuous activity
Driving Restrictions: Not until seen by your Dr
Bathing Restrictions: OK to Shower
Blood Work: CBC in 1 week
Other Services: Cardiac Rehab
Specialty Instructions: Weigh Daily- Call MD for wt gain/loss 3 lbs overnight/5 lbs in 1 week
Instructions: *DCA Heart Failure Instructions
Referrals:
CT Transitional Care Nurse [Outside] - in one to two days
(
The Cardiothoracic Transitional Care Nurse will call you to set up a visit in 1-2 days.)
[facility]. Cardiac Rehab [Outside] - 04/02/24 1:00 pm
(Cardiac Rehab Orientation appointment is on March @ 1:00pm.
The Cardiac Rehab gym is located on the first floor of the [facility].)
Maday Nieto PA-C [Specified Professional Personl] - 04/01/24 10:40 am
Jacob Jaramillo MD [Active] - 03/16/24 9:30 am
NONE,* [Family Provider] -
Additional Discharge Medication Instructions: Atorvastatin high intensity dose after CABG, Aspirin/ Clopidigrel for graft patency, Toprol for coronary disease
Prescriptions:
New
atorvastatin 40 mg Tablet
40 mg PO QPM Qty: 30 1RF
pantoprazole 40 mg Tablet,Delayed Release (Dr/Ec)
40 mg PO DAILY Qty: 30 1RF
aspirin 81 mg Tablet,Chewable
81 mg PO DAILY Qty: 0 0RF
clopidogrel 75 mg Tablet
75 mg PO DAILY Qty: 30 1RF
metoprolol succinate [Toprol XL] 25 mg tablet extended release 24 hr
25 mg PO DAILY Qty: 30 1RF
gabapentin 100 mg Capsule
100 mg PO TID Qty: 30 0RF
Continued
terazosin 2 mg capsule
4 mg PO QPM
acyclovir 400 mg Tablet
400 mg PO BID
allopurinol 300 mg Tablet
300 mg PO QPM
Medical Marijuana
2 gummy PO DAILYPRN PRN (Reason: mild pains/anxiety)
ondansetron HCl 8 mg Tablet
8 mg PO [id number] PRN (Reason: nausea)
acetaminophen [Tylenol 8 Hour] 650 mg Tablet Extended Release
1,300 mg PO [id number] PRN (Reason: mild pain)
docusate sodium [Colace] 100 mg Capsule
100 mg PO BID
loratadine [Claritin] 10 mg Tablet
10 mg PO DAILY@1500
oxycodone 10 mg Tablet
10 mg PO Q6HPRN PRN (Reason: severe pain)
Discontinued
atorvastatin 10 mg tablet
10 mg PO QPM
benazepril 40 mg tablet
40 mg PO QPM
Discharge Orders:
Discharge Patient (As Directed); Ordered 02/24/24
Ordered By: Graciela Green
Care Plan Goals
Care Plan Goals:
Problem: Readiness for enhanced knowledge related to diagnosis and treatment plan
Goal: Understand your diagnosis and treatment plan needs, including medications if applicable.
Instructions: Know your diagnosis, underlying causes and treatment plan options, including medications if applicable. Consult with your health care team to learn about your diagnosis and treatment plan, including medications if applicable.
Discharge Date and Time
Print Language: UZBEK
--- NOTE | 2024-02-24 08:55 | CM ---
Reviewed chart. Met with Mr. Soto to review discharge plans. He states he is feeling well and maybe able to go home soon. He states he has been getting out of bed and out of the chair without any problem. He has be ambulating in the room. We
reviewed a home visit by the Cardiothoracic Transitional Care Nurse. He is agreeable to a home visit. Prior to admission he resides with his significant other in a two story home with six steps to enter. He states he has a full bathroom and bedroom
on each floor. Prior to admission he was independent with ambulation and adls. He does not have any DME in the home. His significant other willbe home to assist in his care at home if needed. Medical work-up in progress. The discharge plan is to
return home with his significant other and a home visit by the Cardiothoracic Transitional Care Nurse when medically stable.
[2024-02-24] MEDS: ZOFRAN 4 MG IV (10:58)
--- NOTE | 2024-02-24 11:37 | PTCARENOTE ---
Pt showered and dressed self; Vital signs done; laboratory monitor and IV removed; Discharge papers gone over with pt and ; all questions answered.
--- NOTE | 2024-02-24 19:47 | W.PN.CARDCBS ---
Today's Communication / Plan
-
Okay for discharge
Impression / Plan
-
PCP:
Disability Insurance Claim Examiner: none prior to admission, Initial consult Dr. Garvey
Impression
Presented 02/16/2024 with all over bone pain
Acute CHF, proBNP 8800
NSTEMI with peak trop 20.5
Abnormal ECG w/ lateral ST and T wave changes on ECG 02/16/2024
MV CAD by cath
s/p CABG x4 ESCALERA to distal LAD, NELLY�diagonal/OM/OM, on pump 02/21/24
acute on chronic anemia
History of follicular lymphoma of right groin, followed by Dr. Ackerman previously on Revlimid 01/15/24 through 02/04/24
History of hypertension
Anemia
Chronic lymphedema of RLE
Echo 02/17/2024: EF 47%, mild septal hypertrophy, mid and distal septal, mid anteroseptal, anterior hypokinesis, stage II diastolic dysfunction, mild to moderate MR, mild TR, PAP 38 mmHg, top normal aortic root size
Plan:
Doing very well.
Okay for discharge from cardiac standpoint.
Appreciate efforts of CT surgical team.
PREADMIT DATA:
-He presented 02/16/24 with complaints of bone pain which he felt was due to chemotherapy, previously on Revlimid 01/15/24 through 02/04/24 and opted not to continue next round. However he was noted to have significant lower extremity edema, scrotal
edema and was found to have evidence of acute heart failure on chest x-ray with elevated proBNP of 5250. He was also noted to have abnormal EKG with lateral ST-T wave changes, elevated troponin of 15.8 and repeat 17.3 concerning for non-ST elevation
AR. He was provided 1 dose of IV Lasix in emergency department. Patient was admitted however later decided to sign out AMA from emergency department. He now presents back 02/17/2024 for further evaluation and work-up. Patient provided additional
dose of 40 mg IV Lasix and ASA 325 mg in ED on 02/17/2024. EKG shows sinus rhythm with nonspecific ST-T wave abnormality. ProBNP now 8800 and troponin 19.
Progress Note - Disability Insurance Claim Examiner
Subjective
Date of Service: February 24, 2024:
Patient now postop day 3 following CABG
Discharged later today
PMH/PSH/SH/FH: Reviewed
Allergies: None to oral medications
Outpatient meds: Reviewed
Current meds: Reviewed
ROS: Negative except as above
104/70, pulse 80, respiratory 20, afebrile, intake and output -2.3 L
Head neck exam unremarkable, lungs mildly diminished left base, regular rate and rhythm with rub, abdomen benign, 2+ edema on right, 1+ left
Chest x-ray: Some opacification left base, central line placed, chest tubes out, hemoglobin 8.5, platelets 146, BUN and creatinine 25 and 1.1,
EKG sinus rhythm, lateral T wave inversion
Objective
Labs:
02/24/24 05:27
02/24/24 05:26
Labs
Hgb 8.5 g/dL (13.0-18.0) L 02/24/24 05:27
Hct 24.4 % (39.0-52.0) L 02/24/24 05:27
Plt Count 146 10^3/uL (130-400) 02/24/24 05:27
PT 21.2 Sec (11.4-14.6) H 02/21/24 12:38
INR 1.85 02/21/24 12:38
APTT 37.6 Sec (23.4-35.0) H 02/21/24 12:38
Sodium 134 mmol/L (135-145) L 02/24/24 05:26
Potassium 3.8 mmol/L (3.5-5.1) 02/24/24 05:26
BUN 25 mg/dl (9-20) H 02/24/24 05:26
Creatinine 1.1 mg/dL (0.7-1.3) 02/24/24 05:26
Glucose 113 mg/dl (70-99) H 02/24/24 05:26
Vital Signs and I&O:
Vital Signs
Temp Pulse Resp BP Pulse Ox
36.9 C 79 20 94/57 92
02/24/24 11:24 02/24/24 10:00 02/24/24 11:24 02/24/24 11:29 02/24/24 11:28
Vital Signs
Temp Pulse Resp BP Pulse Ox
36.9 C 79 20 94/57 92
02/24/24 11:24 02/24/24 10:00 02/24/24 11:24 02/24/24 11:29 02/24/24 11:28
Intake & Output
02/22/24 02/23/24 02/24/24 02/25/24
07:59 07:59 07:59 07:59
Intake Total 731.9 / 731.9 675.3 / 685.3 10 / 490 480 / 480
Output Total 1247 / 1247 610 / 610 2750 / 2750
Balance -515.1 / -515.1 65.3 / 75.3 -2740 / -2260 480 / 480
Physical Exam
Physical Exam
See above
== END 2024-02-24 12:01 | disposition home or self-care (01) | DRG 233 ==
LOC: CVICU 12:29
PROVIDERS: Clinical Nurse Specialist Acute Care; Internal Medicine Interventional Cardiology; Nurse Practitioner Acute Care; Physician Assistant Medical; ADMITTING PHYSICIAN Hospitalist; ATTENDING PHYSICIAN Thoracic Surgery (Cardiothoracic Vascular Surgery); CONSULT PHYSICIAN Internal Medicine Cardiovascular Disease; CONSULT PHYSICIAN Internal Medicine Critical Care Medicine; CONSULT PHYSICIAN Internal Medicine Hematology & Oncology; EMERGENCY PHYSICIAN Emergency Medicine
PROC: 4A023N7 Measurement of Cardiac Sampling and Pressure, Left Heart, Percutaneous Approach (ICD-10-PCS; 2024-02-19)
PROC: B2111ZZ Fluoroscopy of Multiple Coronary Arteries using Low Osmolar Contrast (ICD-10-PCS; 2024-02-19)
PROC: 021 Heart and Great Vessels, Bypass (ICD-10-PCS; 2024-02-21)
PROC: 5A1221Z Performance of Cardiac Output, Continuous (ICD-10-PCS; 2024-02-21)
PROC: 02100Z9 Bypass Coronary Artery, One Artery from Left Internal Mammary, Open Approach (ICD-10-PCS; 2024-02-21)
PROC: 30233N1 Transfusion of Nonautologous Red Blood Cells into Peripheral Vein, Percutaneous Approach (ICD-10-PCS; 2024-02-21)
DX: I21.4 Non-ST elevation (NSTEMI) myocardial infarction (principal); I50.21 Acute systolic (congestive) heart failure; C82.15 Follicular lymphoma grade II, lymph nodes of inguinal region and lower limb; D62 Acute posthemorrhagic anemia; D84.9 Immunodeficiency, unspecified; I13.0 Hypertensive heart and chronic kidney disease with heart failure and stage 1 through stage 4 chronic kidney disease, or unspecified chronic kidney disease; J98.11 Atelectasis; I25.10 Atherosclerotic heart disease of native coronary artery without angina pectoris; I89.0 Lymphedema, not elsewhere classified; E78.00 Pure hypercholesterolemia, unspecified; E86.1 Hypovolemia; M1A.9XX0 Chronic gout, unspecified, without tophus (tophi); D64.81 Anemia due to antineoplastic chemotherapy; T45.1X5A Adverse effect of antineoplastic and immunosuppressive drugs, initial encounter; K08.89 Other specified disorders of teeth and supporting structures; R74.01 Elevation of levels of liver transaminase levels; J47.9 Bronchiectasis, uncomplicated; N40.0 Benign prostatic hyperplasia without lower urinary tract symptoms; N18.31 Chronic kidney disease, stage 3a; G89.29 Other chronic pain; Z92.21 Personal history of antineoplastic chemotherapy; Z92.3 Personal history of irradiation
CPT/HCPCS: 71045; 71260; 80048; 80053; 80061; 81003; 82330; 82565; 82805; 82947; 82962; 83010; 83036; 83615; 83735; 83880; 84132; 84302; 84484; 84520; 85014; 85018; 85027; 85045; 85049; 85610; 85730; 86850; 86900; 86901; 86920; 93005; 93306; 93458; 93880; 93971; 94002; 96374; 99152; 99153; 99285; C1713; C1894; J2916; P9016; P9045; P9047; Q9967

== ENCOUNTER 2024-04-27 13:35 | Outpatient (RCR) | payer MEDICARE, OTHER, SELFPAY | END 2024-04-27 23:59 | disposition home or self-care (01) | LOC: CRHB 13:35 | PROVIDERS: ATTENDING PHYSICIAN Internal Medicine Cardiovascular Disease | DX: I25.10 Atherosclerotic heart disease of native coronary artery without angina pectoris (principal); Z95.5 Presence of coronary angioplasty implant and graft; I25.2 Old myocardial infarction | CPT/HCPCS: 93798; G0422; G0423 ==

== ENCOUNTER 2024-05-20 13:16 | Outpatient (RCR) | payer MEDICARE, OTHER, SELFPAY | END 2024-05-20 23:59 | disposition home or self-care (01) | LOC: CRHB 13:16 | PROVIDERS: ATTENDING PHYSICIAN Internal Medicine Cardiovascular Disease | DX: I21.4 Non-ST elevation (NSTEMI) myocardial infarction (principal); Z95.5 Presence of coronary angioplasty implant and graft | CPT/HCPCS: G0422; G0423 ==

== ENCOUNTER 2024-06-24 13:51 | Outpatient (RCR) | payer MEDICARE, OTHER, SELFPAY | END 2024-06-24 23:59 | disposition home or self-care (01) | LOC: CRHB 13:51 | PROVIDERS: ATTENDING PHYSICIAN Internal Medicine Cardiovascular Disease | DX: I21.4 Non-ST elevation (NSTEMI) myocardial infarction (principal); Z95.5 Presence of coronary angioplasty implant and graft | CPT/HCPCS: G0422; G0423 ==

== ENCOUNTER 2024-07-15 13:23 | Outpatient (RCR) | payer MEDICARE, OTHER, SELFPAY | END 2024-07-15 23:59 | disposition home or self-care (01) | LOC: CRHB 13:23 | PROVIDERS: ATTENDING PHYSICIAN Internal Medicine Cardiovascular Disease | DX: I21.4 Non-ST elevation (NSTEMI) myocardial infarction (principal); Z95.5 Presence of coronary angioplasty implant and graft | CPT/HCPCS: G0422; G0423 ==

== ENCOUNTER → 2024-12-04 10:22 | Outpatient (REF) | payer MEDICARE, OTHER, SELFPAY | LOC: RAD 10:22 | PROVIDERS: ATTENDING PHYSICIAN Internal Medicine Hematology & Oncology | DX: C82.95 Follicular lymphoma, unspecified, lymph nodes of inguinal region and lower limb (principal); G89.3 Neoplasm related pain (acute) (chronic) | CPT/HCPCS: 73552 ==

== ENCOUNTER → 2024-12-30 16:17 | Outpatient (REF) | payer OTHER, SELFPAY | LOC: RCS 16:17 | PROVIDERS: ATTENDING PHYSICIAN Internal Medicine Hematology & Oncology | DX: C82.95 Follicular lymphoma, unspecified, lymph nodes of inguinal region and lower limb (principal); G89.3 Neoplasm related pain (acute) (chronic) | CPT/HCPCS: 93306; 93356 ==

== ENCOUNTER → 2025-01-18 10:02 | Outpatient (REF) | payer OTHER, SELFPAY ==
[2025-01-18 10:33] LABS: Hematocrit 35.6 % (39.0-52.0); Hemoglobin 12.6 g/dL (13.0-18.0); Mean Corp Hgb Conc. 35.4 g/dL (33.0-37.0); Mean Corpuscular Hgb 34.1 pg (27.0-31.0); Mean Corpuscular Volume 96.5 fL (80.0-94.0); Mean Platelet Volume 9.8 fL (7.4-10.4); Platelet Count 129 10^3/uL (130-400); Red Blood Cell Count 3.69 10^6/uL (4.70-6.10); Red Cell Dist. Width 13.1 % (11.5-14.5); White Blood Cell Count 9.2 10^3/uL (4.8-10.8)
[2025-01-18 10:53] LABS: % Basophils 0.9 % (0-2); % Lymphocytes 4.7 % (20.5-51.1); % Monocytes 4.4 % (1.7-9.3); Absolute Basophils 0.1 10^3/uL (0-0.2); Absolute Eosinophils 0.1 10^3/uL (0-0.7); Absolute Immature Granulocytes 0.6 10^3/uL (0-0.05); Absolute Lymphocytes 0.4 10^3/uL (1.2-3.4); Absolute Monocytes 0.4 10^3/uL (0.1-0.6); Absolute Neutrophils 7.6 10^3/uL (1.4-6.5); Nucleated Red Blood Cells % 0 % (-)
[2025-01-18 14:44] LABS: ALT (SGPT) 18 U/L (0-50); AST (SGOT) 26 U/L (17-59); Albumin 4.5 g/dl (3.5-5.0); Alkaline Phosphatase 85 U/L (38-126); Blood Urea Nitrogen 23 mg/dl (9-20); Calcium 9.3 mg/dl (8.4-10.2); Carbon Dioxide 22 mmol/L (22-30); Chloride 110 mmol/L (98-107); Glucose 121 mg/dl (70-99); Potassium 4.6 mmol/L (3.5-5.1); Sodium 143 mmol/L (135-145); Total Bilirubin 0.8 mg/dl (0.2-1.3); Total Protein 6.5 g/dl (6.3-8.2); Uric Acid 5.2 mg/dl (3.5-8.5); eGFR 58.73
== END ==
LOC: REG 10:02
PROVIDERS: ATTENDING PHYSICIAN Internal Medicine Hematology & Oncology
DX: C82.95 Follicular lymphoma, unspecified, lymph nodes of inguinal region and lower limb (principal); G89.3 Neoplasm related pain (acute) (chronic)
CPT/HCPCS: 36415; 80053; 84550; 85025

== ENCOUNTER → 2025-01-25 11:36 | Outpatient (REF) | payer OTHER, MEDICARE, SELFPAY ==
[2025-01-25 12:22] LABS: Hematocrit 33.6 % (39.0-52.0); Hemoglobin 12.2 g/dL (13.0-18.0); Mean Corp Hgb Conc. 36.3 g/dL (33.0-37.0); Mean Corpuscular Hgb 34.8 pg (27.0-31.0); Mean Corpuscular Volume 95.7 fL (80.0-94.0); Mean Platelet Volume 9.7 fL (7.4-10.4); Platelet Count 144 10^3/uL (130-400); Red Blood Cell Count 3.51 10^6/uL (4.70-6.10); Red Cell Dist. Width 13.6 % (11.5-14.5); White Blood Cell Count 11.7 10^3/uL (4.8-10.8)
[2025-01-25 12:58] LABS: Segmented Neutrophils 82 % (42-75)
[2025-01-25 12:59] LABS: Absolute Neutrophils -Man Diff 10.1 10^3/uL (1.4-6.5); Band Neutrophils 5 % (0-3); Lymphocytes 3 % (20-51); Metamyelocytes 3 % (-); Monocytes 5 % (2-9); Myelocytes 2 % (-)
[2025-01-25 13:01] LABS: Normal RBC Morphology Yes; Platelets Checked Yes; Total Cells Counted 100
[2025-01-25 14:52] LABS: AST (SGOT) 27 U/L (17-59); Albumin 4.2 g/dl (3.5-5.0); Alkaline Phosphatase 64 U/L (38-126); Blood Urea Nitrogen 20 mg/dl (9-20); Calcium 9.5 mg/dl (8.4-10.2); Carbon Dioxide 24 mmol/L (22-30); Chloride 110 mmol/L (98-107); Glucose 107 mg/dl (70-99); Potassium 4.3 mmol/L (3.5-5.1); Sodium 143 mmol/L (135-145); Total Bilirubin 0.9 mg/dl (0.2-1.3); Total Protein 6.3 g/dl (6.3-8.2); Uric Acid 4.3 mg/dl (3.5-8.5); eGFR > 60.00
[2025-01-25 15:01] LABS: ALT (SGPT) 20 U/L (0-50)
== END ==
LOC: REG 11:36
PROVIDERS: ATTENDING PHYSICIAN Internal Medicine Hematology & Oncology
DX: C82.95 Follicular lymphoma, unspecified, lymph nodes of inguinal region and lower limb (principal); G89.3 Neoplasm related pain (acute) (chronic)
CPT/HCPCS: 36415; 80053; 84550; 85025

== ENCOUNTER → 2025-02-09 11:40 | Outpatient (REF) | payer MEDICARE, OTHER, SELFPAY ==
[2025-02-09 12:50] LABS: Hematocrit 35.0 % (39.0-52.0); Hemoglobin 12.1 g/dL (13.0-18.0); Mean Corp Hgb Conc. 34.6 g/dL (33.0-37.0); Mean Corpuscular Volume 100.3 fL (80.0-94.0); Platelet Count 138 10^3/uL (130-400); Red Cell Dist. Width 15.1 % (11.5-14.5)
[2025-02-09 13:27] LABS: Nucleated Red Blood Cells % 0 % (-)
[2025-02-09 13:28] LABS: ALT (SGPT) 31 U/L (0-50); AST (SGOT) 38 U/L (17-59); Albumin 4.5 g/dl (3.5-5.0); Alkaline Phosphatase 122 U/L (38-126); Blood Urea Nitrogen 19 mg/dl (9-20); Calcium 9.8 mg/dl (8.4-10.2); Carbon Dioxide 29 mmol/L (22-30); Chloride 106 mmol/L (98-107); Glucose 123 mg/dl (70-99); Potassium 4.9 mmol/L (3.5-5.1); Sodium 141 mmol/L (135-145); Total Protein 6.5 g/dl (6.3-8.2); eGFR 58.73
[2025-02-09 13:42] LABS: Uric Acid 5.7 mg/dl (3.5-8.5)
== END ==
LOC: REG 11:40
PROVIDERS: ATTENDING PHYSICIAN Internal Medicine Hematology & Oncology
DX: C82.95 Follicular lymphoma, unspecified, lymph nodes of inguinal region and lower limb (principal); G89.3 Neoplasm related pain (acute) (chronic)
CPT/HCPCS: 36415; 80053; 84550; 85025

== ENCOUNTER → 2025-02-16 10:09 | Outpatient (REF) | payer OTHER, MEDICARE, SELFPAY ==
[2025-02-16 11:20] LABS: Hematocrit 33.5 % (39.0-52.0); Hemoglobin 11.3 g/dL (13.0-18.0); Mean Corp Hgb Conc. 33.7 g/dL (33.0-37.0); Mean Corpuscular Volume 101.8 fL (80.0-94.0); Platelet Count 206 10^3/uL (130-400); Red Cell Dist. Width 15.7 % (11.5-14.5)
[2025-02-16 12:01] LABS: ALT (SGPT) 35 U/L (0-50); AST (SGOT) 35 U/L (17-59); Albumin 4.2 g/dl (3.5-5.0); Alkaline Phosphatase 137 U/L (38-126); Blood Urea Nitrogen 21 mg/dl (9-20); Calcium 9.3 mg/dl (8.4-10.2); Carbon Dioxide 27 mmol/L (22-30); Chloride 106 mmol/L (98-107); Glucose 144 mg/dl (70-99); Potassium 4.6 mmol/L (3.5-5.1); Sodium 140 mmol/L (135-145); Total Protein 6.5 g/dl (6.3-8.2); Uric Acid 5.2 mg/dl (3.5-8.5); eGFR 53.74
[2025-02-16 12:10] LABS: Nucleated Red Blood Cells % 0 % (-)
== END ==
LOC: REG 10:09
PROVIDERS: ATTENDING PHYSICIAN Internal Medicine Hematology & Oncology
DX: C85.95 Non-Hodgkin lymphoma, unspecified, lymph nodes of inguinal region and lower limb (principal); G89.3 Neoplasm related pain (acute) (chronic)
CPT/HCPCS: 36415; 80053; 84550; 85025

== ENCOUNTER 2025-02-28 14:37 | Emergency (ER) | payer OTHER, MEDICARE, SELFPAY ==
[2025-02-28 14:38] VITALS: BP 185/110
[2025-02-28 14:51] LABS: Urine Character Mucous (Clear)
[2025-02-28 14:56] LABS: Urine White Cell >100 /HPF (0-5)
[2025-02-28 14:57] LABS: Urine Red Blood Cell 26-30 /HPF (0-2); Urine Squamous Cell 0-2 /LPF (Few)
--- NOTE | 2025-02-28 16:10 | ED.GENMED ---
Addendum entered and electronically signed by Lien Redd PA-C 03/03/25 06:07:
olivraes sensntivie e coli
on cefdinir
Original Note:
History of Present Illness
General
Chief Complaint: Male Genito-Urinary Symptoms
Source: patient
Time Seen by Provider: 02/28/25 15:47
History of Present Illness
History of Present Illness:
69-year-old male with history of lymphoma presents with 2 days worth of urinary symptoms such as dysuria and frequency. There is no associated fever flank pain or vomiting. He is currently on immunotherapy for his lymphoma. He has a history of
UTIs in the past and this feels similar.
Past History
Past History
ED Past Medical History: Other (Follicular lymphoma, hypertension, hyperlipidemia, kidney stone)
Social History
Tobacco: Non-smoker
Drug: None
Personal:
Living: with family
Phy Exam
Physical Exam
Physical Exam:
General: Well-appearing male no acute respiratory
HEENT normocephalic atraumatic
Abdomen soft nontender no costovertebral angle tenderness
Extremities: No cyanosis
Course
Orders/Labs/Results
Orders:
Orders
02/28/25 14:44
Urinalysis Reflex To Culture Urgent
Date Specimen was Collected: 02/28/25
Time Specimen was Collected: 14:40
Urine Microscopic Reflex Cult Urgent
Urine Culture Urgent
KAVON Source: U
Specimen Description:
Obtained by: Random
Date Specimen was Collected: 02/28/25
Time Specimen was Collected: 14:40
02/28/25 16:09
Cefdinir [Omnicef] 300 mg PO NOW STA
Abnormal Lab Results
02/28/25
14:44
Ur Occult Blood Reflex 4+ A
(Negative)
Leukocyte Esterase Rfl 3+ A
(Negative)
Urine RBC 26-30 A /HPF
(0-2)
Urine WBC (Reflex) >100 A /HPF
(0-5)
Urine Bacteria (Reflex) Moderate A
(Negative)
Urine Albumin (Reflex) 2+ A
(Neg - Trace)
Vital Signs
Initial and Last Documented VS:
Initial Vital Signs
Temp Pulse Resp BP Pulse Ox
98.8 F 88 17 185/110 99
02/28/25 14:38 02/28/25 14:38 02/28/25 14:38 02/28/25 14:38 02/28/25 14:38
Last Documented Vital Signs
Temp Pulse Resp BP Pulse Ox
98.8 F 88 17 185/110 99
02/28/25 14:38 02/28/25 14:38 02/28/25 14:38 02/28/25 14:38 02/28/25 14:38
MDM/Problems Addressed
Differential Diagnosis Includes:
Urinary symptoms. Consider UTI for cystitis. No pain to suggest renal colic. No fever or vomiting to suggest pyelonephritis.
Urinalysis consistent with UTI. Will start on Omnicef. Culture pending. No indication for any labs or further
*Pulse Oximetry
SaO2: 99
Oxygen Mode of Delivery: Room air
Patient hypoxic: no
*Critical Care Note
Total Time (30-74mins, 75-104mins- exclusive of procedures): Not Applicable
ED Attending Note
-
Portions of this chart may have been created with voice recognition software.� Occasional wrong word or��sound alike� substitutions may have occurred due to the inherent limitations of voice recognition software.
Discharge Plan
Departure
Patient Disposition: Home (Routine Discharge)
Date of Disposition: 02/28/25
Time of Disposition: 16:12
Patient with high blood pressure during this ER visit?: No
Discharge Problem:
Acute UTI
Instructions: Urinary tract infections in adults
Prescriptions:
New
cefdinir 300 mg capsule
300 mg PO BID Qty: 13 0RF
No Action
terazosin 2 mg capsule
4 mg PO QPM
acyclovir 400 mg Tablet
400 mg PO BID
allopurinol 300 mg Tablet
300 mg PO QPM
Medical Marijuana
2 gummy PO DAILYPRN PRN (Reason: mild pains/anxiety)
ondansetron HCl 8 mg Tablet
8 mg PO [id number] PRN (Reason: nausea)
acetaminophen [Tylenol 8 Hour] 650 mg Tablet Extended Release
1,300 mg PO [id number] PRN (Reason: mild pain)
docusate sodium [Colace] 100 mg Capsule
100 mg PO BID
loratadine [Claritin] 10 mg Tablet
10 mg PO DAILY@1500
oxycodone 10 mg Tablet
10 mg PO Q6HPRN PRN (Reason: severe pain)
atorvastatin 40 mg Tablet
40 mg PO QPM Qty: 30 1RF
pantoprazole 40 mg Tablet,Delayed Release (Dr/Ec)
40 mg PO DAILY Qty: 30 1RF
aspirin 81 mg Tablet,Chewable
81 mg PO DAILY Qty: 0 0RF
clopidogrel 75 mg Tablet
75 mg PO DAILY Qty: 30 1RF
metoprolol succinate [Toprol XL] 25 mg tablet extended release 24 hr
25 mg PO DAILY Qty: 30 1RF
gabapentin 100 mg Capsule
100 mg PO TID Qty: 30 0RF
Referrals:
Conor Ackerman DO [Family Provider, Hematology / Oncology]
Activity Restrictions/Additional Instructions:
Take antibiotics as directed. Drink plenty of fluids. Return here if worse otherwise follow-up with your doctor
Interventions
Interventions:
*Risk Screen - Suicide Last Done: 02/28/25 14:39
*General Assessment Last Done: 02/28/25 14:39
*Neglect/Abuse Screening Last Done: 02/28/25 14:39
*ED COVID-19 Vaccine History Last Done: 02/28/25 14:39
Discharge Date and Time
Print Language: SLOVENIAN
[2025-02-28] MEDS: OMNICEF 300 MG PO (16:21)
== END 2025-02-28 16:29 | disposition home or self-care (01) ==
LOC: EMR 14:37
PROVIDERS: Emergency Medicine; EMERGENCY PHYSICIAN Emergency Medicine; FAMILY PHYSICIAN Internal Medicine Hematology & Oncology
DX: N39.0 Urinary tract infection, site not specified (principal); Z85.72 Personal history of non-Hodgkin lymphomas; I10 Essential (primary) hypertension; E78.00 Pure hypercholesterolemia, unspecified; Z87.440 Personal history of urinary (tract) infections; Z87.442 Personal history of urinary calculi
CPT/HCPCS: 99282; 81003; 81015; 87086; 87088; 87186

== ENCOUNTER → 2025-03-03 12:30 | Outpatient (REF) | payer OTHER, MEDICARE, SELFPAY ==
[2025-03-03 13:50] LABS: Hematocrit 30.2 % (39.0-52.0); Hemoglobin 10.4 g/dL (13.0-18.0); Mean Corp Hgb Conc. 34.4 g/dL (33.0-37.0); Mean Corpuscular Volume 104.9 fL (80.0-94.0); Nucleated Red Blood Cells % 0 % (-); Platelet Count 134 10^3/uL (130-400); Red Cell Dist. Width 17.2 % (11.5-14.5)
[2025-03-03 14:27] LABS: ALT (SGPT) 38 U/L (0-50); AST (SGOT) 36 U/L (17-59); Albumin 3.9 g/dl (3.5-5.0); Alkaline Phosphatase 178 U/L (38-126); Blood Urea Nitrogen 17 mg/dl (9-20); Calcium 9.0 mg/dl (8.4-10.2); Carbon Dioxide 26 mmol/L (22-30); Chloride 106 mmol/L (98-107); Glucose 115 mg/dl (70-99); Potassium 5.0 mmol/L (3.5-5.1); Sodium 140 mmol/L (135-145); Total Protein 6.0 g/dl (6.3-8.2); eGFR > 60.00
[2025-03-03 16:11] LABS: Uric Acid 4.8 mg/dl (3.5-8.5)
== END ==
LOC: REG 12:30
PROVIDERS: ATTENDING PHYSICIAN Internal Medicine Hematology & Oncology
DX: C82.95 Follicular lymphoma, unspecified, lymph nodes of inguinal region and lower limb (principal); G89.3 Neoplasm related pain (acute) (chronic)
CPT/HCPCS: 36415; 80053; 84550; 85025

== ENCOUNTER → 2025-03-09 10:29 | Outpatient (REF) | payer OTHER, MEDICARE, SELFPAY ==
[2025-03-09 12:05] LABS: Hematocrit 32.7 % (39.0-52.0); Hemoglobin 11.2 g/dL (13.0-18.0); Mean Corp Hgb Conc. 34.3 g/dL (33.0-37.0); Mean Corpuscular Volume 105.1 fL (80.0-94.0); Platelet Count 153 10^3/uL (130-400); Red Cell Dist. Width 17.6 % (11.5-14.5)
[2025-03-09 12:17] LABS: Nucleated Red Blood Cells % 0 % (-)
[2025-03-09 12:38] LABS: ALT (SGPT) 26 U/L (0-50); AST (SGOT) 32 U/L (17-59); Albumin 4.0 g/dl (3.5-5.0); Alkaline Phosphatase 143 U/L (38-126); Blood Urea Nitrogen 17 mg/dl (9-20); Calcium 9.2 mg/dl (8.4-10.2); Carbon Dioxide 25 mmol/L (22-30); Chloride 105 mmol/L (98-107); Glucose 137 mg/dl (70-99); Potassium 4.3 mmol/L (3.5-5.1); Sodium 138 mmol/L (135-145); Total Protein 6.0 g/dl (6.3-8.2); Uric Acid 5.1 mg/dl (3.5-8.5); eGFR > 60.00
== END ==
LOC: REG 10:29
PROVIDERS: ATTENDING PHYSICIAN Internal Medicine Hematology & Oncology
DX: C82.95 Follicular lymphoma, unspecified, lymph nodes of inguinal region and lower limb (principal); G89.3 Neoplasm related pain (acute) (chronic)
CPT/HCPCS: 36415; 80053; 84550; 85025

== ENCOUNTER → 2025-03-19 10:04 | Outpatient (REF) | payer OTHER, MEDICARE, SELFPAY ==
[2025-03-19 11:07] LABS: Hematocrit 33.8 % (39.0-52.0); Hemoglobin 11.4 g/dL (13.0-18.0); Mean Corp Hgb Conc. 33.7 g/dL (33.0-37.0); Mean Corpuscular Volume 108.0 fL (80.0-94.0); Platelet Count 123 10^3/uL (130-400); Red Cell Dist. Width 16.5 % (11.5-14.5)
[2025-03-19 11:23] LABS: Absolute Neutrophils -Man Diff 16.1 10^3/uL (1.4-6.5); Platelets Checked Yes
[2025-03-19 11:24] LABS: Normal RBC Morphology Yes; Total Cells Counted 100
[2025-03-19 11:36] LABS: ALT (SGPT) 30 U/L (0-50); AST (SGOT) 37 U/L (17-59); Albumin 3.9 g/dl (3.5-5.0); Alkaline Phosphatase 175 U/L (38-126); Blood Urea Nitrogen 17 mg/dl (9-20); Calcium 9.2 mg/dl (8.4-10.2); Carbon Dioxide 27 mmol/L (22-30); Chloride 106 mmol/L (98-107); Glucose 132 mg/dl (70-99); Potassium 4.0 mmol/L (3.5-5.1); Sodium 140 mmol/L (135-145); Total Protein 6.0 g/dl (6.3-8.2); Uric Acid 6.0 mg/dl (3.5-8.5); eGFR > 60.00
== END ==
LOC: REG 10:04
PROVIDERS: ATTENDING PHYSICIAN Internal Medicine Hematology & Oncology
DX: C82.95 Follicular lymphoma, unspecified, lymph nodes of inguinal region and lower limb (principal); G89.3 Neoplasm related pain (acute) (chronic)
CPT/HCPCS: 36415; 80053; 84550; 85025

== ENCOUNTER → 2025-03-30 10:52 | Outpatient (REF) | payer OTHER, MEDICARE, SELFPAY ==
[2025-03-30 12:07] LABS: Hematocrit 31.5 % (39.0-52.0); Hemoglobin 10.5 g/dL (13.0-18.0); Mean Corp Hgb Conc. 33.3 g/dL (33.0-37.0); Mean Corpuscular Volume 109.4 fL (80.0-94.0); Platelet Count 157 10^3/uL (130-400); Red Cell Dist. Width 15.9 % (11.5-14.5)
[2025-03-30 12:23] LABS: Nucleated Red Blood Cells % 0 % (-)
[2025-03-30 12:53] LABS: ALT (SGPT) 24 U/L (0-50); AST (SGOT) 29 U/L (17-59); Albumin 3.6 g/dl (3.5-5.0); Alkaline Phosphatase 147 U/L (38-126); Blood Urea Nitrogen 20 mg/dl (9-20); Calcium 9.3 mg/dl (8.4-10.2); Carbon Dioxide 27 mmol/L (22-30); Chloride 105 mmol/L (98-107); Glucose 139 mg/dl (70-99); Potassium 4.4 mmol/L (3.5-5.1); Sodium 138 mmol/L (135-145); Total Protein 5.6 g/dl (6.3-8.2); Uric Acid 5.3 mg/dl (3.5-8.5); eGFR 58.73
== END ==
LOC: REG 10:52
PROVIDERS: ATTENDING PHYSICIAN Internal Medicine Hematology & Oncology
DX: C82.95 Follicular lymphoma, unspecified, lymph nodes of inguinal region and lower limb (principal); G89.3 Neoplasm related pain (acute) (chronic)
CPT/HCPCS: 36415; 80053; 84550; 85025

== ENCOUNTER → 2025-04-09 09:18 | Outpatient (REF) | payer OTHER, MEDICARE, SELFPAY ==
[2025-04-09 10:34] LABS: Hematocrit 34.4 % (39.0-52.0); Hemoglobin 11.4 g/dL (13.0-18.0); Mean Corp Hgb Conc. 33.1 g/dL (33.0-37.0); Mean Corpuscular Volume 107.5 fL (80.0-94.0); Platelet Count 127 10^3/uL (130-400); Red Cell Dist. Width 14.6 % (11.5-14.5)
[2025-04-09 10:36] LABS: Nucleated Red Blood Cells % 0 % (-)
[2025-04-09 10:54] LABS: ALT (SGPT) 45 U/L (0-50); AST (SGOT) 44 U/L (17-59); Albumin 3.8 g/dl (3.5-5.0); Alkaline Phosphatase 240 U/L (38-126); Blood Urea Nitrogen 18 mg/dl (9-20); Calcium 9.3 mg/dl (8.4-10.2); Carbon Dioxide 28 mmol/L (22-30); Chloride 107 mmol/L (98-107); Glucose 124 mg/dl (70-99); Potassium 4.6 mmol/L (3.5-5.1); Sodium 140 mmol/L (135-145); Total Protein 5.8 g/dl (6.3-8.2); Uric Acid 4.8 mg/dl (3.5-8.5); eGFR > 60.00
== END ==
LOC: REG 09:18
PROVIDERS: ATTENDING PHYSICIAN Internal Medicine Hematology & Oncology
DX: C82.95 Follicular lymphoma, unspecified, lymph nodes of inguinal region and lower limb (principal); G89.3 Neoplasm related pain (acute) (chronic)
CPT/HCPCS: 36415; 80053; 84550; 85025

== ENCOUNTER → 2025-04-15 11:05 | Outpatient (REF) | payer MEDICARE, OTHER, SELFPAY ==
[2025-04-15 11:51] LABS: Hematocrit 33.3 % (39.0-52.0); Hemoglobin 11.4 g/dL (13.0-18.0); Mean Corp Hgb Conc. 34.2 g/dL (33.0-37.0); Mean Corpuscular Volume 107.4 fL (80.0-94.0); Nucleated Red Blood Cells % 0 % (-); Platelet Count 148 10^3/uL (130-400); Red Cell Dist. Width 14.6 % (11.5-14.5)
[2025-04-15 12:31] LABS: ALT (SGPT) 34 U/L (0-50); AST (SGOT) 43 U/L (17-59); Albumin 3.8 g/dl (3.5-5.0); Alkaline Phosphatase 222 U/L (38-126); Blood Urea Nitrogen 17 mg/dl (9-20); Calcium 9.3 mg/dl (8.4-10.2); Carbon Dioxide 26 mmol/L (22-30); Chloride 105 mmol/L (98-107); Glucose 121 mg/dl (70-99); Potassium 4.4 mmol/L (3.5-5.1); Sodium 138 mmol/L (135-145); Total Protein 6.0 g/dl (6.3-8.2); Uric Acid 5.0 mg/dl (3.5-8.5); eGFR > 60.00
== END ==
LOC: REG 11:05
PROVIDERS: ATTENDING PHYSICIAN Internal Medicine Hematology & Oncology
DX: C82.95 Follicular lymphoma, unspecified, lymph nodes of inguinal region and lower limb (principal); G89.3 Neoplasm related pain (acute) (chronic)
CPT/HCPCS: 36415; 80053; 84550; 85025

== ENCOUNTER → 2025-04-20 10:00 | Outpatient (REF) | payer MEDICARE, OTHER, SELFPAY ==
[2025-04-20 11:26] LABS: Hematocrit 31.5 % (39.0-52.0); Hemoglobin 10.9 g/dL (13.0-18.0); Mean Corp Hgb Conc. 34.6 g/dL (33.0-37.0); Mean Corpuscular Volume 108.6 fL (80.0-94.0); Platelet Count 157 10^3/uL (130-400); Red Cell Dist. Width 14.6 % (11.5-14.5)
[2025-04-20 11:40] LABS: ALT (SGPT) 21 U/L (0-50); AST (SGOT) 30 U/L (17-59); Albumin 3.6 g/dl (3.5-5.0); Alkaline Phosphatase 165 U/L (38-126); Calcium 9.1 mg/dl (8.4-10.2); Carbon Dioxide 26 mmol/L (22-30); Chloride 106 mmol/L (98-107); Glucose 126 mg/dl (70-99); Potassium 4.3 mmol/L (3.5-5.1); Sodium 139 mmol/L (135-145); Total Protein 5.7 g/dl (6.3-8.2); Uric Acid 4.9 mg/dl (3.5-8.5); eGFR > 60.00
[2025-04-20 11:50] LABS: Blood Urea Nitrogen 17 mg/dl (9-20)
[2025-04-20 13:40] LABS: Nucleated Red Blood Cells % 0 % (-)
== END ==
LOC: REG 10:00
PROVIDERS: ATTENDING PHYSICIAN Internal Medicine Hematology & Oncology
DX: C82.95 Follicular lymphoma, unspecified, lymph nodes of inguinal region and lower limb (principal); G89.3 Neoplasm related pain (acute) (chronic)
CPT/HCPCS: 36415; 80053; 84550; 85025

== ENCOUNTER → 2025-05-06 09:54 | Outpatient (REF) | payer MEDICARE, OTHER, SELFPAY ==
[2025-05-06 10:32] LABS: Hematocrit 32.8 % (39.0-52.0); Hemoglobin 11.2 g/dL (13.0-18.0); Mean Corp Hgb Conc. 34.1 g/dL (33.0-37.0); Mean Corpuscular Volume 108.3 fL (80.0-94.0); Nucleated Red Blood Cells % 0 % (-); Platelet Count 138 10^3/uL (130-400); Red Cell Dist. Width 14.2 % (11.5-14.5)
[2025-05-06 11:17] LABS: ALT (SGPT) 35 U/L (0-50); AST (SGOT) 42 U/L (17-59); Albumin 3.7 g/dl (3.5-5.0); Alkaline Phosphatase 257 U/L (38-126); Blood Urea Nitrogen 17 mg/dl (9-20); Calcium 9.0 mg/dl (8.4-10.2); Carbon Dioxide 28 mmol/L (22-30); Chloride 106 mmol/L (98-107); Glucose 117 mg/dl (70-99); Potassium 4.4 mmol/L (3.5-5.1); Sodium 138 mmol/L (135-145); Total Protein 5.7 g/dl (6.3-8.2); eGFR > 60.00
== END ==
LOC: REG 09:54
PROVIDERS: ATTENDING PHYSICIAN Internal Medicine Hematology & Oncology
DX: C82.89 Other types of follicular lymphoma, extranodal and solid organ sites (principal); G89.3 Neoplasm related pain (acute) (chronic)
CPT/HCPCS: 36415; 80053; 82784; 85025

== ENCOUNTER → 2025-05-11 11:33 | Outpatient (REF) | payer MEDICARE, OTHER, SELFPAY ==
[2025-05-11 12:49] LABS: ALT (SGPT) 43 U/L (0-50); AST (SGOT) 44 U/L (17-59); Albumin 3.8 g/dl (3.5-5.0); Alkaline Phosphatase 300 U/L (38-126); Blood Urea Nitrogen 17 mg/dl (9-20); Calcium 9.3 mg/dl (8.4-10.2); Carbon Dioxide 27 mmol/L (22-30); Chloride 105 mmol/L (98-107); Glucose 126 mg/dl (70-99); Potassium 4.3 mmol/L (3.5-5.1); Sodium 138 mmol/L (135-145); Total Protein 5.9 g/dl (6.3-8.2); Uric Acid 4.6 mg/dl (3.5-8.5); eGFR > 60.00
[2025-05-11 12:55] LABS: Hematocrit 33.9 % (39.0-52.0); Hemoglobin 11.4 g/dL (13.0-18.0); Mean Corp Hgb Conc. 33.6 g/dL (33.0-37.0); Mean Corpuscular Volume 105.9 fL (80.0-94.0); Nucleated Red Blood Cells % 0 % (-); Red Cell Dist. Width 14.6 % (11.5-14.5)
[2025-05-11 13:41] LABS: Platelet Count 165 10^3/uL (130-400)
== END ==
LOC: REG 11:33
PROVIDERS: ATTENDING PHYSICIAN Internal Medicine Hematology & Oncology
DX: C82.95 Follicular lymphoma, unspecified, lymph nodes of inguinal region and lower limb (principal); G89.3 Neoplasm related pain (acute) (chronic); Z79.899 Other long term (current) drug therapy
CPT/HCPCS: 36415; 80053; 84550; 85025

== ENCOUNTER → 2025-05-21 11:13 | Outpatient (REF) | payer MEDICARE, OTHER, SELFPAY ==
[2025-05-21 12:07] LABS: Hematocrit 35.3 % (39.0-52.0); Hemoglobin 12.0 g/dL (13.0-18.0); Mean Corp Hgb Conc. 34.0 g/dL (33.0-37.0); Mean Corpuscular Volume 108.3 fL (80.0-94.0); Platelet Count 118 10^3/uL (130-400); Red Cell Dist. Width 14.4 % (11.5-14.5)
[2025-05-21 12:41] LABS: ALT (SGPT) 92 U/L (0-50); AST (SGOT) 90 U/L (17-59); Albumin 3.7 g/dl (3.5-5.0); Alkaline Phosphatase 418 U/L (38-126); Blood Urea Nitrogen 17 mg/dl (9-20); Calcium 9.3 mg/dl (8.4-10.2); Carbon Dioxide 27 mmol/L (22-30); Chloride 107 mmol/L (98-107); Glucose 116 mg/dl (70-99); Potassium 4.1 mmol/L (3.5-5.1); Sodium 136 mmol/L (135-145); Total Protein 6.4 g/dl (6.3-8.2); Uric Acid 4.4 mg/dl (3.5-8.5); eGFR > 60.00
[2025-05-21 12:48] LABS: Nucleated Red Blood Cells % 0 % (-)
== END ==
LOC: REG 11:13
PROVIDERS: ATTENDING PHYSICIAN Internal Medicine Hematology & Oncology
DX: C82.95 Follicular lymphoma, unspecified, lymph nodes of inguinal region and lower limb (principal); G89.3 Neoplasm related pain (acute) (chronic)
CPT/HCPCS: 36415; 80053; 84550; 85025

== ENCOUNTER → 2025-05-28 10:00 | Outpatient (REF) | payer MEDICARE, OTHER, SELFPAY ==
[2025-05-28 12:16] LABS: Hematocrit 35.5 % (39.0-52.0); Hemoglobin 11.5 g/dL (13.0-18.0); Mean Corp Hgb Conc. 32.4 g/dL (33.0-37.0); Mean Corpuscular Volume 110.9 fL (80.0-94.0); Platelet Count 153 10^3/uL (130-400); Red Cell Dist. Width 14.9 % (11.5-14.5)
[2025-05-28 12:34] LABS: ALT (SGPT) 59 U/L (0-50); AST (SGOT) 57 U/L (17-59); Albumin 3.7 g/dl (3.5-5.0); Alkaline Phosphatase 413 U/L (38-126); Blood Urea Nitrogen 17 mg/dl (9-20); Calcium 9.2 mg/dl (8.4-10.2); Carbon Dioxide 30 mmol/L (22-30); Chloride 102 mmol/L (98-107); Glucose 110 mg/dl (70-99); Potassium 4.0 mmol/L (3.5-5.1); Sodium 136 mmol/L (135-145); Total Protein 6.4 g/dl (6.3-8.2); Uric Acid 4.8 mg/dl (3.5-8.5); eGFR > 60.00
[2025-05-28 13:20] LABS: Nucleated Red Blood Cells % 0 % (-)
== END ==
LOC: REG 10:00
PROVIDERS: ATTENDING PHYSICIAN Internal Medicine Hematology & Oncology
DX: C82.95 Follicular lymphoma, unspecified, lymph nodes of inguinal region and lower limb (principal); G89.3 Neoplasm related pain (acute) (chronic)
CPT/HCPCS: 36415; 80053; 84550; 85025

== ENCOUNTER → 2025-06-03 10:06 | Outpatient (REF) | payer MEDICARE, OTHER, SELFPAY ==
[2025-06-03 11:20] LABS: Hematocrit 34.4 % (39.0-52.0); Hemoglobin 11.3 g/dL (13.0-18.0); Mean Corp Hgb Conc. 32.8 g/dL (33.0-37.0); Mean Corpuscular Volume 108.5 fL (80.0-94.0); Nucleated Red Blood Cells % 0 % (-); Platelet Count 170 10^3/uL (130-400); Red Cell Dist. Width 15.2 % (11.5-14.5)
[2025-06-03 12:33] LABS: ALT (SGPT) 66 U/L (0-50); AST (SGOT) 80 U/L (17-59); Albumin 3.7 g/dl (3.5-5.0); Alkaline Phosphatase 376 U/L (38-126); Blood Urea Nitrogen 17 mg/dl (9-20); Calcium 9.0 mg/dl (8.4-10.2); Carbon Dioxide 28 mmol/L (22-30); Chloride 106 mmol/L (98-107); Glucose 119 mg/dl (70-99); Potassium 4.4 mmol/L (3.5-5.1); Sodium 141 mmol/L (135-145); Total Protein 6.2 g/dl (6.3-8.2); Uric Acid 4.2 mg/dl (3.5-8.5); eGFR > 60.00
== END ==
LOC: REG 10:06
PROVIDERS: ATTENDING PHYSICIAN Internal Medicine Hematology & Oncology
DX: C82.95 Follicular lymphoma, unspecified, lymph nodes of inguinal region and lower limb (principal); G89.3 Neoplasm related pain (acute) (chronic); D80.1 Nonfamilial hypogammaglobulinemia
CPT/HCPCS: 36415; 80053; 84550; 85025

== ENCOUNTER → 2025-06-11 10:50 | Outpatient (REF) | payer MEDICARE, OTHER, SELFPAY ==
[2025-06-11 11:43] LABS: Hematocrit 33.2 % (39.0-52.0); Hemoglobin 11.1 g/dL (13.0-18.0); Mean Corp Hgb Conc. 33.4 g/dL (33.0-37.0); Mean Corpuscular Volume 111.8 fL (80.0-94.0); Nucleated Red Blood Cells % 0 % (-); Platelet Count 192 10^3/uL (130-400); Red Cell Dist. Width 15.5 % (11.5-14.5)
[2025-06-11 12:19] LABS: ALT (SGPT) 47 U/L (0-50); AST (SGOT) 67 U/L (17-59); Albumin 3.6 g/dl (3.5-5.0); Alkaline Phosphatase 362 U/L (38-126); Blood Urea Nitrogen 15 mg/dl (9-20); Calcium 9.3 mg/dl (8.4-10.2); Carbon Dioxide 27 mmol/L (22-30); Chloride 106 mmol/L (98-107); Glucose 117 mg/dl (70-99); Potassium 4.4 mmol/L (3.5-5.1); Sodium 137 mmol/L (135-145); Total Protein 5.9 g/dl (6.3-8.2); Uric Acid 4.3 mg/dl (3.5-8.5); eGFR > 60.00
== END ==
LOC: REG 10:50
PROVIDERS: ATTENDING PHYSICIAN Internal Medicine Hematology & Oncology
DX: G89.3 Neoplasm related pain (acute) (chronic) (principal); C82.95 Follicular lymphoma, unspecified, lymph nodes of inguinal region and lower limb; D80.1 Nonfamilial hypogammaglobulinemia
CPT/HCPCS: 36415; 80053; 82784; 84550; 85025

== ENCOUNTER → 2025-06-18 12:06 | Outpatient (REF) | payer MEDICARE, OTHER, SELFPAY ==
[2025-06-18 13:27] LABS: Hematocrit 33.6 % (39.0-52.0); Hemoglobin 11.0 g/dL (13.0-18.0); Mean Corp Hgb Conc. 32.7 g/dL (33.0-37.0); Mean Corpuscular Volume 111.6 fL (80.0-94.0); Nucleated Red Blood Cells % 0 % (-); Platelet Count 167 10^3/uL (130-400); Red Cell Dist. Width 15.4 % (11.5-14.5)
[2025-06-18 13:51] LABS: ALT (SGPT) 43 U/L (0-50); AST (SGOT) 65 U/L (17-59); Albumin 3.5 g/dl (3.5-5.0); Alkaline Phosphatase 390 U/L (38-126); Blood Urea Nitrogen 13 mg/dl (9-20); Calcium 8.8 mg/dl (8.4-10.2); Carbon Dioxide 27 mmol/L (22-30); Chloride 105 mmol/L (98-107); Glucose 101 mg/dl (70-99); Potassium 4.2 mmol/L (3.5-5.1); Sodium 136 mmol/L (135-145); Total Protein 6.3 g/dl (6.3-8.2); Uric Acid 4.7 mg/dl (3.5-8.5); eGFR > 60.00
== END ==
LOC: REG 12:06
PROVIDERS: ATTENDING PHYSICIAN Internal Medicine Hematology & Oncology
DX: C82.95 Follicular lymphoma, unspecified, lymph nodes of inguinal region and lower limb (principal); G89.3 Neoplasm related pain (acute) (chronic); D80.1 Nonfamilial hypogammaglobulinemia
CPT/HCPCS: 36415; 80053; 84550; 85025

== ENCOUNTER → 2025-07-06 11:11 | Outpatient (REF) | payer MEDICARE, OTHER, SELFPAY ==
[2025-07-06 11:45] LABS: Hematocrit 33.2 % (39.0-52.0); Hemoglobin 11.0 g/dL (13.0-18.0); Mean Corp Hgb Conc. 33.1 g/dL (33.0-37.0); Mean Corpuscular Volume 106.4 fL (80.0-94.0); Nucleated Red Blood Cells % 0 % (-); Platelet Count 160 10^3/uL (130-400); Red Cell Dist. Width 14.6 % (11.5-14.5)
[2025-07-06 16:01] LABS: ALT (SGPT) 34 U/L (0-50); AST (SGOT) 53 U/L (17-59); Albumin 3.8 g/dl (3.5-5.0); Alkaline Phosphatase 267 U/L (38-126); Blood Urea Nitrogen 17 mg/dl (9-20); Calcium 9.2 mg/dl (8.4-10.2); Carbon Dioxide 28 mmol/L (22-30); Chloride 106 mmol/L (98-107); Glucose 121 mg/dl (70-99); Potassium 4.3 mmol/L (3.5-5.1); Sodium 138 mmol/L (135-145); Total Protein 6.2 g/dl (6.3-8.2); Uric Acid 4.0 mg/dl (3.5-8.5); eGFR > 60.00
== END ==
LOC: REG 11:11
PROVIDERS: ATTENDING PHYSICIAN Internal Medicine Hematology & Oncology
DX: C82.95 Follicular lymphoma, unspecified, lymph nodes of inguinal region and lower limb (principal); G89.3 Neoplasm related pain (acute) (chronic); D80.1 Nonfamilial hypogammaglobulinemia
CPT/HCPCS: 36415; 80053; 82784; 84550; 85025